=== PATIENT | male | born 1945 | race Caucasian/White ===

== ENCOUNTER 2017-01-22 18:05 | Inpatient (IN) ==
--- NOTE | 2017-01-22 18:23 | Emergency Department Note ---
Disposition Clinical Impression: Suicidal ideation, Syncope Disposition: Still a Patient Condition: Fair Referrals: NO,PCP [Primary Care Provider] - Forms: ED Satisfaction Letter Time of Disposition: 18:47 Psych HPI - General Chief Complaint: ED Psychiatric Symptoms Stated Complaint: unresponsive/suicidal Time Seen by Provider: 01/22/17 18:08 Source: patient, EMS Mode of arrival: EMS Limitations: altered mental status Nursing Notes Reviewed: Yes Vital Signs Reviewed: Yes - History of Present Illness HPI Narrative: Patient presents to the ED via EMS after being found unresponsive. EMS reports that they were called to the scene after a family member found the patient fully closed, laying face down in the bathtub with a bloody nose. EMS states that they rolled the patient over and he was very pale and dusky. States that he had a very weak thready pulse with a rate of 40 that was barely palpable. After rolling him over on his back. He did become more awake and alert. IV was established in route and fluids are started. Upon arrival to the emergency department, the patient is awake and states that he just wants to . He states that he cannot take it anymore. He admits to drinking a large amount of alcohol today, much more than usual. He denies any ingestions. He does not remember what happened. EMS reports that it looked like he would have walked into the bathroom and thrown himself over a cabinet into the bathtub. Patient denies suicide attempt but states that he just wants to go to sleep and . He complains of a headache. And neck pain. No changes in vision, chest pain, shortness of breath, abdominal pain, nausea or vomiting. He is unsure of the medical problems he has. - Related Data Home Medications Medication Instructions Recorded Confirmed Buspirone HCl [Buspar] 7.5 mg PO BID 04/23/15 04/23/15 Calcium Carbonate/Vitamin D3 2 cap PO QPM 04/23/15 04/23/15 [Calcium 600 + Vitamin D Sftgl] Cinnamon Bark [Cinnamon] 1,000 mg PO DAILY 04/23/15 04/23/15 Cyanocobalamin (Vitamin B-12) 1,000 mcg PO DAILY 04/23/15 04/23/15 [Vitamin B12] Docusate [Colace] 100 mg PO TID PRN 04/23/15 04/23/15 Fexofenadine HCl 180 mg PO HS 04/23/15 04/23/15 Finasteride 5 mg PO DAILY 04/23/15 04/23/15 Fluticasone Propionate 16 gm NS BID 04/23/15 04/23/15 Saw [place] Fruit [Saw [place]] 900 mg PO BID 04/23/15 04/23/15 TraZODone 50 mg PO HS PRN 04/23/15 04/23/15 Vitamin B Complex 1 each PO DAILY 04/23/15 04/23/15 Previous Rx's Medication Instructions Recorded Aspirin Enteric Coated [Aspirin EC] 81 mg PO DAILY tablet. 04/24/15 FLUoxetine HCl [PROzac] 20 mg PO DAILY #14 capsule 04/24/15 Lisinopril [Prinivil] 10 mg PO 14 #14 tablet 04/24/15 Metoprolol [Lopressor] 25 mg PO BID #28 tablet 04/24/15 Paroxetine [Paxil] 20 mg PO DAILY #14 tablet 04/24/15 Allergies Allergy/AdvReac Type Severity Reaction Status Date / Time No Known Allergies Allergy Verified 04/23/15 07:13 All systems ED: reviewed and negative except as stated. (Although I do question if the patient is reliable) ENT ED: Reports: epistaxis Musculoskeletal: Reports: neck pain Neurological: Reports: headache Psychiatric: Reports: depression, suicidal thoughts Past Medical History - Past Medical History Attestation: Yes The following information was validated with the patient. Source: old records reviewed Medical history: Reports: other Surgical history: Reports: cataract, other (sigmoid diverticulitis with pericolic abscess s/p exp lap, s/p sigmoid resection 01/2012) Psychiatric history: Reports: anxiety, depression - Social History Smoking Status: Never smoker Smokeless Tobacco Status: No Alcohol use: Reports: heavy, recent Drug use: Reports: none Physical Exam - General Limitations: other General appearance: appears intoxicated, lethargic - Head Head exam: other (Multiple abrasions and dried blood. Hematomas to the head.) - Eye Eye exam: Present: normal appearance, PERRL, EOMI, other (EMS reports that the patient's pupils were 2 mm and barely reactive upon arrival, they are 3 mm and briskly reactive currently) - ENT ENT exam: other (Tried blood in the left nose, extensive amount of dried blood in the face. No facial crepitus or obvious fractures) - Neck Neck exam: Present: tenderness (Midline) - Chest Chest inspection: Present: normal inspection, symmetric chest wall rise - Respiratory Respiratory exam: Present: normal lung sounds bilaterally - Cardiovascular Cardiovascular exam: Present: regular rate, normal rhythm, normal heart sounds - Abdominal Exam Abdominal exam: Present: soft, Non-Tender. Absent: tenderness, distention, guarding, rebound, rigidity - Extremities Exam Extremities exam: Present: normal inspection, full ROM. Absent: tenderness, pedal edema - Neurological Exam Neurological exam: Present: alert, oriented X3, CN II-XII intact - Psychiatric Psychiatric exam: Present: depressed - Skin Skin exam: Present: warm, dry, normal color Course - Reevaluation(s) Reevaluation #1: Patient with labs and CT imaging. Differential is very broad. Patient is suicidal currently. Full tox screen. Could be related to syncope or worse. He was admitted to him. He will be signed out to the incoming night time team. Vital Signs Temperature 97.6 F 01/22/17 18:08 Pulse Rate 67 01/22/17 18:08 Respiratory Rate 16 01/22/17 18:08 Blood Pressure 119/81 01/22/17 18:08 O2 Sat by Pulse Oximetry 91 01/22/17 18:08 Temperature 97.6 F 01/22/17 18:08 Pulse Rate 67 01/22/17 18:08 Respiratory Rate 16 01/22/17 18:08 Blood Pressure 119/81 01/22/17 18:08 O2 Sat by Pulse Oximetry 91 01/22/17 18:08 Oxygen Delivery Oxygen Delivery Room Air Psych - Lab Data Result diagrams: 01/22/17 18:22 Lab Results 01/22/17 Range/Units 18:22 WBC 6.5 (4.3-11.1) K/mcL RBC 4.83 (4.19-5.50) M/mcL Hgb 14.5 (12.9-16.9) g/dL Hct 44.8 (37.5-50.1) % MCV 92.8 (83.0-100.0) fL MCH 30.0 (28.0-33.3) pg MCHC 32.4 (31.6-35.5) g/dL RDW 13.6 (11.5-14.5) % Plt Count 174 (140-400) K/mcL MPV 9.3 L (9.4-12.4) fL Immature Gran % 0.6 (0-4) % Seg Neutrophils % 79.1 % Lymphocytes % 14.4 % Monocytes % 5.4 % Eosinophils % 0.2 % Basophils % 0.3 % Neutrophils # 5.1 (1.6-8.9) K/mcL Lymphocytes # 0.9 (0.6-4.6) K/mcL Monocytes # 0.4 (0.0-1.3) K/mcL Eosinophils # 0.0 (0.0-0.6) K/mcL Basophils # 0.0 (0.0-0.2) K/mcL - EKG Data EKG attestation: Yes I reviewed and interpreted this EKG. EKG results narrative: Sinus rhythm with sinus arrhythmia, rate 64, MI interval 162, QRS 94, QTC 421, left axis deviation, no acute ischemic changes Psychiatric Medical Clearance - Medical Clearance Checklist Medical History: No Social History Section defined Current Vitals: Last Vital Signs Temp 97.6 F 01/22/17 18:08 Pulse 67 01/22/17 18:08 Resp 16 01/22/17 18:08 BP 119/81 01/22/17 18:08 Pulse Ox 91 01/22/17 18:08 Abnormal Labs: Abnormal lab results MPV 9.3 fL (9.4-12.4) L 01/22/17 18:22 Statement of Medical Clearance: I have evaluated the patient, reviewed diagnostic information, and certify that the patient's medical condition is sufficiently stable that transfer to the psychiatric unit does not pose a significant risk of deterioration. S.B.A.R. - S.B.A.R. Situation: Demographics, MOA Background: Presenting Complaint, Relevant PMH, Meds, & Allergies Assessment: Vital Signs, Course and respsone to treatment, Exam Concerns, Patient/Family Expectation, Pertinant Lab Results, Outstanding Labs Recommendation: Barrier(s) to disposition, Recommendation based on pending studies, treatments, or consults S.B.A.R. Report Given to: Dr. Barahona Attestation Statement - Attestation Attestation: Patient was seen with resident physician. I reviewed the history, physical, assessment and plan, and agree with the findings. I also personally evaluated this patient and had [id number] time with this patient. 71-year-old male who presents to the emergency department after being found by family member aurora in the bathtub. EMS reports that he was found face down with a bloody nose that his only complaints were that he had intermittent bloody nose through the course of the day. They said he had a thready pulse initially but responded well to verbal stimulation. Upon arrival and in questioning patient states that he drank a lot today and he just wants to . It seems that he fell forward into the bathtub but it is unclear if this was a syncopal episode or if this is related to intoxication. Patient does not remember the event. His primary complaint is suicidal ideation. He says he has a headache and some neck tenderness as well. On examination ENT patient has blood around the nares especially in the left side. He also has abrasion to the forehead. His head is diffusely tender with no step-offs. His neck is also diffusely tender with no step-offs. Heart and lungs are both unremarkable with normal breath sounds and regular rhythm. Abdomen is soft and nontender extremities show no evidence of trauma is otherwise stable. Neurologically the patient answers all questions he has no focal neurologic deficits his pupils are equal and reactive. Skin patient has some blood on the skin of especially about the face with no significant traumatic injury indications noted. We will do workup to include a head CT scan troponin EKG and full toxicology screen. Depending on the findings will determine whether or not the patient needs to be admitted for detoxification or if one A can see him for his suicidal ideation. Hemodynamically the patient was stable from the time he arrived to the time patient was signed out to the night club manager doctor. Agree with the resident physician assessment and plan.
[2017-01-22 18:41] LABS: Basophils % 0.3 %; Eosinophils % 0.2 %; Hematocrit 44.8 % (37.5-50.1); Hemoglobin 14.5 g/dL (12.9-16.9); Immature Granulocytes % 0.6 % (0-4); Lymphocytes # 0.9 K/mcL (0.6-4.6); Lymphocytes % 14.4 %; Mean Corpuscular HGB Conc 32.4 g/dL (31.6-35.5); Mean Corpuscular Volume 92.8 fL (83.0-100.0); Mean Platelet Volume 9.3 fL (9.4-12.4); Monocytes # 0.4 K/mcL (0.0-1.3); Monocytes % 5.4 %; Neutrophils # 5.1 K/mcL (1.6-8.9); Platelet Count 174 K/mcL (140-400); Red Blood Count 4.83 M/mcL (4.19-5.50); Red Cell Distribution Width 13.6 % (11.5-14.5); Segmented Neutrophils % 79.1 %
[2017-01-22] MEDS: 0.9 % Sodium Chloride 1,000 ML IVC ONE ×2 (18:43→23:12)
[2017-01-22 18:50] LABS: Bilirubin,Urine Negative (Negative); Blood,Urine Moderate (Negative); Clarity,Urine Clear (Clear); Color,Urine Yellow (Yellow); Glucose,Urine (UA) Normal (Normal); Ketones,Urine Trace mg/dL (Negative); Leukocyte Esterase,Urine Negative (Negative); Nitrite,Urine Negative (Negative); Protein,Urine 30 mg/dL (Neg-Trace); Specific Gravity,Urine 1.024 (1.010-1.025); Urobilinogen,Urine Normal (Normal)
[2017-01-22 18:51] LABS: Bacteria,Urine None Seen per hpf (None-Few); Hyaline Casts,Urine None Seen per lpf (None-Few); RBC,Urine 30-50 per hpf (0-3); Squamous Epithelial Cell,Urine Many per lpf (None-Few); WBC,Urine 0-3 per hpf (0-3)
[2017-01-22 18:57] LABS: Amphetamine Screen,Urine Negative ng/mL (Cutoff=1000); Barbiturate Screen,Urine Negative ng/mL (Cutoff=200); Benzodiazepines Screen,Urine Negative ng/mL (Cutoff=200); Cannabinoid Screen,Urine Negative ng/mL (Cutoff = 50); Cocaine Screen,Urine Negative ng/mL (Cutoff= 300); Opiate Screen,Urine Negative ng/mL (Cutoff=300); Phencyclidine Screen,Urine Negative ng/mL (Cutoff=25)
[2017-01-22 18:57] LABS: Acetaminophen < 1.0 mcg/mL (10-30); Alanine Aminotransferase 54 Units/L (0-55); Albumin 3.4 g/dL (3.5-5.0); Albumin/Globulin Ratio 0.9 (1.1-2.2); Alkaline Phosphatase 38 Units/L (38-126); Aspartate Amino Transferase 87 Units/L (5-34); BUN/Creatinine Ratio 13 (6-26); Bilirubin,Direct 0.2 mg/dL (0.0-0.5); Bilirubin,Indirect 0.1 mg/dL (0.0-1.2); Bilirubin,Total 0.3 mg/dL (0.2-1.2); Blood Urea Nitrogen 13 mg/dL (8-26); Calcium 8.5 mg/dL (8.6-10.8); Carbon Dioxide 20 mEq/L (19-29); Chloride 106 mEq/L (98-109); Ethanol 297 mg/dL (0-10); Globulin 3.8 g/dL (2.4-3.5); Glucose 159 mg/dL (70-99); Osmolality,Calculated 295 (280-300); Potassium 4.2 mEq/L (3.5-4.5); Salicylate < 5.0 mg/dL (15-30); Sodium 141 mEq/L (136-145); Total Protein 7.2 g/dL (6.0-8.3); eGFR For African Americans > 60 (> 60); eGFR For Non-African Americans > 60 (> 60)
[2017-01-22 19:16] LABS: Thyroid Stimulating Hormone 1.157 mcIU/mL (0.350-4.840)
--- NOTE | 2017-01-22 20:44 | Emergency Department Note ---
Addendum entered and electronically signed by Ryan Reza DO 01/22/17 20 :44: EKG shows sinus rhythm at 64 with left axis deviation. No ST elevation or depression. No pathologic T-wave inversions. No Q waves. No EKG available for comparison. Original Note: Disposition Clinical Impression: Suicidal ideation, Syncope, Alcohol intoxication Disposition: Admitted As Inpatient Condition: Fair Referrals: NO,PCP [Primary Care Provider] - Forms: ED Satisfaction Letter Time of Disposition: 20:44 General Adult HPI - General Chief complaint: ED Psychiatric Symptoms Stated complaint: unresponsive/suicidal Time Seen by Provider: 01/22/17 18:08 Source: patient, EMS Mode of arrival: EMS Limitations: other - History of Present Illness Pain Scale: 5 - Related Data Home Medications Medication Instructions Recorded Confirmed Buspirone HCl [Buspar] 7.5 mg PO BID 04/23/15 04/23/15 Calcium Carbonate/Vitamin D3 2 cap PO QPM 04/23/15 04/23/15 [Calcium 600 + Vitamin D Sftgl] Cinnamon Bark [Cinnamon] 1,000 mg PO DAILY 04/23/15 04/23/15 Cyanocobalamin (Vitamin B-12) 1,000 mcg PO DAILY 04/23/15 04/23/15 [Vitamin B12] Docusate [Colace] 100 mg PO TID PRN 04/23/15 04/23/15 Fexofenadine HCl 180 mg PO HS 04/23/15 04/23/15 Finasteride 5 mg PO DAILY 04/23/15 04/23/15 Fluticasone Propionate 16 gm NS BID 04/23/15 04/23/15 Saw [place] Fruit [Saw [place]] 900 mg PO BID 04/23/15 04/23/15 TraZODone 50 mg PO HS PRN 04/23/15 04/23/15 Vitamin B Complex 1 each PO DAILY 04/23/15 04/23/15 Previous Rx's Medication Instructions Recorded Aspirin Enteric Coated [Aspirin EC] 81 mg PO DAILY tablet. 04/24/15 FLUoxetine HCl [PROzac] 20 mg PO DAILY #14 capsule 04/24/15 Lisinopril [Prinivil] 10 mg PO 14 #14 tablet 04/24/15 Metoprolol [Lopressor] 25 mg PO BID #28 tablet 04/24/15 Paroxetine [Paxil] 20 mg PO DAILY #14 tablet 04/24/15 Allergies Allergy/AdvReac Type Severity Reaction Status Date / Time No Known Allergies Allergy Verified 04/23/15 07:13 ENT ED: Reports: epistaxis Musculoskeletal: Reports: neck pain Neurological: Reports: headache Psychiatric: Reports: depression, suicidal thoughts Past Medical History - Past Medical History Medical history: Reports: other Surgical history: Reports: cataract, other (sigmoid diverticulitis with pericolic abscess s/p exp lap, s/p sigmoid resection 01/2012) Psychiatric history: Reports: anxiety, depression - Social History Smoking Status: Never smoker Smokeless Tobacco Status: No Alcohol use: Reports: heavy, recent Drug use: Reports: none Physical Exam - General Limitations: other General appearance: appears intoxicated, lethargic Course - Reevaluation(s) Reevaluation #1: Patient taken in signout from Dr. Pichardo. Blood alcohol is 300. CT of his head and cervical spine are negative. Chest x-rays negative. GCS is 15 at this time. Vitals are stable. Patient will need to be admitted for further evaluation of his alcohol intoxication, syncopal event, and suicidal ideations. Patient and family are agreeable this time. Accepted by Dr. Grimes Time: 20:43 Vital Signs Temperature 97.6 F 01/22/17 18:08 Pulse Rate 67 01/22/17 18:08 Respiratory Rate 16 01/22/17 18:08 Blood Pressure 119/81 01/22/17 18:08 O2 Sat by Pulse Oximetry 91 01/22/17 18:08 Temperature 97.6 F 01/22/17 18:08 Pulse Rate 87 01/22/17 20:40 Respiratory Rate 20 01/22/17 20:40 Blood Pressure 135/95 01/22/17 20:40 O2 Sat by Pulse Oximetry 97 01/22/17 20:40 Oxygen Delivery Oxygen Delivery Simple Mask Medical Decision Making - Lab Data Result diagrams: 01/22/17 18:22 01/22/17 18:22 Lab Results 01/22/17 01/22/17 01/22/17 Range/Units 18:22 18:22 18:22 WBC 6.5 (4.3-11.1) K/mcL RBC 4.83 (4.19-5.50) M/mcL Hgb 14.5 (12.9-16.9) g/dL Hct 44.8 (37.5-50.1) % MCV 92.8 (83.0-100.0) fL MCH 30.0 (28.0-33.3) pg MCHC 32.4 (31.6-35.5) g/dL RDW 13.6 (11.5-14.5) % Plt Count 174 (140-400) K/mcL MPV 9.3 L (9.4-12.4) fL Immature Gran % 0.6 (0-4) % Seg Neutrophils % 79.1 % Lymphocytes % 14.4 % Monocytes % 5.4 % Eosinophils % 0.2 % Basophils % 0.3 % Neutrophils # 5.1 (1.6-8.9) K/mcL Lymphocytes # 0.9 (0.6-4.6) K/mcL Monocytes # 0.4 (0.0-1.3) K/mcL Eosinophils # 0.0 (0.0-0.6) K/mcL Basophils # 0.0 (0.0-0.2) K/mcL Sodium 141 (136-145) mEq/L Potassium 4.2 (3.5-4.5) mEq/L Chloride 106 (98-109) mEq/L Carbon Dioxide 20 (19-29) mEq/L BUN 13 (8-26) mg/dL Creatinine 1.03 (0.72-1.25) mg/dL Est GFR ( Amer) > 60 (> 60) Est GFR (Non-Af Amer) > 60 (> 60) BUN/Creatinine Ratio 13 (6-26) Glucose 159 H (70-99) mg/dL Calculated Osmolality 295 (280-300) Calcium 8.5 L (8.6-10.8) mg/dL Total Bilirubin 0.3 (0.2-1.2) mg/dL Direct Bilirubin 0.2 (0.0-0.5) mg/dL Indirect Bilirubin 0.1 (0.0-1.2) mg/dL AST 87 H (5-34) Units/L ALT 54 (0-55) Units/L Alkaline Phosphatase 38 (38-126) Units/L Troponin I 0.00 (0-0.03) ng/mL Serum Total Protein 7.2 (6.0-8.3) g/dL Albumin 3.4 L (3.5-5.0) g/dL Globulin 3.8 H (2.4-3.5) g/dL Albumin/Globulin Ratio 0.9 L (1.1-2.2) TSH 1.157 (0.350-4.840) mcIU/mL Urine Color (Yellow) Urine Clarity (Clear) Urine pH (5.0-8.0) pH Units Ur Specific Almo (1.010-1.025) Urine Protein (Neg-Trace) mg/dL Urine Glucose (UA) (Normal) mg/dL Urine Ketones (Negative) mg/dL Urine Blood (Negative) Urine Nitrite (Negative) Urine Bilirubin (Negative) Urine Urobilinogen (Normal) mg/dL Ur Leukocyte Esterase (Negative) Urine Microscopic RBC (0-3) per hpf Urine Microscopic WBC (0-3) per hpf Ur Squamous Epith Cells (None-Few) per lpf Urine Bacteria (None-Few) per hpf Hyaline Casts (None-Few) per lpf Salicylates < 5.0 L (15-30) mg/dL Urine Opiates Screen (Mmfqvq=636) ng/mL Acetaminophen < 1.0 L (10-30) mcg/mL Ur Barbiturates Screen (Zvkcat=862) ng/mL Ur Phencyclidine Scrn (Cutoff=25) ng/mL Ur Amphetamines Screen (Wzxsha=5460) ng/mL U Benzodiazepines Scrn (Zszvnf=294) ng/mL Urine Cocaine Screen (Cutoff= 300) ng/mL U Marijuana (THC) Screen (Cutoff = 50) ng/mL Ethyl Alcohol 297 H (0-10) mg/dL 01/22/17 01/22/17 Range/Units 18:40 18:40 WBC (4.3-11.1) K/mcL RBC (4.19-5.50) M/mcL Hgb (12.9-16.9) g/dL Hct (37.5-50.1) % MCV (83.0-100.0) fL MCH (28.0-33.3) pg MCHC (31.6-35.5) g/dL RDW (11.5-14.5) % Plt Count (140-400) K/mcL MPV (9.4-12.4) fL Immature Gran % (0-4) % Seg Neutrophils % % Lymphocytes % % Monocytes % % Eosinophils % % Basophils % % Neutrophils # (1.6-8.9) K/mcL Lymphocytes # (0.6-4.6) K/mcL Monocytes # (0.0-1.3) K/mcL Eosinophils # (0.0-0.6) K/mcL Basophils # (0.0-0.2) K/mcL Sodium (136-145) mEq/L Potassium (3.5-4.5) mEq/L Chloride (98-109) mEq/L Carbon Dioxide (19-29) mEq/L BUN (8-26) mg/dL Creatinine (0.72-1.25) mg/dL Est GFR ( Amer) (> 60) Est GFR (Non-Af Amer) (> 60) BUN/Creatinine Ratio (6-26) Glucose (70-99) mg/dL Calculated Osmolality (280-300) Calcium (8.6-10.8) mg/dL Total Bilirubin (0.2-1.2) mg/dL Direct Bilirubin (0.0-0.5) mg/dL Indirect Bilirubin (0.0-1.2) mg/dL AST (5-34) Units/L ALT (0-55) Units/L Alkaline Phosphatase (38-126) Units/L Troponin I (0-0.03) ng/mL Serum Total Protein (6.0-8.3) g/dL Albumin (3.5-5.0) g/dL Globulin (2.4-3.5) g/dL Albumin/Globulin Ratio (1.1-2.2) TSH (0.350-4.840) mcIU/mL Urine Color Yellow (Yellow) Urine Clarity Clear (Clear) Urine pH 6.0 (5.0-8.0) pH Units Ur Specific [place]mo 1.024 (1.010-1.025) Urine Protein 30 H (Neg-Trace) mg/dL Urine Glucose (UA) Normal (Normal) mg/dL Urine Ketones Trace H (Negative) mg/dL Urine Blood Moderate H (Negative) Urine Nitrite Negative (Negative) Urine Bilirubin Negative (Negative) Urine Urobilinogen Normal (Normal) mg/dL Ur Leukocyte Esterase Negative (Negative) Urine Microscopic RBC 30-50 H (0-3) per hpf Urine Microscopic WBC 0-3 (0-3) per hpf Ur Squamous Epith Cells Many H (None-Few) per lpf Urine Bacteria None Seen (None-Few) per hpf Hyaline Casts None Seen (None-Few) per lpf Salicylates (15-30) mg/dL Urine Opiates Screen Negative (Wkbcpl=437) ng/mL Acetaminophen (10-30) mcg/mL Ur Barbiturates Screen Negative (Topfzh=868) ng/mL Ur Phencyclidine Scrn Negative (Cutoff=25) ng/mL Ur Amphetamines Screen Negative (Iguwts=1253) ng/mL U Benzodiazepines Scrn Negative (Higjjz=991) ng/mL Urine Cocaine Screen Negative (Cutoff= 300) ng/mL U Marijuana (THC) Screen Negative (Cutoff = 50) ng/mL Ethyl Alcohol (0-10) mg/dL Attestation Statement - Attestation Attestation: I examined this patient and my medical decision-making was reviewed with the CHAIN SALES REPRESENTATIVE/PA/Advanced Practice Nurse/Resident Physician. I agree with the documented findings, disposition and treatment plan as described except to the extent set forth below. Patient to the emergency department after a fall versus syncope. Patient consumed a large quantity of alcohol today. The patient insulin the bathroom where he struck his face in the bathtub. Family stated he was unresponsive when they got to him. He has been depressed undergoing some counseling. He was signed out as pending disposition. His labs show an alcohol just under 300. CT scan show no fractures or intracranial hemorrhage. Patient is admitted to medicine for medical clearance with a pink slip on the chart. Family concerned because he has been stating that he does not want to live anymore.
[2017-01-22] MEDS ORDERED: Ondansetron 4 MG/2 ML VIAL IVP ONE (22:09)
[2017-01-22] MEDS ORDERED: Ondansetron 4 MG/2 ML VIAL ONE (22:12)
--- NOTE | 2017-01-22 22:26 | Internal Med History&Physical ---
Date of Encounter: 01/22/17 Time of Encounter: 22:24 Assessment and Plan (1) Suicidal ideation Current visit: Yes Status: Acute Patient currently denies any suicidal ideation. However, he states that he has been having suicidal ideation recently. He also describes a plan to end his life in great detail. He consumed excessive amounts of alcohol to try to relax when his was not home. Patient is at high risk of committing suicide. He will be admitted to the hospital. Psychiatric consult will be requested. Patient may require inpatient psychiatric hospitalization once his acute all call intoxication resolves. We will defer to psychiatry and follow-up recommendations. 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 Patient is high risk due to risk of committing suicide and possible need for inpatient psychiatric hospitalization. Expected length of stay is at least 2 midnights. Expected discharge disposition is inpatient psychiatric facility. (2) Alcohol intoxication Current visit: Yes Status: Acute Patient consumed a large amount of all call when his family was not home. His blood alcohol level was extremely elevated. We will admit the patient and monitor in the hospital. We will place the patient on thiamine and folic acid and provide intravenous fluids. Patient will have a bedside dysphagia screening. If he passes, he will be given food to eat. Qualifiers: Complication of substance-induced condition: uncomplicated Qualified Code(s ): F10.120 - Alcohol abuse with intoxication, uncomplicated (3) Major depression, recurrent, chronic Current visit: Yes Status: Chronic Psychiatric consult. Continue home medications. (4) Bleeding from the nose Current visit: Yes Status: Acute Patient has acute epistaxis that happened this morning. He has a history of epistaxis in the past that required cauterization. Currently, the patient does not have any bleeding. We will monitor his epistaxis. If he has further episodes of epistaxis, will consult ENT in the morning. Internal Medicine - H&P: HPI Chief complaint: Alcohol intoxication; Suicidal ideation Admitted From: Emergency Dept Plans for Post Hospital Care: Transfer Psych Facility History of present illness: Mr. Pratt is a 71 year old male who presented to the hospital after he sustained a fall at home. Currently, in the emergency room, he is accompanied by his and his daughter. His states that she has been out of town over the past 3 days. She last saw him on when he was doing fine. According to her, he consumes about 1-2 beers daily. None of the family members have seen the patient in over 3 days. Today, when the called the patient on her way back, the patient did not sound well. The patient's daughter went to check on him. The daughter states that the patient had slurred speech and was not looking good and was weak when he was walking around. When she went to do some work, she heard the patient fall in the restroom. When she went to the restroom, the patient was laying on the floor. Hence, she called EMS. EMS arrived and the patient was placed on oxygen supplementation via nonrebreather with 15 L of flow as he was found to have hypoxia. Initially, he was drowsy. However, the patient eventually was able to respond to their commands and was oriented 4 according to EMS records. The daughter states that the patient had bleeding from his nose prior to the fall. The patient states that he has noticed bleeding from his nose this morning. He states that he has a history of nosebleeds in the past which required cauterization on both his nostrils. Currently, he denies having any bleeding in his nose. His states that the patient has had depression with which she has been struggling for his entire life. She states that he follows up with a psychiatrist and a psychologist. According to her, his anti-depressant medications were changed about 1 year ago and he has had good response to therapy. The patient states that he started consuming all call last night where he was consuming 3-4 rounds of hard liquor (bourbon). He started consuming alcohol as he took it as an opportunity when his was away from home. He states that he was not consuming all call to end his life. However, when asked if he has any suicidal thoughts, he states that he has been having thoughts of committing suicide recently. Currently, he denies having any thoughts to hurt himself. However, when questioned if he has a plan to end his life, he states that he does. On asking about the details of the plan, he states that his plan is to go to a motel, consume a lot of alcohol, filled it out with water, turn on the hairdryer, lie down in the tub and drop the hairdryer in the water. He currently denies any chest pain, difficulty breathing, cough or wheezing. He reports some pain in the back of his head from his fall. He denies any diarrhea. He denies any abdominal pain. He does report some nausea but denies any vomiting. Past Med Surg Social Fam HX - Past Medical History Attestation: Yes The following information was validated with the patient. Source: patient, obtained from family Medical history: other Psychiatric history: anxiety, depression - Past Surgical History Surgical History: cataract, other (sigmoid diverticulitis with pericolic abscess s/p exp lap, s/p sigmoid resection 01/2012) - Social History Smoking Status: Never smoker Smokeless Tobacco Status: No Alcohol use: heavy, recent Drug use: none Current living situation: Home, With Family Activity Level: Independent ambulation - Family History Mother Adopted: No Living Status: - Additional Family History Additional family history: reviewed; not pertinent Internal Medicine - H&P: Meds Buspirone HCl [Buspar] 7.5 mg PO BID 04/23/15 [History] Calcium Carbonate/Vitamin D3 [Calcium 600 + Vitamin D Sftgl] 2 cap PO QPM [History] Cinnamon Bark [Cinnamon] 1,000 mg PO DAILY 04/23/15 [History] Cyanocobalamin (Vitamin B-12) [Vitamin B12] 1,000 mcg PO DAILY 04/23/15 [History ] Docusate [Colace] 100 mg PO TID PRN 04/23/15 [History] Fexofenadine HCl 180 mg PO HS 04/23/15 [History] Finasteride 5 mg PO DAILY 04/23/15 [History] Fluticasone Propionate 16 gm NS BID 04/23/15 [History] Saw [place] Fruit [Saw [place]] 900 mg PO BID 04/23/15 [History] TraZODone 50 mg PO HS PRN 04/23/15 [History] Vitamin B Complex 1 each PO DAILY 04/23/15 [History] Aspirin Enteric Coated [Aspirin EC] 81 mg PO DAILY tablet. 04/24/15 [Rx] FLUoxetine HCl [PROzac] 20 mg PO DAILY #14 capsule 04/24/15 [Rx] Lisinopril [Prinivil] 10 mg PO 14 #14 tablet 04/24/15 [Rx] Metoprolol [Lopressor] 25 mg PO BID #28 tablet 04/24/15 [Rx] Paroxetine [Paxil] 20 mg PO DAILY #14 tablet 04/24/15 [Rx] Allergies No Known Allergies Allergy (Verified 04/23/15 07:13) All Systems PM: A 10-system review of systems was performed and is negative for pertinent findings except as documented above in the HPI. Review of systems: 10 systems have been reviewed and are negative except as mentioned in the history of present illness - Constitutional Vitals: Temp Pulse Resp BP Pulse Ox 97.6 F 87 16 132/87 97 01/22/17 18:08 01/22/17 20:40 01/22/17 22:07 01/22/17 22:07 01/22/17 20:40 Exam: Gen.: Lying in bed on a nonrebreather. Mild to moderate distress. Eyes: Pupils equal, round and reactive to light. Extraocular muscles intact. ENT: Moist mucous membranes. No oropharyngeal erythema or discharge. Dried blood noted at the nostrils. Chest: Clear to auscultation bilaterally. No adventitious sounds present. CVS: First and second heart sounds present. No murmurs, rubs or gallops. Abdomen: Soft, nontender, nondistended. Bowel sounds present. No hepatosplenomegaly. Skin: No decubitus ulcers appreciated. PERFORMANCE ARCHITECT: No focal neuro deficits present. Psychiatric: Drowsy but arousable, awake and oriented to time, place and person. Lymphatic system: No lymphadenopathy appreciated Internal Med - H&P Results - Labs CBC & Chem 7: 01/22/17 18:22 01/22/17 18:22 - EKG Data -: EKG Interpreted by Myself EKG shows normal: sinus rhythm Rate: normal
[2017-01-22] MEDS ORDERED: Ondansetron 4 MG/2 ML VIAL IVP PRN (22:43)
[2017-01-22] MEDS ORDERED: Naloxone 0.4 MG/ML INJ IVP PRN (22:43)
[2017-01-22] MEDS: 0.9 % Sodium Chloride 1,000 ML IVC SCH (23:12)
[2017-01-23] MEDS: Acetaminophen 325 MG TABLET PO PRN ×3 (01:58→20:43)
[2017-01-23 04:01] LABS: Basophils % 0.1 %; Eosinophils % 0.1 %; Hematocrit 40.4 % (37.5-50.1); Hemoglobin 13.4 g/dL (12.9-16.9); Immature Granulocytes % 0.3 % (0-4); Lymphocytes # 1.1 K/mcL (0.6-4.6); Lymphocytes % 10.9 %; Mean Corpuscular HGB Conc 33.2 g/dL (31.6-35.5); Mean Corpuscular Volume 93.5 fL (83.0-100.0); Monocytes # 0.6 K/mcL (0.0-1.3); Monocytes % 6.3 %; Platelet Count 181 K/mcL (140-400); Red Blood Count 4.32 M/mcL (4.19-5.50); Red Cell Distribution Width 13.5 % (11.5-14.5); Segmented Neutrophils % 82.3 %
[2017-01-23 04:18] LABS: Alanine Aminotransferase 49 Units/L (0-55); Albumin 3.2 g/dL (3.5-5.0); Albumin/Globulin Ratio 0.9 (1.1-2.2); Alkaline Phosphatase 29 Units/L (38-126); Aspartate Amino Transferase 72 Units/L (5-34); BUN/Creatinine Ratio 15 (6-26); Bilirubin,Total 0.5 mg/dL (0.2-1.2); Blood Urea Nitrogen 13 mg/dL (8-26); Calcium 8.1 mg/dL (8.6-10.8); Carbon Dioxide 22 mEq/L (19-29); Chloride 107 mEq/L (98-109); Globulin 3.6 g/dL (2.4-3.5); Glucose 136 mg/dL (70-99); Magnesium 1.8 mg/dL (1.6-2.6); Osmolality,Calculated 292 (280-300); Phosphorous 3.8 mg/dL (2.3-4.7); Potassium 4.3 mEq/L (3.5-4.5); Sodium 140 mEq/L (136-145); Total Protein 6.8 g/dL (6.0-8.3); eGFR For African Americans > 60 (> 60); eGFR For Non-African Americans > 60 (> 60)
[2017-01-23] MEDS: Folic Acid 1 MG TABLET PO SCH (08:04)
[2017-01-23] MEDS: Thiamine (B-1) 100 MG TABLET PO SCH (08:04)
[2017-01-23] MEDS ORDERED: *HR* LORazepam 2 MG/ML VIAL IVP PRN ×3 (10:10)
--- NOTE | 2017-01-23 10:12 | Internal Med Progress Note ---
Date of Encounter: 01/23/17 Time of Encounter: 08:45 - Assessment and plan (1) Epistaxis Current Visit: Yes Status: Acute Assessment and plan: No bleeding at time of review Hb stable Monitor closely (2) HTN (hypertension) Current Visit: Yes Status: Chronic Assessment and plan: Continue home meds Currently controlled Qualifiers: Hypertension type: essential hypertension Qualified Code(s): I10 - Essential (primary) hypertension (3) Hypothyroid Current Visit: Yes Status: Chronic Assessment and plan: Continue synthroid Qualifiers: Hypothyroidism type: unspecified Qualified Code(s): E03.9 - Hypothyroidism , unspecified (4) Major depression, recurrent, chronic Current Visit: Yes Status: Chronic Assessment and plan: Psych eval pending (5) Suicidal ideation Current Visit: Yes Status: Acute Assessment and plan: Patient currently denies any suicidal ideation. However, he states that he has been having suicidal ideation recently. Continue sitter. Psych eval (6) Alcohol intoxication Current Visit: Yes Status: Acute Assessment and plan: Awake and alert now Monitor for withdrawal Start librium CIWA protocol Qualifiers: Complication of substance-induced condition: uncomplicated Qualified Code(s ): F10.120 - Alcohol abuse with intoxication, uncomplicated - Subjective Interval history: 71 Y/O M with hx of alcohol abuse , HTN, DM, Gout, VId D deficincy, Hypothyroidism He is admitted and being managed for suicidal ideation and alcohol intoxication Seen at bedside Denies new complains Denies hx of DTs or seizure with alcohol withdrawal However, patient is tremulous and diaphoretic at time of review Start CIWA protocol Continue current management Follow [facility] eval - Constitutional Vitals: Temp Pulse Resp BP Pulse Ox 98.0 F 92 17 148/88 92 01/23/17 08:07 01/23/17 08:07 01/23/17 08:07 01/23/17 08:07 01/23/17 08:07 General appearance: Present: A&O X 3, pleasant, no acute distress Exam: Diaphoetic, tremulous speech - Head Head exam: Present: atraumatic, normocephalic - Eye Eye exam: Present: PERRL, conjuntiva pink, sclera anicteric Pupils: Present: PERRL - ENT ENT exam: Present: mucous membranes moist - Neck Neck exam general surgery: Present: supple, trachea midline. Absent: lymphadenopathy - Respiratory Respiratory exam: Present: CTAB. Absent: accessory muscle use, rales, rhonchi, wheezes - Cardiovascular Cardiovascular exam: Present: RRR, +S1, +S2. Absent: diastolic murmur, gallop, rubs, systolic murmur - GI/Abdominal GI/Abdominal exam: Present: normal bowel sounds, soft, no peritoneal signs. Absent: distended, tenderness - Extremities Exam Extremities exam: Present: warm, radial pulses palpable and symetrical. Absent : calf tenderness, cyanotic, pedal edema - Neurological Exam Neurological exam: Present: alert, CN II-XII intact, oriented X3, no focal deficits. Absent: pronater drift, facial droop, speech deficit - Skin Skin exam: Present: dry, intact Internal Medicine: Result - Labs CBC & Chem 7: 01/23/17 03:20 01/23/17 03:20 Labs: Short CBC 01/23/17 Range/Units 03:20 WBC 9.7 (4.3-11.1) K/mcL Hgb 13.4 (12.9-16.9) g/dL Hct 40.4 (37.5-50.1) % Plt Count 181 (140-400) K/mcL Neutrophils # 8.0 (1.6-8.9) K/mcL BMP 01/23/17 03:20 Sodium 140 Potassium 4.3 Chloride 107 Carbon Dioxide 22 BUN 13 Creatinine 0.88 Glucose 136 H Calcium 8.1 L Liver Function 01/23/17 Range/Units 03:20 Total Bilirubin 0.5 (0.2-1.2) mg/dL AST 72 H (5-34) Units/L ALT 49 (0-55) Units/L Alkaline Phosphatase 29 L (38-126) Units/L Albumin 3.2 L (3.5-5.0) g/dL Consult Discharge Plan - Plan Referrals: NO,PCP [Primary Care Provider] -
[2017-01-23] MEDS: 0.9 % Sodium Chloride 1,000 ML IVC SCH (12:32)
--- NOTE | 2017-01-23 15:14 | Consult Note ---
Date of Encounter: 01/23/17 Time of Encounter: 15:00 Assessment & Recommendation (1) Major depression, recurrent, chronic Current visit: Yes Status: Chronic Assessment & Recommendation: Recommend admission to psychiatric unit for further evaluation and treatment on involuntary basis, after medical stabilization. (2) Alcohol intoxication Current visit: Yes Status: Acute Qualifiers: Complication of substance-induced condition: uncomplicated Qualified Code(s ): F10.120 - Alcohol abuse with intoxication, uncomplicated History of Present Illness Patient: new to practice Requesting Physician: Obdulia Dominique Reason for consult: Suicidal ideation, intoxication History of present illness: Mr. Pratt is a 71 year old male admitted to the medical service for evaluation of unresponsiveness, "intoxication and reported suicidal ideation. Apparently the patient was intoxicated at home and had a full and family became concerned and he was brought into the hospital by EMS. On admission his alcohol level was 297. And he was placed on CIWA scale for withdrawal. Psychiatric consultation was requested regarding suicidal ideation. Patient reports that she has been treated for depression for many years since 2010, he had been hospitalized at [facility] in the past. He reports he is currently seeing a psychiatrist and therapist at that [facility] and has been taking Lexapro. Patient also has a long history of alcohol dependence and treatment and rehabilitation. Prior to admission patient admitted to consuming large amounts of alcohol and and this has been a pattern of alcohol dependence in his life for many years. Records showed that family was concerned about his depression and intoxication and suicidal ideation. 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 CC: Obdulia Dominique Past Med Surg Social Fam HX - Past Medical History Medical history: other - Past Psychiatric History Psychiatric history: Reports: depression, previous psychiatric hospitalization Past psychiatric history details: History of hospitalization at [facility] in [facility] past 2010 Family psychiatric history: Unknown Family History of Suicide: Unknown - Past Surgical History Surgical History: cataract, other (sigmoid diverticulitis with pericolic abscess s/p exp lap, s/p sigmoid resection 01/2012) - Social History Smoking Status: Never smoker Smokeless Tobacco Status: No Alcohol use: heavy, recent Drug use: none - Family History Mother Adopted: No Living Status: Hx Family Cardiac Disorders: Yes Hx Family Respiratory Disorders: No Hx Family Cancer: No Hx Family GI Disorders: No Hx Family Genitourinary Disorders: No Hx Family Endocrine Disorder: No Hx Family Musculoskeletal Disorders: No Hx Family Neuromuscular Disorders: No Hx Family Neurologic Disorders: No Hx Family HEENT Disorders: No Hx Family Autoimmune Disorders: No Hx Family Reproductive Disorders: No Hx Family Psychosocial Disorders: No Hx Family Medical Disorders: No Medications & Allergies Buspirone HCl [Buspar] 7.5 mg PO BID 04/23/15 [History] Calcium Carbonate/Vitamin D3 [Calcium 600 + Vitamin D Sftgl] 2 cap PO QPM [History] Cinnamon Bark [Cinnamon] 1,000 mg PO DAILY 04/23/15 [History] Cyanocobalamin (Vitamin B-12) [Vitamin B12] 1,000 mcg PO DAILY 04/23/15 [History ] Docusate [Colace] 100 mg PO TID PRN 04/23/15 [History] Fexofenadine HCl 180 mg PO HS 04/23/15 [History] Finasteride 5 mg PO DAILY 04/23/15 [History] Fluticasone Propionate 16 gm NS BID 04/23/15 [History] Saw [place] Fruit [Saw [place]] 900 mg PO BID 04/23/15 [History] TraZODone 50 mg PO HS PRN 04/23/15 [History] Vitamin B Complex 1 each PO DAILY 04/23/15 [History] Aspirin Enteric Coated [Aspirin EC] 81 mg PO DAILY tablet. 04/24/15 [Rx] FLUoxetine HCl [PROzac] 20 mg PO DAILY #14 capsule 04/24/15 [Rx] Lisinopril [Prinivil] 10 mg PO 14 #14 tablet 04/24/15 [Rx] Metoprolol [Lopressor] 25 mg PO BID #28 tablet 04/24/15 [Rx] Paroxetine [Paxil] 20 mg PO DAILY #14 tablet 04/24/15 [Rx] Allergies No Known Allergies Allergy (Verified 04/23/15 07:13) Review of Systems Psychiatric: Reports: depression, suicidal ideation Mental Status Exam Patient orientation: Yes Person, Yes Time, Yes Place Level of alertness: Alert, Sedated Patient appearance: Appropriate, Unkempt Behavior: calm, cooperative, anxious Psychomotor activity: Normal Eye contact: Maintains Eye Contact Mood description: Euthymic/stable Affect description: congruent with mood, constricted Speech pattern: Normal rate, Normal rhythm, Normal tone, Excessive Speech volume: Normal Thought process: Linear, Goal Oriented Thought content: Yes Suicidal ideation, No Homicidal ideation, No Overt delusions Perceptual disturbances: No Auditory hallucinations, No Visual hallucinations Attention span: Capable of Focused Attention Memory description: Grossly Intact Patient reliability: Reliable Historian Intelligence estimate: Average Judgment: Limited Insight: Partial Results - Vital Signs Vital signs: Temp Pulse Resp BP Pulse Ox 97.9 F 93 16 160/94 91 01/23/17 12:06 01/23/17 12:06 01/23/17 12:06 01/23/17 12:06 01/23/17 12:06 - Labs Labs: Laboratory Last Values WBC 9.7 K/mcL (4.3-11.1) 01/23/17 03:20 RBC 4.32 M/mcL (4.19-5.50) 01/23/17 03:20 Hgb 13.4 g/dL (12.9-16.9) 01/23/17 03:20 Hct 40.4 % (37.5-50.1) 01/23/17 03:20 MCV 93.5 fL (83.0-100.0) 01/23/17 03:20 MCH 31.0 pg (28.0-33.3) 01/23/17 03:20 MCHC 33.2 g/dL (31.6-35.5) 01/23/17 03:20 RDW 13.5 % (11.5-14.5) 01/23/17 03:20 Plt Count 181 K/mcL (140-400) 01/23/17 03:20 MPV 10.0 fL (9.4-12.4) 01/23/17 03:20 Immature Gran % 0.3 % (0-4) 01/23/17 03:20 Seg Neutrophils % 82.3 % 01/23/17 03:20 Lymphocytes % 10.9 % 01/23/17 03:20 Monocytes % 6.3 % 01/23/17 03:20 Eosinophils % 0.1 % 01/23/17 03:20 Basophils % 0.1 % 01/23/17 03:20 Neutrophils # 8.0 K/mcL (1.6-8.9) 01/23/17 03:20 Lymphocytes # 1.1 K/mcL (0.6-4.6) 01/23/17 03:20 Monocytes # 0.6 K/mcL (0.0-1.3) 01/23/17 03:20 Eosinophils # 0.0 K/mcL (0.0-0.6) 01/23/17 03:20 Basophils # 0.0 K/mcL (0.0-0.2) 01/23/17 03:20 Sodium 140 mEq/L (136-145) 01/23/17 03:20 Potassium 4.3 mEq/L (3.5-4.5) 01/23/17 03:20 Chloride 107 mEq/L (98-109) 01/23/17 03:20 Carbon Dioxide 22 mEq/L (19-29) 01/23/17 03:20 BUN 13 mg/dL (8-26) 01/23/17 03:20 Creatinine 0.88 mg/dL (0.72-1.25) 01/23/17 03:20 Est GFR ( Amer) > 60 (> 60) 01/23/17 03:20 Est GFR (Non-Af Amer) > 60 (> 60) 01/23/17 03:20 BUN/Creatinine Ratio 15 (6-26) 01/23/17 03:20 Glucose 136 mg/dL (70-99) H 01/23/17 03:20 Calculated Osmolality 292 (280-300) 01/23/17 03:20 Calcium 8.1 mg/dL (8.6-10.8) L 01/23/17 03:20 Phosphorus 3.8 mg/dL (2.3-4.7) 01/23/17 03:20 Magnesium 1.8 mg/dL (1.6-2.6) 01/23/17 03:20 Total Bilirubin 0.5 mg/dL (0.2-1.2) 01/23/17 03:20 Direct Bilirubin 0.2 mg/dL (0.0-0.5) 01/22/17 18:22 Indirect Bilirubin 0.1 mg/dL (0.0-1.2) 01/22/17 18:22 AST 72 Units/L (5-34) H 01/23/17 03:20 ALT 49 Units/L (0-55) 01/23/17 03:20 Alkaline Phosphatase 29 Units/L (38-126) L 01/23/17 03:20 Troponin I 0.00 ng/mL (0-0.03) 01/22/17 18:22 Serum Total Protein 6.8 g/dL (6.0-8.3) 01/23/17 03:20 Albumin 3.2 g/dL (3.5-5.0) L 01/23/17 03:20 Globulin 3.6 g/dL (2.4-3.5) H 01/23/17 03:20 Albumin/Globulin Ratio 0.9 (1.1-2.2) L 01/23/17 03:20 TSH 1.157 mcIU/mL (0.350-4.840) 01/22/17 18:22 Urine Color Yellow (Yellow) 01/22/17 18:40 Urine Clarity Clear (Clear) 01/22/17 18:40 Urine pH 6.0 pH Units (5.0-8.0) 01/22/17 18:40 Ur Specific [place] 1.024 (1.010-1.025) 01/22/17 18:40 Urine Protein 30 mg/dL (Neg-Trace) H 01/22/17 18:40 Urine Glucose (UA) Normal mg/dL (Normal) 01/22/17 18:40 Urine Ketones Trace mg/dL (Negative) H 01/22/17 18:40 Urine Blood Moderate (Negative) H 01/22/17 18:40 Urine Nitrite Negative (Negative) 01/22/17 18:40 Urine Bilirubin Negative (Negative) 01/22/17 18:40 Urine Urobilinogen Normal mg/dL (Normal) 01/22/17 18:40 Ur Leukocyte Esterase Negative (Negative) 01/22/17 18:40 Urine Microscopic RBC 30-50 per hpf (0-3) H 01/22/17 18:40 Urine Microscopic WBC 0-3 per hpf (0-3) 01/22/17 18:40 Ur Squamous Epith Cells Many per lpf (None-Few) H 01/22/17 18:40 Urine Bacteria None Seen per hpf (None-Few) 01/22/17 18:40 Hyaline Casts None Seen per lpf (None-Few) 01/22/17 18:40 Salicylates < 5.0 mg/dL (15-30) L 01/22/17 18:22 Urine Opiates Screen Negative ng/mL (Kjuqcp=741) 01/22/17 18:40 Acetaminophen < 1.0 mcg/mL (10-30) L 01/22/17 18:22 Ur Barbiturates Screen Negative ng/mL (Rucdky=629) 01/22/17 18:40 Ur Phencyclidine Scrn Negative ng/mL (Cutoff=25) 01/22/17 18:40 Ur Amphetamines Screen Negative ng/mL (Ktyxvk=6550) 01/22/17 18:40 U Benzodiazepines Scrn Negative ng/mL (Cqucjb=921) 01/22/17 18:40 Urine Cocaine Screen Negative ng/mL (Cutoff= 300) 01/22/17 18:40 U Marijuana (THC) Screen Negative ng/mL (Cutoff = 50) 01/22/17 18:40 Ethyl Alcohol 297 mg/dL (0-10) H 01/22/17 18:22 Consult Discharge Plan - Plan Referrals: NO,PCP [Primary Care Provider] -
[2017-01-24] MEDS: 0.9 % Sodium Chloride 1,000 ML IVC SCH (03:01)
[2017-01-24] MEDS: Thiamine (B-1) 100 MG TABLET PO SCH (07:31)
[2017-01-24] MEDS: Folic Acid 1 MG TABLET PO SCH (07:31)
[2017-01-24] MEDS: Acetaminophen 325 MG TABLET PO PRN (07:44)
--- NOTE | 2017-01-24 08:22 | Discharge Summary ---
Date of Encounter: 01/24/17 Time of Encounter: 08:20 - Discharge Diagnosis (1) Epistaxis Priority: Primary Status: Resolved (2) HTN (hypertension) Priority: Secondary Status: Chronic Qualifiers: Hypertension type: essential hypertension Qualified Code(s): I10 - Essential (primary) hypertension (3) Hypothyroid Priority: Secondary Status: Chronic Qualifiers: Hypothyroidism type: unspecified Qualified Code(s): E03.9 - Hypothyroidism , unspecified (4) Major depression, recurrent, chronic Priority: Secondary Status: Chronic (5) Suicidal ideation Priority: Primary Status: Acute (6) Alcohol intoxication Priority: Primary Status: Acute Qualifiers: Complication of substance-induced condition: uncomplicated Qualified Code(s ): F10.120 - Alcohol abuse with intoxication, uncomplicated - Discharge Medications Home Medications: Calcium Carbonate/Vitamin D3 [Calcium 600 + Vitamin D Sftgl] 2 cap PO QPM [History] Cinnamon Bark [Cinnamon] 1,000 mg PO DAILY 04/23/15 [History] Cyanocobalamin (Vitamin B-12) [Vitamin B12] 1,000 mcg PO DAILY 04/23/15 [History ] Docusate [Colace] 100 mg PO TID PRN 04/23/15 [History] Fexofenadine HCl 180 mg PO HS 04/23/15 [History] Fluticasone Propionate 1 spray NS BID 04/23/15 [History] Saw [place] Fruit [Saw [place]] 900 mg PO BID 04/23/15 [History] Vitamin B Complex 1 tab PO DAILY 04/23/15 [History] Aspirin Enteric Coated [Aspirin EC] 81 mg PO DAILY tablet. 04/24/15 [Rx] Lisinopril [Prinivil] 10 mg PO 14 #14 tablet 04/24/15 [Rx] Cholecalciferol (D-3) [Vitamin D] 1,000 unit PO DAILY 01/23/17 [History] Escitalopram [Lexapro] 10 mg PO DAILY 01/23/17 [History] Glucosamn/Condroitn/C/Mn/[place]astian [Cvs Glucosamine Chondroitin Tb] 1 tab PO DAILY 01/23/17 [History] Krill/Om-3/Dha/Epa/Phospho/Ast [Krill Oil 1,000 mg Softgel] 1,000 mg PO DAILY [History] Tamsulosin [Flomax] 0.4 mg PO DAILY 01/23/17 [History] Allergies/Adverse Reactions: Allergies No Known Allergies Allergy (Verified 04/23/15 07:13) Date of admission: 01/22/17 21:45 Primary care physician: PCP NO Consults: 01/22/17 22:49 Consult to Nutrition [CONS] Routine Comment: Consulting Provider: NUTRITION Reason for Dietary Consult: Diet Education 01/23/17 10:10 Consult to Tube Rebuilder [CONS] Routine Reason for SW Consult: Alcohol abuse Discharging clinician: Nehemias Kim Anticipated date of discharge: 01/24/17 - Patient Status Disposition: Transfer Psychiatric Hosp Condition: Fair Functional capacity at discharge: independent ambulation Overall status at discharge: patient is progressing back to baseline - Discharge Instructions Follow Up With: NO,PCP [Primary Care Provider] - - Diet and Activity Activity: resume usual activities as tolerated Diet: low salt diet Interval History: See below Hospital course: Mr. Pratt is a 71 Y/O M with hx of alcohol abuse , HTN, DM, Gout, Vit D deficincy, Hypothyroidism He was admitted and being managed for suicidal ideation and alcohol intoxication Seen at bedside, Denies new complains, he is medically stable He had minimal to no requirement for Ativan in the past 24 hrs He was started on librium 5/7, tolerated Patient' work up on admission including brain CT, CXR, CBC, LFT, Chem were unremarkable His vital signs have been stable , physical examination and labs are unremarkable and he is medically cleared to be transferred to in-patient psych for management of his psych issues Recommend they continue current medications in the psych unit - Time Spent with Patient Total time spent providing and/or coordinating discharge services: Less than 30 minutes - Constitutional Vitals: Temp Pulse Resp BP Pulse Ox 97.4 F L 72 14 141/72 94 01/24/17 00:00 01/24/17 00:00 01/24/17 00:00 01/24/17 00:00 01/24/17 03:49 General appearance: Present: A&O X 3, pleasant, no acute distress - Head Head exam: Present: atraumatic, normocephalic - Eye Eye exam: Present: PERRL, conjuntiva pink, sclera anicteric Pupils: Present: PERRL - Neck Neck exam general surgery: Present: supple, trachea midline. Absent: lymphadenopathy - Respiratory Respiratory exam: Present: CTAB. Absent: accessory muscle use, rales, rhonchi, wheezes - Cardiovascular Cardiovascular exam: Present: RRR, +S1, +S2. Absent: diastolic murmur, gallop, rubs, systolic murmur - GI/Abdominal GI/Abdominal exam: Present: normal bowel sounds, soft, no peritoneal signs. Absent: distended, tenderness - Extremities Exam Extremities exam: Present: warm, radial pulses palpable and symetrical. Absent : calf tenderness, cyanotic, pedal edema - Neurological Exam Neurological exam: Present: alert, CN II-XII intact, oriented X3, no focal deficits. Absent: pronater drift, facial droop, speech deficit - Skin Skin exam: Present: dry, intact
[2017-01-24] MEDS ORDERED: Aspirin Enteric Coated 81 MG Tablet PO SCH (09:00)
[2017-01-24] MEDS ORDERED: Cyanocobalamin (B-12) 1,000 MCG TABLET PO SCH (09:00)
[2017-01-24] MEDS ORDERED: Cholecalciferol (D-3) 1,000 UNIT TABLET PO SCH (09:00)
[2017-01-24 13:00] VITALS: BP 147/76
--- NOTE | 2017-01-24 17:05 | Electrocardiograph Report ---
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
== END 2017-01-24 13:40 | DRG 897 ==
LOC: 2ANU 18:05 → EMEROO 18:05 → 3BNU 21:35
PROVIDERS: ADMIT Internal Medicine; ATTEND Nurse Practitioner Family

== ENCOUNTER 2017-01-24 13:26 | Inpatient (IN) ==
--- NOTE | 2017-01-24 14:34 | Psychiatry History & Physical ---
Date of Encounter: 01/24/17 Time of Encounter: 14:27 History of Present Illness Patient Stated Chief Complaint: suicidal ideation Medicare Admission Attestation: For traditional Medicare patients the provided hospital inpatient services are reasonable and necessary and in the case of services not specified as inpatient -only under 42 CFR 419.22 (n), that they are appropriately provided as inpatient services in accordance 42 CFR 412.3. For Critical Access Hospital the patient may reasonably be expected to be discharged or transferred to a hospital within 96 hours after admission to the Critical Access Hospital. Admitted From: Home Plans for Post Hospital Care: Home History of Present Illness: Mr. Pratt is a 71 year old male who fell at his home Tuesday after drinking excessively. His was out of town so he had to call his daughter in [place] to take him to the emergency room. Blood alcohol level close to 0.3. Psychiatry was consulted as Guanako told his physician that he would use a biology department chair in a bath tub to end his life. Seen as a consult and inpatient care was recommended. Today Guanako is stating he meant to communicate that if he chose to end his life he would use a biology department chair but denied any intent. Currently denying SI but admitted to SI in past and has a history of inpatient psychiatric care. Currently under the care of a psychiatrist and prescribed Lexapro. [place] things were going well and that December was one of his best months. Does not understand what happened on Tuesday. Thinks he took advantage of being out of town and started drinking while watching a movie. Admits to excessive alcohol use but reports he was a much heavier drinker in his past. No history of alcohol withrawal symptoms. Currently prescribed Librium. Past Med Surg Social Fam HX - Past Medical History Medical history: other - Past Psychiatric History Psychiatric history: Reports: anxiety, depression, previous psychiatric hospitalization Past psychiatric history details: admisison in 2010 for SI - Past Surgical History Surgical History: cataract, other (sigmoid diverticulitis with pericolic abscess s/p exp lap, s/p sigmoid resection 01/2012) - Social History Smoking Status: Never smoker Smokeless Tobacco Status: No Alcohol use: heavy, recent Drug use: none - Family History Mother Adopted: No Living Status: Hx Family Cardiac Disorders: Yes Hx Family Respiratory Disorders: No Hx Family Cancer: No Hx Family GI Disorders: No Hx Family Endocrine Disorder: No Hx Family Neuromuscular Disorders: No Hx Family Neurologic Disorders: No Hx Family HEENT Disorders: No Hx Family Autoimmune Disorders: No Medications & Allergies Calcium Carbonate/Vitamin D3 [Calcium 600 + Vitamin D Sftgl] 2 cap PO QPM [History] Cinnamon Bark [Cinnamon] 1,000 mg PO DAILY 04/23/15 [History] Cyanocobalamin (Vitamin B-12) [Vitamin B12] 1,000 mcg PO DAILY 04/23/15 [History ] Docusate [Colace] 100 mg PO TID PRN 04/23/15 [History] Fexofenadine HCl 180 mg PO HS 04/23/15 [History] Fluticasone Propionate 1 spray NS BID 04/23/15 [History] Saw [place] Fruit [Saw [place]] 900 mg PO BID 04/23/15 [History] Vitamin B Complex 1 tab PO DAILY 04/23/15 [History] Aspirin Enteric Coated [Aspirin EC] 81 mg PO DAILY tablet. 04/24/15 [Rx] Lisinopril [Prinivil] 10 mg PO 14 #14 tablet 04/24/15 [Rx] Cholecalciferol (D-3) [Vitamin D] 1,000 unit PO DAILY 01/23/17 [History] Escitalopram [Lexapro] 10 mg PO DAILY 01/23/17 [History] Glucosamn/Condroitn/C/Mn/Kathleen [Cvs Glucosamine Chondroitin Tb] 1 tab PO DAILY 01/23/17 [History] Krill/Om-3/Dha/Epa/Phospho/Ast [Krill Oil 1,000 mg Softgel] 1,000 mg PO DAILY [History] Tamsulosin [Flomax] 0.4 mg PO DAILY 01/23/17 [History] Allergies No Known Allergies Allergy (Verified 04/23/15 07:13) Review of Systems Constitutional: Denies: fever, chills, weakness, weight change Eyes: Denies: eye pain, vision change Ears, Nose, Throat: Denies: ear pain, throat pain, dental pain, hearing loss, congestion Cardiovascular: Denies: chest pain, palpitations, dyspnea on exertion Respiratory: Denies: cough, dyspnea, wheezes Gastrointestinal: Denies: abdominal pain, nausea, vomiting, diarrhea, constipation Genitourinary male: Denies: urgency, dysuria, frequency, genital lesions Genitourinary female: Denies: urgency, dysuria, frequency, abnormal menses, dyspareunia Musculoskeletal: Denies: joint swelling, joint pain Integumentary: Denies: rash, lesions, pruritus Neurological: Denies: headache, weakness, numbness, memory loss Endocrine: Denies: fatigue, heat or cold intolerance Hematologic/Lymphatic: Denies: easy bruising, lymphadenopathy Allergic/Immunologic: Denies: urticaria, itchy eyes Mental Status Exam Patient orientation: Yes Person, Yes Time, Yes Place Level of alertness: Alert Patient appearance: Appropriate, Well Groomed Behavior: calm, cooperative Psychomotor activity: Normal Eye contact: Maintains Eye Contact Mood description: Depressed Affect description: congruent with mood, full range Speech pattern: Normal rate, Normal rhythm, Normal tone Speech volume: Normal Thought process: Linear, Goal Oriented Thought content: Yes Suicidal ideation, No Homicidal ideation, No Overt delusions Perceptual disturbances: No Auditory hallucinations, No Visual hallucinations Attention span: Capable of Focused Attention Memory description: Grossly Intact Patient reliability: Reliable Historian Intelligence estimate: Above [place] Judgment: Limited Insight: Partial Exam - HEENT Head exam IM: Present: normal inspection Eye exam IM: Present: periorbital swelling ENT exam IM: Present: mucous membranes moist - Neurological Neurological exam IM: Present: alert, normal gait, oriented X3 - Respiratory Respiratory exam IM: Present: CTAB - GI/Abdominal GI/Abdominal exam IM: Present: normal bowel sounds - Extremities Extremities exam IM: Present: full ROM - Skin Skin exam IM: Present: erythema Assessment and Plan (1) Major depression, recurrent, chronic Current visit: No Status: Chronic Plan: Admit inpatient for safety and stabilization, Close observation, Suicide Precautions per unit protocol, Encourage participation in unit milieu, Group Therapy, Monitor sleep, Monitor appetite, Secure weapons, Family/Supportive other meeting Risks, benefits, side effects, alternatives discussed w/pt: Yes Patient agreeable to treatment: Yes Plans for Post Hospital Care: Home Estimated Length of Stay (Days): 4
[2017-01-24] MEDS: Acetaminophen 325 MG TABLET PO PRN (21:34)
[2017-01-24] MEDS: MOM Conc 10 ML UD.LIQ PO PRN (21:35)
[2017-01-25] MEDS: Acetaminophen 325 MG TABLET PO PRN ×3 (06:35→20:54)
[2017-01-25] MEDS: Aspirin 81 MG TAB.CHEW PO SCH (08:47)
[2017-01-25] MEDS: Thiamine (B-1) 100 MG TABLET PO SCH (08:47)
[2017-01-25] MEDS: Folic Acid 1 MG TABLET PO SCH (08:47)
[2017-01-25] MEDS: MOM Conc 10 ML UD.LIQ PO PRN ×2 (11:26→20:54)
[2017-01-25] MEDS ORDERED: Methyl Salicylate/Menthol 28 GM TUBE TP PRN (15:12)
--- NOTE | 2017-01-25 18:59 | Psychiatry Progress Note ---
Date of Encounter: 01/25/17 Time of Encounter: 18:52 Subjective Interval history: Still depressed but denying SI. Believes his comments were misinterpreted. No intent to act on plan he shared with previous provider. Greatly minimizes alcohol consumption and role it plays in his depression. Social work spent a long time talking to his and she was not aware of the extent of his drinking. Wants him to stop but recognizes he has to come to the decision that he wants to stop. was provided with referrals for support services. She denied feeling like Guanako was an acute threat to himself or to her. Comfortable having him home. Guanako denies any withdrawal symptoms and reports the Librium is making him tired. Will cut dose in half today with plan to eliminate it tomorrow and discharge home. Experiencing some neck and back pain from fall. Not interested in anything but [place]. Review of Systems Constitutional: Denies: fever, chills, weakness, weight change Eyes: Denies: eye pain, vision change Ears, Nose, Throat: Denies: ear pain, throat pain, dental pain, hearing loss, congestion Cardiovascular: Denies: chest pain, palpitations, dyspnea on exertion Respiratory: Denies: cough, dyspnea, wheezes Gastrointestinal: Denies: abdominal pain, nausea, vomiting, diarrhea, constipation Musculoskeletal: Reports: back pain, myalgia. Denies: joint swelling, joint pain Neurological: Denies: headache, weakness, numbness, memory loss Objective: Exam Patient orientation: Yes Person, Yes Time, Yes Place Level of alertness: Alert Patient appearance: Appropriate, Well Groomed Behavior: calm, cooperative Psychomotor activity: Normal Eye contact: Maintains Eye Contact Mood description: Depressed Affect description: full range Speech pattern: Normal rate, Normal rhythm, Normal tone Speech volume: Normal Thought process: Linear, Goal Oriented Thought content: No Suicidal ideation, No Homicidal ideation, No Overt delusions Perceptual disturbances: No Auditory hallucinations, No Visual hallucinations Judgment: Limited Insight: Minimal Results - Vital Signs Vital Signs: Temp Pulse Resp BP 97.6 F 70 16 128/87 01/25/17 09:10 01/25/17 09:10 01/25/17 09:10 01/25/17 09:10 Assessment and Plan (1) Major depression, recurrent, chronic Current visit: No Status: Chronic Plan: Continue hospitalization, Close observation, Suicide Precautions per unit protocol, Encourage participation in unit milieu, Group Therapy, Monitor sleep, Monitor appetite, Secure weapons Risks, benefits, side effects, alternatives discussed w/pt: Yes Patient agreeable to treatment: Yes Consult Discharge Plan - Plan Referrals: [facility] [Outside] - 02/02/17 10:00 am (The above appointment is with Zita Oliveira, PhD.) [facility] [Outside] - 02/22/17 2:00 pm (The above appointment is with Dr. Guevara. This is Dr. Guevara's first available appointment. Office staff will call you if a cancellation in the schedule arises that would allow you to be seen sooner.)
[2017-01-26] MEDS: Acetaminophen 325 MG TABLET PO PRN (06:50)
[2017-01-26 09:22] VITALS: BP 140/92
[2017-01-26] MEDS: Thiamine (B-1) 100 MG TABLET PO SCH (09:40)
[2017-01-26] MEDS: Folic Acid 1 MG TABLET PO SCH (09:40)
[2017-01-26] MEDS: Aspirin 81 MG TAB.CHEW PO SCH (09:40)
--- NOTE | 2017-01-26 13:04 | Discharge Summary ---
Date of Encounter: 01/26/17 Time of Encounter: 12:59 Diagnosis - Discharge Diagnosis (1) Major depression, recurrent, chronic Status: Chronic Medications - Discharge Medications Prescriptions: Aspirin 81 mg PO DAILY #30 tab.chew Escitalopram [Lexapro] 10 mg PO DAILY #30 tablet Folic Acid 1 mg PO DAILY #30 tablet Lisinopril [Zestril] 10 mg PO DAILY #30 tablet Omeprazole [PriLOSEC] 20 mg PO BIDAC #60 capsule. Tamsulosin [Flomax] 0.4 mg PO DAILY #30 capsule Thiamine (B-1) [Vitamin B-1] 100 mg PO DAILY #30 tablet Calcium Carbonate/Vitamin D3 [Calcium 600 + Vitamin D Sftgl] 2 cap PO QPM [History] Cinnamon Bark [Cinnamon] 1,000 mg PO DAILY 04/23/15 [History] Cyanocobalamin (Vitamin B-12) [Vitamin B12] 1,000 mcg PO DAILY 04/23/15 [History ] Docusate [Colace] 100 mg PO TID PRN 04/23/15 [History] Fexofenadine HCl 180 mg PO HS 04/23/15 [History] Fluticasone Propionate 1 spray NS BID 04/23/15 [History] Saw [place] Fruit [Saw [place]] 900 mg PO BID 04/23/15 [History] Vitamin B Complex 1 tab PO DAILY 04/23/15 [History] Aspirin Enteric Coated [Aspirin EC] 81 mg PO DAILY tablet. 04/24/15 [Rx] Lisinopril [Prinivil] 10 mg PO 14 #14 tablet 04/24/15 [Rx] Cholecalciferol (D-3) [Vitamin D] 1,000 unit PO DAILY 01/23/17 [History] Escitalopram [Lexapro] 10 mg PO DAILY 01/23/17 [History] Glucosamn/Condroitn/C/Mn/[place] [Cvs Glucosamine Chondroitin Tb] 1 tab PO DAILY 01/23/17 [History] Krill/Om-3/Dha/Epa/Phospho/Ast [Krill Oil 1,000 mg Softgel] 1,000 mg PO DAILY [History] Tamsulosin [Flomax] 0.4 mg PO DAILY 01/23/17 [History] Aspirin 81 mg PO DAILY #30 tab.chew 01/26/17 [Rx] Escitalopram [Lexapro] 10 mg PO DAILY #30 tablet 01/26/17 [Rx] Folic Acid 1 mg PO DAILY #30 tablet 01/26/17 [Rx] Lisinopril [Zestril] 10 mg PO DAILY #30 tablet 01/26/17 [Rx] Omeprazole [PriLOSEC] 20 mg PO BIDAC #60 capsule. 01/26/17 [Rx] Tamsulosin [Flomax] 0.4 mg PO DAILY #30 capsule 01/26/17 [Rx] Thiamine (B-1) [Vitamin B-1] 100 mg PO DAILY #30 tablet 01/26/17 [Rx] Allergies No Known Allergies Allergy (Verified 04/23/15 07:13) Provider Date of admission: 01/24/17 13:26 Primary care physician: PCP NO Discharging clinician: Kelsey Welsh Assessment and Plan - Patient/Caregiver Discharge Instructions Activity: resume usual activities as tolerated Diet: low fat, low cholesterol - Follow up Plan Follow up with: [facility] [Outside] - 02/02/17 10:00 am (The above appointment is with Zita Oliveira, PhD.) [facility] [Outside] - 02/22/17 2:00 pm (The above appointment is with Dr. Guevara. This is Dr. Guevara's first available appointment. Office staff will call you if a cancellation in the schedule arises that would allow you to be seen sooner.) Functional capacity at discharge: independent ambulation Overall status at discharge: Stable Disposition: Home, Self-Care Hospital Course Hospital course: Mr. Pratt is a 71 year old male who was admitted from a medical floor after he fell at home. His blood alcohol level at the time of presentation was close to 0.3. His primary attending assessed his mood when Guanako was sober. Guanako endorsed a suicide plan of using a hairdryer in the bathtub. Upon admission to psychiatry Guanako reported his comments were misinterpreted. He indicated he has always had the plan of using a hairspring assembler but that he had no intent and has not had intent any time in the recent past. He was monitored for alcohol withdrawal while on the unit. He was prescribed Librium but this medication was weaned with no difficulties. Social work spoke with his who indicated she was fine with Guanako returning home. She wanted him to stop drinking but did not feel he was a threat to himself, her, or anyone else. She was given resources to help support him and to help her deal with his drinking. Guanako indicated he wanted to stop drinking but when it came to treatment he was ambivalent. He had an appointment coming up with both a counselor and a psychiatrist. He plans to address his drinking with them. Educated him on medications that might be useful for cravings and to help him stop should he make that decision. He was consistent in denying any suicidal or homicidal thoughts or intent throughout his stay and at the time of discharge. - Time Spent with Patient Total time spent providing and/or coordinating discharge services: Quality - Multiple Antipsychotics Patient discharged on 2 or more antipsychotic medications: No Procedures - Procedures Procedures: Medication Management, Crisis Stabilization, Supportive Therapy, Group Therapy Mental Status Exam - Mental Status Exam Patient orientation: Yes Person, Yes Time, Yes Place Level of alertness: Alert Patient appearance: Appropriate, Well Groomed Behavior: calm, cooperative Psychomotor activity: Normal Eye contact: Maintains Eye Contact Mood description: Depressed Affect description: full range Speech pattern: Normal rate, Normal rhythm, Normal tone Speech Volume: Normal Thought process: Linear, Goal Oriented Thought Content: No Suicidal ideation, No Homicidal ideation, No Overt delusions Perceptual Disturbances: No Auditory hallucinations, No Visual hallucinations Judgment: Limited Insight: Partial
== END 2017-01-26 14:10 | disposition home or self-care (01) | DRG 885 ==
LOC: 1ANU 13:26
PROVIDERS: ADMIT Psychiatry & Neurology Psychiatry; ATTEND Psychiatry & Neurology Psychiatry

== ENCOUNTER 2018-03-16 22:37 | Observation (INO) ==
--- NOTE | 2018-03-16 22:45 | Emergency Department Note ---
Disposition Clinical Impression: ACS (acute coronary syndrome), Suicidal ideation Alcohol intoxication Qualifiers: Complication of substance-induced condition: uncomplicated Qualified Code(s): F10.920 - Alcohol use, unspecified with intoxication, uncomplicated Disposition: Admitted As Inpatient Condition: Undetermined Referrals: NONE,PCP [Primary Care Provider] - Forms: ED Satisfaction Letter Time of Disposition: 00:23 Chest Pain HPI - General Chief Complaint: ED Chest Pain Stated Complaint: chest pain Time Seen by Provider: 03/16/18 22:38 Source: patient, EMS Mode of arrival: EMS Limitations: altered mental status (intoxicated) Vital Signs Reviewed: Yes Nursing Notes Reviewed: Yes - History of Present Illness HPI Narrative: 72-year-old intoxicated male with history of hypertension, hyperlipidemia, diabetes, arrives to the emergency department complaining of sided chest pain is nonradiating with associated dyspnea. The patient states he is never had any previous DC and is unsure about any cardiac testing. The patient states he drank roughly 1 pint of vodka today and states he drank too much. In addition the patient and notes that he is suicidal. The patient denies any plan at this time but is very intoxicated on examination. He is resting comfortably in the room. - Related Data Home Medications Medication Instructions Recorded Confirmed Calcium Carbonate/Vitamin D3 2 cap PO QPM 04/23/15 01/23/17 [Calcium 600 + Vitamin D Sftgl] Cinnamon Bark [Cinnamon] 1,000 mg PO DAILY 04/23/15 01/23/17 Cyanocobalamin (Vitamin B-12) 1,000 mcg PO DAILY 04/23/15 01/23/17 [Vitamin B12] Docusate [Colace] 100 mg PO TID PRN 04/23/15 01/23/17 Fexofenadine HCl 180 mg PO HS 04/23/15 01/23/17 Fluticasone Propionate 1 spray NS BID 04/23/15 01/23/17 Saw [place] Fruit [Saw [place]] 900 mg PO BID 04/23/15 01/23/17 Vitamin B Complex 1 tab PO DAILY 04/23/15 01/23/17 Cholecalciferol (D-3) [Vitamin D] 1,000 unit PO DAILY 01/23/17 01/23/17 Escitalopram [Lexapro] 10 mg PO DAILY 01/23/17 01/23/17 Glucosamn/Condroitn/C/Mn/[place] 1 tab PO DAILY 01/23/17 01/23/17 [[facility]vs Glucosamine Chondroitin Tb] Krill/Om-3/Dha/Epa/Phospho/Ast 1,000 mg PO DAILY 01/23/17 01/23/17 [Krill Oil 1,000 mg Softgel] Tamsulosin [Flomax] 0.4 mg PO DAILY 01/23/17 01/23/17 Previous Rx's Medication Instructions Recorded Aspirin Enteric Coated [Aspirin EC] 81 mg PO DAILY tablet. 04/24/15 Lisinopril [Prinivil] 10 mg PO 14 #14 tablet 04/24/15 Aspirin 81 mg PO DAILY #30 tab.chew 01/26/17 Escitalopram [Lexapro] 10 mg PO DAILY #30 tablet 01/26/17 Folic Acid 1 mg PO DAILY #30 tablet 01/26/17 Lisinopril [Zestril] 10 mg PO DAILY #30 tablet 01/26/17 Omeprazole [PriLOSEC] 20 mg PO BIDAC #60 capsule. 01/26/17 Tamsulosin [Flomax] 0.4 mg PO DAILY #30 capsule 01/26/17 Thiamine (B-1) [Vitamin B-1] 100 mg PO DAILY #30 tablet 01/26/17 Allergies Allergy/AdvReac Type Severity Reaction Status Date / Time No Known Allergies Allergy Verified 04/23/15 07:13 All systems ED: reviewed and negative except as stated. Constitutional: Denies: fever, chills, weakness ENT ED: Denies: congestion Cardiovascular: Reports: chest pain. Denies: palpitations, dyspnea on exertion , edema, syncope Respiratory: Reports: dyspnea. Denies: cough, sputum production Gastrointestinal: Denies: abdominal pain, nausea, vomiting, diarrhea Genitourinary: Denies: urgency, dysuria Musculoskeletal: Denies: back pain Neurological: Denies: headache, weakness, numbness Psychiatric: Reports: depression, suicidal thoughts. Denies: homicidal thoughts , auditory hallucinations, visual hallucinations Chest Pain PMH - Past Medical History Medical history: Reports: diabetes, hyperlipidemia, hypertension, other Surgical history: Reports: cataract, other Psychiatric history: Reports: anxiety, depression, previous psychiatric hospitalization Prior Cardiac Testing/Procedures: Stress Test - Social History Smoking Status: Never smoker Alcohol use: Reports: heavy, recent Drug use: Reports: none Physical Exam - General Limitations: altered mental status (Intoxicated) General appearance: alert, in no apparent distress, appears intoxicated - Head Head exam: atraumatic, normocephalic, normal inspection - Eye Eye exam: Present: normal appearance, PERRL, EOMI - ENT ENT exam: normal exam, normal oropharynx, mucous membranes moist - Neck Neck exam: Present: normal inspection, full ROM, trachea midline - Chest Chest inspection: Present: normal inspection, symmetric chest wall rise - Respiratory Respiratory exam: Present: normal lung sounds bilaterally - Cardiovascular Cardiovascular exam: Present: regular rate, normal rhythm, normal heart sounds - Abdominal Exam Abdominal exam: Present: Non-Tender - Extremities Exam Extremities exam: Present: full ROM, other (Abrasions to left knee). Absent: tenderness, pedal edema - Neurological Exam Neurological exam: Present: alert, oriented X3 - Skin Skin exam: Present: warm, dry, intact, normal color Course Vital Signs Temperature 97.4 F L 03/16/18 22:42 Pulse Rate 67 03/16/18 22:42 Respiratory Rate 18 03/16/18 22:42 Blood Pressure 133/82 03/16/18 22:42 O2 Sat by Pulse Oximetry 96 03/16/18 22:42 Temperature 97.4 F L 03/16/18 22:42 Pulse Rate 67 03/16/18 22:42 Respiratory Rate 18 03/16/18 22:42 Blood Pressure 133/82 03/16/18 22:42 O2 Sat by Pulse Oximetry 96 03/16/18 22:42 Oxygen Delivery Oxygen Delivery Room Air Chest Pain - MDM Narrative Medical decision making narrative: Patient's workup in the emergency department demonstrates no acute process with the exception of his alcohol intoxication. The patient remains suicidal at this time. The patient's alcohol level was elevated at 324. The patient currently is pink slipped and has a sitter. We will admit the patient to the hospital for ACS rule out in addition the patient will need to see psychiatry once admitted. Patient's family made aware and agrees to plan. Accepted by Dr. Elmore. - Lab Data Lab results reviewed: Yes I reviewed the patient's lab results. Result diagrams: 03/16/18 22:41 03/16/18 22:41 Lab Results 03/16/18 03/16/18 03/16/18 Range/Units 22:41 22:41 23:00 WBC 6.4 (4.3-11.1) K/mcL RBC 4.66 (4.19-5.50) M/mcL Hgb 15.8 (12.9-16.9) g/dL Hct 44.8 (37.5-50.1) % MCV 96.1 (83.0-100.0) fL MCH 33.9 H (28.0-33.3) pg MCHC 35.3 (31.6-35.5) g/dL RDW 13.2 (11.5-14.5) % Plt Count 198 (140-400) K/mcL MPV 8.9 L (9.4-12.4) fL Immature Gran % 0.5 (0-4) % Seg Neutrophils % 56.6 % Lymphocytes % 30.9 % Monocytes % 8.6 % Eosinophils % 2.8 % Basophils % 0.6 % Neutrophils # 3.6 (1.6-8.9) K/mcL Lymphocytes # 2.0 (0.6-4.6) K/mcL Monocytes # 0.6 (0.0-1.3) K/mcL Eosinophils # 0.2 (0.0-0.6) K/mcL Basophils # 0.0 (0.0-0.2) K/mcL Sodium 131 L (136-145) mEq/L Potassium 3.8 (3.5-5.1) mEq/L Chloride 96 L (98-107) mEq/L Carbon Dioxide 23 (23-29) mEq/L BUN 6 L (8-23) mg/dL Creatinine 0.91 (0.70-1.30) mg/dL Est GFR ( Amer) > 60 (> 60) Est GFR (Non-Af Amer) > 60 (> 60) BUN/Creatinine Ratio 7 (6-26) Glucose 133 H (70-105) mg/dL Calculated Osmolality 272 L (280-300) Calcium 9.0 (8.6-10.3) mg/dL Total Bilirubin 0.4 (0.3-1.0) mg/dL AST 57 H (13-39) Units/L ALT 58 H (7-52) Units/L Alkaline Phosphatase 31 L (34-104) Units/L Troponin I < 0.03 (< 0.04) ng/mL Serum Total Protein 7.5 (6.4-8.9) g/dL Albumin 4.4 (3.5-5.7) g/dL Globulin 3.1 (2.4-3.5) g/dL Albumin/Globulin Ratio 1.4 (1.1-2.2) Urine Color Yellow (Yellow) Urine Clarity Clear (Clear) Urine pH 7.0 (5.0-8.0) pH Units Ur Specific [place] 1.011 (1.010-1.025) Urine Protein Negative (Neg-Trace) mg/dL Urine Glucose (UA) Normal (Normal) mg/dL Urine Ketones Negative (Negative) mg/dL Urine Blood Negative (Negative) Urine Nitrite Negative (Negative) Urine Bilirubin Negative (Negative) Urine Urobilinogen Normal (Normal) mg/dL Ur Leukocyte Esterase Negative (Negative) Ur Culture Indicated? NO (NO) Salicylates < 2.5 L (15.0-30.0) mg/dL Urine Opiates Screen (Cafpij=903) ng/mL Acetaminophen < 10 L (10-20) mcg/mL Ur Barbiturates Screen (Awqiol=595) ng/mL Ur Phencyclidine Scrn (Cutoff=25) ng/mL Ur Amphetamines Screen (Qybnpo=1182) ng/mL U Benzodiazepines Scrn (Xjywuc=301) ng/mL Urine Cocaine Screen (Cutoff= 300) ng/mL U Marijuana (THC) Screen (Cutoff = 50) ng/mL Ur Drug Screen Interp Ethyl Alcohol 324 H (Less than 10) mg/dL 03/16/18 Range/Units 23:00 WBC (4.3-11.1) K/mcL RBC (4.19-5.50) M/mcL Hgb (12.9-16.9) g/dL Hct (37.5-50.1) % MCV (83.0-100.0) fL MCH (28.0-33.3) pg MCHC (31.6-35.5) g/dL RDW (11.5-14.5) % Plt Count (140-400) K/mcL MPV (9.4-12.4) fL Immature Gran % (0-4) % Seg Neutrophils % % Lymphocytes % % Monocytes % % Eosinophils % % Basophils % % Neutrophils # (1.6-8.9) K/mcL Lymphocytes # (0.6-4.6) K/mcL Monocytes # (0.0-1.3) K/mcL Eosinophils # (0.0-0.6) K/mcL Basophils # (0.0-0.2) K/mcL Sodium (136-145) mEq/L Potassium (3.5-5.1) mEq/L Chloride (98-107) mEq/L Carbon Dioxide (23-29) mEq/L BUN (8-23) mg/dL Creatinine (0.70-1.30) mg/dL Est GFR ( Amer) (> 60) Est GFR (Non-Af Amer) (> 60) BUN/Creatinine Ratio (6-26) Glucose (70-105) mg/dL Calculated Osmolality (280-300) Calcium (8.6-10.3) mg/dL Total Bilirubin (0.3-1.0) mg/dL AST (13-39) Units/L ALT (7-52) Units/L Alkaline Phosphatase (34-104) Units/L Troponin I (< 0.04) ng/mL Serum Total Protein (6.4-8.9) g/dL Albumin (3.5-5.7) g/dL Globulin (2.4-3.5) g/dL Albumin/Globulin Ratio (1.1-2.2) Urine Color (Yellow) Urine Clarity (Clear) Urine pH (5.0-8.0) pH Units Ur Specific [place] (1.010-1.025) Urine Protein (Neg-Trace) mg/dL Urine Glucose (UA) (Normal) mg/dL Urine Ketones (Negative) mg/dL Urine Blood (Negative) Urine Nitrite (Negative) Urine Bilirubin (Negative) Urine Urobilinogen (Normal) mg/dL Ur Leukocyte Esterase (Negative) Ur Culture Indicated? (NO) Salicylates (15.0-30.0) mg/dL Urine Opiates Screen Negative (Spoqty=558) ng/mL Acetaminophen (10-20) mcg/mL Ur Barbiturates Screen Negative (Nhjvax=503) ng/mL Ur Phencyclidine Scrn Negative (Cutoff=25) ng/mL Ur Amphetamines Screen Negative (Ynafij=7143) ng/mL U Benzodiazepines Scrn Negative (Fmebgp=846) ng/mL Urine Cocaine Screen Negative (Cutoff= 300) ng/mL U Marijuana (THC) Screen Negative (Cutoff = 50) ng/mL Ur Drug Screen Interp See Below Ethyl Alcohol (Less than 10) mg/dL - Radiology Data Radiology results reviewed: Yes I reviewed the patient's radiology results. Chest X-Ray 03/16/18 22:41 IMPRESSION: Low lung volume examination with vascular crowding and streaky opacities at the bases that probably represent atelectasis. Otherwise no definite acute process. D/ / 03/16/2018 23:32:17 Feilciano Llanos MD / [facility] Interpreting Provider: Feliciano Llanos MD - EKG Data EKG attestation: Yes I reviewed and interpreted this EKG. EKG results narrative: Heart rate 61 beats for minute. Normal sinus rhythm. No ST elevation or ST depression noted. No acute changes noted.
--- NOTE | 2018-03-16 22:48 | Emergency Department Note ---
Disposition Clinical Impression: ACS (acute coronary syndrome) Disposition: Admitted As Inpatient Forms: ED Satisfaction Letter General Adult HPI - General Chief complaint: ED Chest Pain Stated complaint: chest pain Time Seen by Provider: 03/16/18 22:38 Source: patient, EMS Mode of arrival: EMS Limitations: altered mental status (Intoxicated) - Related Data Home Medications Medication Instructions Recorded Confirmed Calcium Carbonate/Vitamin D3 2 cap PO QPM 04/23/15 01/23/17 [Calcium 600 + Vitamin D Sftgl] Cinnamon Bark [Cinnamon] 1,000 mg PO DAILY 04/23/15 01/23/17 Cyanocobalamin (Vitamin B-12) 1,000 mcg PO DAILY 04/23/15 01/23/17 [Vitamin B12] Docusate [Colace] 100 mg PO TID PRN 04/23/15 01/23/17 Fexofenadine HCl 180 mg PO HS 04/23/15 01/23/17 Fluticasone Propionate 1 spray NS BID 04/23/15 01/23/17 Saw [place] Fruit [Saw [place]] 900 mg PO BID 04/23/15 01/23/17 Vitamin B Complex 1 tab PO DAILY 04/23/15 01/23/17 Cholecalciferol (D-3) [Vitamin D] 1,000 unit PO DAILY 01/23/17 01/23/17 Escitalopram [Lexapro] 10 mg PO DAILY 01/23/17 01/23/17 Glucosamn/Condroitn/C/Mn/[place] 1 tab PO DAILY 01/23/17 01/23/17 [[facility]vs Glucosamine Chondroitin Tb] Krill/Om-3/Dha/Epa/Phospho/Ast 1,000 mg PO DAILY 01/23/17 01/23/17 [Krill Oil 1,000 mg Softgel] Tamsulosin [Flomax] 0.4 mg PO DAILY 01/23/17 01/23/17 Previous Rx's Medication Instructions Recorded Aspirin Enteric Coated [Aspirin EC] 81 mg PO DAILY tablet. 04/24/15 Lisinopril [Prinivil] 10 mg PO 14 #14 tablet 04/24/15 Aspirin 81 mg PO DAILY #30 tab.chew 01/26/17 Escitalopram [Lexapro] 10 mg PO DAILY #30 tablet 01/26/17 Folic Acid 1 mg PO DAILY #30 tablet 01/26/17 Lisinopril [Zestril] 10 mg PO DAILY #30 tablet 01/26/17 Omeprazole [PriLOSEC] 20 mg PO BIDAC #60 capsule. 01/26/17 Tamsulosin [Flomax] 0.4 mg PO DAILY #30 capsule 01/26/17 Thiamine (B-1) [Vitamin B-1] 100 mg PO DAILY #30 tablet 01/26/17 Allergies Allergy/AdvReac Type Severity Reaction Status Date / Time No Known Allergies Allergy Verified 04/23/15 07:13 Constitutional: Denies: fever, chills, weakness ENT ED: Denies: congestion Cardiovascular: Reports: chest pain. Denies: palpitations, dyspnea on exertion , edema, syncope Respiratory: Reports: dyspnea. Denies: cough, sputum production Gastrointestinal: Denies: abdominal pain, nausea, vomiting, diarrhea Genitourinary: Denies: urgency, dysuria Musculoskeletal: Denies: back pain Neurological: Denies: headache, weakness, numbness Psychiatric: Reports: depression, suicidal thoughts. Denies: homicidal thoughts , auditory hallucinations, visual hallucinations Past Medical History - Past Medical History Medical history: Reports: diabetes, hyperlipidemia, hypertension, other Surgical history: Reports: cataract, other Psychiatric history: Reports: anxiety, depression, previous psychiatric hospitalization - Social History Smoking Status: Never smoker Smokeless Tobacco Status: No Alcohol use: Reports: heavy, recent Drug use: Reports: none Physical Exam - General Limitations: altered mental status (Intoxicated) General appearance: alert, in no apparent distress, appears intoxicated Course - Reevaluation(s) Reevaluation #1: Attestation note I examined this patient and my medical decision-making was reviewed with the emergency medicine resident. I agree with the documented findings, disposition and treatment plan as described except to the extent set forth below. Patient seen with emergency medicine resident Dr. Slade Siddiqui, Please see a copy of his note for details of the H&P, ED evaluation, management and disposition. I have independently evaluated the patient and confirmed appropriate portions of the history and physical exam. Briefly: 72-year-old male multiple risk factors no known pre-existing coronary artery disease by EMS from: Intoxication and suicidal ideations. His heart scores for moderate risk EKG shows sinus rhythm no acute ischemic changes patient will undergo medical screening chest x-ray and admission to the medicine service for medical clearance. Patient has been pink slipped for suicidality. Admission disposition pending. Time: 22:47
[2018-03-16 23:11] LABS: Bilirubin,Urine Negative (Negative); Blood,Urine Negative (Negative); Clarity,Urine Clear (Clear); Color,Urine Yellow (Yellow); Glucose,Urine (UA) Normal (Normal); Ketones,Urine Negative (Negative); Leukocyte Esterase,Urine Negative (Negative); Nitrite,Urine Negative (Negative); Protein,Urine Negative (Neg-Trace); Specific Gravity,Urine 1.011 (1.010-1.025); Urobilinogen,Urine Normal (Normal)
[2018-03-16 23:16] LABS: Basophils % 0.6 %; Eosinophils # 0.2 K/mcL (0.0-0.6); Eosinophils % 2.8 %; Hematocrit 44.8 % (37.5-50.1); Hemoglobin 15.8 g/dL (12.9-16.9); Immature Granulocytes % 0.5 % (0-4); Lymphocytes % 30.9 %; Mean Corpuscular HGB Conc 35.3 g/dL (31.6-35.5); Mean Corpuscular Hemoglobin 33.9 pg (28.0-33.3); Mean Corpuscular Volume 96.1 fL (83.0-100.0); Mean Platelet Volume 8.9 fL (9.4-12.4); Monocytes # 0.6 K/mcL (0.0-1.3); Monocytes % 8.6 %; Neutrophils # 3.6 K/mcL (1.6-8.9); Platelet Count 198 K/mcL (140-400); Red Blood Count 4.66 M/mcL (4.19-5.50); Red Cell Distribution Width 13.2 % (11.5-14.5); Segmented Neutrophils % 56.6 %
[2018-03-16 23:18] LABS: Amphetamine Screen,Urine Negative ng/mL (Cutoff=1000); Barbiturate Screen,Urine Negative ng/mL (Cutoff=200); Benzodiazepines Screen,Urine Negative ng/mL (Cutoff=200); Cannabinoid Screen,Urine Negative ng/mL (Cutoff = 50); Cocaine Screen,Urine Negative ng/mL (Cutoff= 300); Opiate Screen,Urine Negative ng/mL (Cutoff=300); Phencyclidine Screen,Urine Negative ng/mL (Cutoff=25)
[2018-03-16 23:39] LABS: Troponin I < 0.03 ng/mL (< 0.04)
[2018-03-16 23:40] LABS: Acetaminophen < 10 mcg/mL (10-20); Alanine Aminotransferase 58 Units/L (7-52); Albumin 4.4 g/dL (3.5-5.7); Albumin/Globulin Ratio 1.4 (1.1-2.2); Alkaline Phosphatase 31 Units/L (34-104); Aspartate Amino Transferase 57 Units/L (13-39); BUN/Creatinine Ratio 7 (6-26); Bilirubin,Total 0.4 mg/dL (0.3-1.0); Blood Urea Nitrogen 6 mg/dL (8-23); Carbon Dioxide 23 mEq/L (23-29); Chloride 96 mEq/L (98-107); Ethanol 324 mg/dL (Less than 10); Globulin 3.1 g/dL (2.4-3.5); Glucose 133 mg/dL (70-105); Osmolality,Calculated 272 (280-300); Potassium 3.8 mEq/L (3.5-5.1); Salicylate < 2.5 mg/dL (15.0-30.0); Sodium 131 mEq/L (136-145); Total Protein 7.5 g/dL (6.4-8.9); eGFR For African Americans > 60 (> 60); eGFR For Non-African Americans > 60 (> 60)
[2018-03-17] MEDS ORDERED: Aspirin 325 MG TABLET PO ONE (00:22)
[2018-03-17] MEDS ORDERED: Naloxone 0.4 MG/ML INJ IVP PRN (02:33)
[2018-03-17] MEDS ORDERED: 0.9 % Sodium Chloride 1,000 ML IVC ONE (02:40)
[2018-03-17] MEDS ORDERED: *HR* Promethazine 25 MG/ML VIAL IVP PRN (02:41)
[2018-03-17] MEDS ORDERED: *HR* LORazepam 2 MG/ML VIAL IVP PRN ×2 (02:41)
--- NOTE | 2018-03-17 03:28 | Internal Med History&Physical ---
Date of Encounter: 03/17/18 Time of Encounter: 02:30 Internal Medicine - H&P: HPI Admitted From: Home Plans for Post Hospital Care: Home History of present illness: Mr. Pratt is a 72 year old male Patient stated that e drank too much last night. Gets depressed sometimes and then he drinks alcohol. Prior to this, he had been off alcohol for 5 weeks. His alcohol level in the ER was 324. While he was drinking, he fell and hit his head. Denies losing consciousness however. His family was concerned about him and he was brought to the ER. Initially he also reported some chest pain, but denies it at this time. Typically he drinks a beer or wine at night, but this past evening he drank quite a bit of vodka, stating he thinks he drank 6-8 drinks. He denies fever, nausea, vomiting, abdominal pain, head ache and chest pain. Imaging performed from the ER shows no acute processes of the spine, head or chest. EKG was sinus rhythm, with no acute changes. He expressed some suicidal ideation, and thus was pink slipped, and admitted for observation of his chest pain, alcohol intoxication and suicidal ideation. Past Med Surg Social Fam HX - Past Medical History Medical history: diabetes, hyperlipidemia, hypertension, other Additional medical history: Anxiety, Depression, seasonal allergies Psychiatric history: anxiety, depression, previous psychiatric hospitalization - Past Surgical History Surgical History: cataract, other Additional surgical history: colon resection for diverticulitis - Social History Smoking Status: Never smoker Smokeless Tobacco Status: No Alcohol use: heavy, recent Drug use: none - Family History Mother Adopted: No Living Status: Hx Family Cardiac Disorders: Yes Hx Family Respiratory Disorders: No Hx Family Cancer: No Hx Family GI Disorders: No Hx Family Endocrine Disorder: No Hx Family Neuromuscular Disorders: No Hx Family Neurologic Disorders: No Hx Family HEENT Disorders: No Hx Family Autoimmune Disorders: No Internal Medicine - H&P: Meds Calcium Carbonate/Vitamin D3 [Calcium 600 + Vitamin D Sftgl] 2 cap PO QPM [History] Cinnamon Bark [Cinnamon] 1,000 mg PO DAILY 04/23/15 [History] Cyanocobalamin (Vitamin B-12) [Vitamin B12] 1,000 mcg PO DAILY 04/23/15 [History ] Docusate [Colace] 100 mg PO TID PRN 04/23/15 [History] Fexofenadine HCl 180 mg PO HS 04/23/15 [History] Fluticasone Propionate 1 spray NS BID 04/23/15 [History] Saw [place] Fruit [Saw [place]] 900 mg PO DAILY 04/23/15 [History] Vitamin B Complex 1 tab PO DAILY 04/23/15 [History] Aspirin Enteric Coated [Aspirin EC] 81 mg PO DAILY tablet. 04/24/15 [Rx] Lisinopril [Prinivil] 10 mg PO 14 #14 tablet 04/24/15 [Rx] Cholecalciferol (D-3) [Vitamin D] 1,000 unit PO DAILY 01/23/17 [History] Escitalopram [Lexapro] 10 mg PO DAILY 01/23/17 [History] Glucosamn/Cond[place]n/C/Mn/[place] [[facility]vs Glucosamine Chondroitin Tb] 1 tab PO DAILY 01/23/17 [History] Krill/Om-3/Dha/Epa/Phospho/Ast [Krill Oil 1,000 mg Softgel] 1,000 mg PO DAILY [History] Tamsulosin [Flomax] 0.4 mg PO DAILY 01/23/17 [History] Aspirin 81 mg PO DAILY #30 tab.chew 01/26/17 [Rx] Lisinopril [Zestril] 10 mg PO DAILY #30 tablet 01/26/17 [Rx] Tamsulosin [Flomax] 0.4 mg PO DAILY #30 capsule 01/26/17 [Rx] Thiamine (B-1) [Vitamin B-1] 100 mg PO DAILY #30 tablet 01/26/17 [Rx] Escitalopram [Lexapro] 5 mg PO DAILY 03/17/18 [History] 3 Allergy/AdvReac Type Severity Reaction Status Date / Time No Known Allergies Allergy Verified 04/23/15 07:13 All Systems PM: A 10-system review of systems was performed and is negative for pertinent findings except as documented above in the HPI. - Constitutional Vitals: Temp Pulse Resp BP Pulse Ox 97.4 F L 67 18 131/76 96 03/16/18 22:42 03/16/18 22:42 03/17/18 01:06 03/17/18 01:06 03/16/18 22:42 General appearance: Present: mild distress, A&O X 3, pleasant - Head Head exam: Present: normal inspection - Eye Eye exam: Present: EOMI, normal appearance - Respiratory Respiratory exam: Present: CTAB. Absent: respiratory distress, wheezes - Cardiovascular Cardiovascular exam: Present: RRR. Absent: diastolic murmur, systolic murmur - GI/Abdominal GI/Abdominal exam: Absent: guarding, mass, tenderness - Extremities Exam Extremities exam: Present: full ROM, warm, radial pulses palpable and symmetrical. Absent: calf tenderness, tenderness - Neurological Exam Neurological exam: Present: strengths equal and symetr throughout. Absent: motor sensory deficit, no focal deficits, facial droop, speech deficit - Psychiatric Psychiatric exam: Present: depressed, flat affect - Skin Skin exam: Present: dry, normal color, warm Internal Med - H&P Results - Labs CBC & Chem 7: 03/17/18 04:47 03/17/18 04:47 - Assessment and plan (1) Alcohol intoxication Current Visit: Yes Status: Acute Assessment and plan: Patient drank several drinks this evening, blood alcohol level is 324. Has a history of alcohol withdrawals several years ago. Had not been drinking the past 5 weeks. [facility] protocol Qualifiers: Complication of substance-induced condition: uncomplicated Qualified Code(s ): F10.920 - Alcohol use, unspecified with intoxication, uncomplicated (2) Chest pain Current Visit: No Status: Resolved Assessment and plan: Patient denies currently, EKG did not show ST changes, and troponins negative thus far. Unclear if patient had true chest pain, or if it was related to his intoxicated state. Continue to monitor. Qualifiers: Qualified Code(s): R07.9 - Chest pain, unspecified (3) Suicidal ideation Current Visit: Yes Status: Acute Assessment and plan: Patient pink-slipped, psych consult pending. Has a history of depression. (4) Major depression, recurrent, chronic Current Visit: No Status: Chronic Assessment and plan: History of depression, patient takes lexapro at home. Follow up psych recommendations. (5) Hypertension Current Visit: Yes Status: Acute Assessment and plan: Patient takes lisinopril at home. Monitor blood pressures. Qualifiers: Hypertension type: essential hypertension Qualified Code(s): I10 - Essential (primary) hypertension - Time Spent With Patient Total time spent is greater than 50% in coordination of care (as documented) at patient's floor/unit and/or counseling patient: Greater than 35 minutes
[2018-03-17 05:07] LABS: Hematocrit 45.3 % (37.5-50.1); Hemoglobin 15.9 g/dL (12.9-16.9); Mean Corpuscular HGB Conc 35.1 g/dL (31.6-35.5); Mean Corpuscular Hemoglobin 33.1 pg (28.0-33.3); Mean Corpuscular Volume 94.4 fL (83.0-100.0); Platelet Count 184 K/mcL (140-400); Red Cell Distribution Width 13.3 % (11.5-14.5)
[2018-03-17 05:24] LABS: BUN/Creatinine Ratio 8 (6-26); Blood Urea Nitrogen 6 mg/dL (8-23); Calcium 8.8 mg/dL (8.6-10.3); Carbon Dioxide 24 mEq/L (23-29); Chloride 98 mEq/L (98-107); Glucose 119 mg/dL (70-105); Osmolality,Calculated 275 (280-300); Potassium 4.1 mEq/L (3.5-5.1); Sodium 133 mEq/L (136-145); eGFR For African Americans > 60 (> 60); eGFR For Non-African Americans > 60 (> 60)
--- NOTE | 2018-03-17 08:56 | Consult Note ---
Date of Encounter: 03/17/18 Time of Encounter: 08:51 Assessment & Recommendation (1) Major depression, recurrent, chronic Current visit: No Status: Chronic Assessment & Recommendation: SI with plan but no intent. Recent heavy drinking. Sees a psychiatrist but depression not currently controlled. Recommend inpatient psych admission once medically cleared. History of Present Illness Requesting Physician: Gwyn Elmore MD Reason for consult: SI History of present illness: Mr. Pratt is a 72 year old male who presented to [facility] with chest pain, acute intoxication, and SI. Cardiac work-up has been negative thus far. Client reports he still has SI with plan but no intent. Has been depressed since 2000 when his mother had a stroke. Three inpatient admissions to . Currently sees a psychiatrist on an outpatient basis and takes Lexapro and a newer antidepressant. Has been drinking alcohol since high school. Periods of sobriety but recently "fell off the wagon." States depression fuels his drinking. Has some physical health problems including hemochromatosis and hyponatremia that limit his ability to exercise. Retired sooner than he wanted. Depression not currently under control. Not actively suicidal but drinking certainly puts him at risk. States he wants a couple of days in the hospital to feel better. CC: Gwyn Elmore MD Past Med Surg Social Fam HX - Past Medical History Medical history: diabetes, hyperlipidemia, hypertension, other - Past Psychiatric History Psychiatric history: Reports: depression, previous psychiatric hospitalization Family psychiatric history: Unknown Family History of Suicide: Unknown - Past Surgical History Surgical History: cataract, other - Social History Smoking Status: Never smoker Smokeless Tobacco Status: No Alcohol use: heavy, recent Drug use: none - Family History Mother Adopted: No Living Status: Hx Family Cardiac Disorders: Yes Hx Family Respiratory Disorders: No Hx Family Cancer: No Hx Family GI Disorders: No Hx Family Endocrine Disorder: No Hx Family Neuromuscular Disorders: No Hx Family Neurologic Disorders: No Hx Family HEENT Disorders: No Hx Family Autoimmune Disorders: No Medications & Allergies Calcium Carbonate/Vitamin D3 [Calcium 600 + Vitamin D Sftgl] 2 cap PO QPM [History] Cinnamon Bark [Cinnamon] 1,000 mg PO DAILY 04/23/15 [History] Cyanocobalamin (Vitamin B-12) [Vitamin B12] 1,000 mcg PO DAILY 04/23/15 [History ] Docusate [Colace] 100 mg PO TID PRN 04/23/15 [History] Fexofenadine HCl 180 mg PO HS 04/23/15 [History] Fluticasone Propionate 1 spray NS BID 04/23/15 [History] [place] Fruit [[place]] 900 mg PO DAILY 04/23/15 [History] Vitamin B Complex 1 tab PO DAILY 04/23/15 [History] Aspirin Enteric Coated [Aspirin EC] 81 mg PO DAILY tablet. 04/24/15 [Rx] Lisinopril [Prinivil] 10 mg PO 14 #14 tablet 04/24/15 [Rx] Cholecalciferol (D-3) [Vitamin D] 1,000 unit PO DAILY 01/23/17 [History] Escitalopram [Lexapro] 10 mg PO DAILY 01/23/17 [History] Glucosamn/Condroitn/C/Mn/Coward [Cvs Glucosamine Chondroitin Tb] 1 tab PO DAILY 01/23/17 [History] Krill/Om-3/Dha/Epa/Phospho/Ast [Krill Oil 1,000 mg Softgel] 1,000 mg PO DAILY [History] Tamsulosin [Flomax] 0.4 mg PO DAILY 01/23/17 [History] Aspirin 81 mg PO DAILY #30 tab.chew 01/26/17 [Rx] Lisinopril [Zestril] 10 mg PO DAILY #30 tablet 01/26/17 [Rx] Tamsulosin [Flomax] 0.4 mg PO DAILY #30 capsule 01/26/17 [Rx] Thiamine (B-1) [Vitamin B-1] 100 mg PO DAILY #30 tablet 01/26/17 [Rx] Escitalopram [Lexapro] 5 mg PO DAILY 03/17/18 [History] 3 Allergy/AdvReac Type Severity Reaction Status Date / Time No Known Allergies Allergy Verified 04/23/15 07:13 Review of Systems Constitutional: Reports: weakness Eyes: Denies: eye pain, vision change Ears, Nose, Throat: Denies: ear pain, throat pain, dental pain, hearing loss, congestion Cardiovascular: Denies: chest pain, palpitations, dyspnea on exertion Respiratory: Denies: cough, dyspnea, wheezes Gastrointestinal: Denies: abdominal pain, nausea, vomiting, diarrhea, constipation Genitourinary male: Denies: urgency, dysuria, frequency, genital lesions Musculoskeletal: Reports: back pain Integumentary: Denies: rash, lesions, pruritus Neurological: Denies: headache, weakness, numbness, memory loss Psychiatric: Reports: depression, suicidal ideation Endocrine: Denies: fatigue, heat or cold intolerance Hematologic/Lymphatic: Reports: other Allergic/Immunologic: Denies: urticaria, itchy eyes Psychiatry Exam - Constitutional Vitals: Temp Pulse Resp BP Pulse Ox 97.4 F L 67 18 131/76 96 03/16/18 22:42 03/16/18 22:42 03/17/18 01:06 03/17/18 01:06 03/16/18 22:42 General appearance: age & developmentally appropriate - Musculoskeletal Gait: normal Station: relaxed Strength & Tone: normal for patient - Psychiatric Patient Orientation: Yes Person, Yes Time, Yes Place Level of alertness: Alert Behavior: calm, cooperative Psychomotor activity: Normal Eye Contact: Maintains Eye Contact Mood Description: Depressed Affect description: congruent with mood Speech Volume: Normal Speech pattern: normal rate, normal rhythm, normal tone, fluent, spontaneous Language & Vocabulary: consistent with education Thought Process: Linear, Goal Oriented Thought Content: Yes Suicidal ideation, No Homicidal ideation, No Overt delusions Perceptual Disturbances: No Auditory hallucinations, No Visual hallucinations Attention Span Ability: Capable of Focused Attention Memory Description: Grossly Intact Patient Reliability: Reliable Historian Fund of knowledge: Yes abstraction ability, Yes aware of current events Intelligence Estimate: Average Judgment: Limited Insight: Partial Results - Labs Labs: Laboratory Last Values WBC 6.1 K/mcL (4.3-11.1) 03/17/18 04:47 RBC 4.80 M/mcL (4.19-5.50) 03/17/18 04:47 Hgb 15.9 g/dL (12.9-16.9) 03/17/18 04:47 Hct 45.3 % (37.5-50.1) 03/17/18 04:47 MCV 94.4 fL (83.0-100.0) 03/17/18 04:47 MCH 33.1 pg (28.0-33.3) 03/17/18 04:47 MCHC 35.1 g/dL (31.6-35.5) 03/17/18 04:47 RDW 13.3 % (11.5-14.5) 03/17/18 04:47 Plt Count 184 K/mcL (140-400) 03/17/18 04:47 MPV 9.0 fL (9.4-12.4) L 03/17/18 04:47 Immature Gran % 0.5 % (0-4) 03/16/18 22:41 Seg Neutrophils % 56.6 % 03/16/18 22:41 Lymphocytes % 30.9 % 03/16/18 22:41 Monocytes % 8.6 % 03/16/18 22:41 Eosinophils % 2.8 % 03/16/18 22:41 Basophils % 0.6 % 03/16/18 22:41 Neutrophils # 3.6 K/mcL (1.6-8.9) 03/16/18 22:41 Lymphocytes # 2.0 K/mcL (0.6-4.6) 03/16/18 22:41 Monocytes # 0.6 K/mcL (0.0-1.3) 03/16/18 22:41 Eosinophils # 0.2 K/mcL (0.0-0.6) 03/16/18 22:41 Basophils # 0.0 K/mcL (0.0-0.2) 03/16/18 22:41 Sodium 133 mEq/L (136-145) L 03/17/18 04:47 Potassium 4.1 mEq/L (3.5-5.1) 03/17/18 04:47 Chloride 98 mEq/L (98-107) 03/17/18 04:47 Carbon Dioxide 24 mEq/L (23-29) 03/17/18 04:47 BUN 6 mg/dL (8-23) L 03/17/18 04:47 Creatinine 0.79 mg/dL (0.70-1.30) 03/17/18 04:47 Est GFR ( Amer) > 60 (> 60) 03/17/18 04:47 Est GFR (Non-Af Amer) > 60 (> 60) 03/17/18 04:47 BUN/Creatinine Ratio 8 (6-26) 03/17/18 04:47 Glucose 119 mg/dL (70-105) H 03/17/18 04:47 Calculated Osmolality 275 (280-300) L 03/17/18 04:47 Calcium 8.8 mg/dL (8.6-10.3) 03/17/18 04:47 Total Bilirubin 0.4 mg/dL (0.3-1.0) 03/16/18 22:41 AST 57 Units/L (13-39) H 03/16/18 22:41 ALT 58 Units/L (7-52) H 03/16/18 22:41 Alkaline Phosphatase 31 Units/L (34-104) L 03/16/18 22:41 Troponin I < 0.03 ng/mL (< 0.04) 03/17/18 04:47 Serum Total Protein 7.5 g/dL (6.4-8.9) 03/16/18 22:41 Albumin 4.4 g/dL (3.5-5.7) 03/16/18 22:41 Globulin 3.1 g/dL (2.4-3.5) 03/16/18 22:41 Albumin/Globulin Ratio 1.4 (1.1-2.2) 03/16/18 22:41 Urine Color Yellow (Yellow) 03/16/18 23:00 Urine Clarity Clear (Clear) 03/16/18 23:00 Urine pH 7.0 pH Units (5.0-8.0) 03/16/18 23:00 Ur Specific [place] 1.011 (1.010-1.025) 03/16/18 23:00 Urine Protein Negative mg/dL (Neg-Trace) 03/16/18 23:00 Urine Glucose (UA) Normal mg/dL (Normal) 03/16/18 23:00 Urine Ketones Negative mg/dL (Negative) 03/16/18 23:00 Urine Blood Negative (Negative) 03/16/18 23:00 Urine Nitrite Negative (Negative) 03/16/18 23:00 Urine Bilirubin Negative (Negative) 03/16/18 23:00 Urine Urobilinogen Normal mg/dL (Normal) 03/16/18 23:00 Ur Leukocyte Esterase Negative (Negative) 03/16/18 23:00 Ur Culture Indicated? NO (NO) 03/16/18 23:00 Salicylates < 2.5 mg/dL (15.0-30.0) L 03/16/18 22:41 Urine Opiates Screen Negative ng/mL (Qdagzs=787) 06/28/18 23:00 Acetaminophen < 10 mcg/mL (10-20) L 03/16/18 22:41 Ur Barbiturates Screen Negative ng/mL (Lrudeb=842) 03/16/18 23:00 Ur Phencyclidine Scrn Negative ng/mL (Cutoff=25) 03/16/18 23:00 Ur Amphetamines Screen Negative ng/mL (Hbbuxy=9979) 03/16/18 23:00 U Benzodiazepines Scrn Negative ng/mL (Agfujz=234) 03/16/18 23:00 Urine Cocaine Screen Negative ng/mL (Cutoff= 300) 03/16/18 23:00 U Marijuana (THC) Screen Negative ng/mL (Cutoff = 50) 03/16/18 23:00 Ur Drug Screen Interp See Below 03/16/18 23:00 Ethyl Alcohol 324 mg/dL (Less than 10) H 03/16/18 22:41 Consult Discharge Plan - Plan Referrals: Yung Peoples [Partnered Physician] -
[2018-03-17] MEDS: Aspirin Enteric Coated 81 MG Tablet PO SCH (09:33)
[2018-03-17] MEDS: *HR* LORazepam 2 MG/ML VIAL IVP PRN ×2 (09:47→14:05)
--- NOTE | 2018-03-17 10:29 | Internal Med Progress Note ---
Date of Encounter: 03/17/18 Time of Encounter: 10:27 - Assessment and plan (1) Chest pain Current Visit: Yes Status: Acute Assessment and plan: [id number] male with past medical history of alcohol abuse, depression/ anxiety, suicidal ideation, hypertension, and hypothyroidism presents with acute onset of chest pain and dyspnea. Patient was intoxicated upon arrival, his symptoms were considered alcohol intoxication related. Psychiatry consulted and patient actively suicidal at this time. - EKG no acute changes, troponin negative 3. Chest pain is most likely alcohol intoxication related. Patient medically stable for transfer to inpsych floor. - Psych following, appreciate input. Qualifiers: Qualified Code(s): R07.9 - Chest pain, unspecified (2) Suicidal ideation Current Visit: Yes Status: Acute Assessment and plan: Patient currently suicidal, but he denies suicidal plan. Psych consulted and recommended inpatient psych floor. We will continue sitter until patient was transferred. (3) Alcohol intoxication Current Visit: Yes Status: Acute Assessment and plan: Continue CIWA. Qualifiers: Complication of substance-induced condition: uncomplicated Qualified Code(s ): F10.920 - Alcohol use, unspecified with intoxication, uncomplicated (4) Hypertension Current Visit: No Status: Chronic Assessment and plan: Continue monitoring BP, continue home medications. Qualifiers: Hypertension type: essential hypertension Qualified Code(s): I10 - Essential (primary) hypertension (5) Anxiety Current Visit: No Status: Acute Assessment and plan: Continue home medications, psych following. (6) Depression Current Visit: Yes Status: Acute Assessment and plan: Psych following. Qualifiers: Depression Type: major depressive disorder Major depression recurrence: recurrent Active/Remission status: currently active Psychotic features: with psychotic features Qualified Code(s): F33.3 - Major depressive disorder, recurrent, severe with psychotic symptoms - Time Spent With Patient Total time spent is greater than 50% in coordination of care (as documented) at patient's floor/unit and/or counseling patient: Greater than 35 minutes - Subjective Interval history: Patient seen and examined in the room, he has no chest pain currently, but he seems very depressed and expressed suicidal ideation. - Constitutional Vitals: Temp Pulse Resp BP Pulse Ox 97.4 F L 67 18 131/76 96 03/16/18 22:42 03/16/18 22:42 03/17/18 01:06 03/17/18 01:06 03/16/18 22:42 General appearance: Present: mild distress, A&O X 3, pleasant Exam: PHYSICAL EXAMINATION: GENERAL APPEARANCE: The patient is alert, oriented and in no acute distress. HEENT: Head is normocephalic. The sinuses are nontender. Pupils are equal and reactive. The nares are patent. Oropharynx clear without lesions. NECK: Supple without lymphadenopathy. HEART: Regular rate and rhythm. LUNGS: No crackles or wheezes are heard. ABDOMEN: Soft, nontender, nondistended with good bowel sounds heard. Inguinal area is normal. EXTREMITIES: Without cyanosis, clubbing or edema. NEUROLOGICAL: Gross nonfocal. SKIN: Warm and dry without any rash. Internal Medicine: Result - Labs CBC & Chem 7: 03/17/18 04:47 03/17/18 04:47 Labs: Short CBC 03/17/18 Range/Units 04:47 WBC 6.1 (4.3-11.1) K/mcL Hgb 15.9 (12.9-16.9) g/dL Hct 45.3 (37.5-50.1) % Plt Count 184 (140-400) K/mcL [facility] 03/17/18 04:47 Sodium 133 L Potassium 4.1 Chloride 98 Carbon Dioxide 24 BUN 6 L Creatinine 0.79 Glucose 119 H Calcium 8.8 Cardiac Enzymes 03/17/18 Range/Units 04:47 Troponin I < 0.03 (< 0.04) ng/mL Consult Discharge Plan - Plan Referrals: Yung Peoples [Partnered Physician] -
[2018-03-17] MEDS: 0.9 % Sodium Chloride 1,000 ML IVC SCH (16:32)
[2018-03-17] MEDS: *HR* Heparin 5,000 UNIT/ML VIAL SQ SCH (16:32)
[2018-03-17] MEDS ORDERED: Thiamine (B-1) 100 MG, Folic Acid 1 MG, MVI, adult with vitamin K 10 ML in 0.9 % Sodi... IVPB SCH (18:00)
[2018-03-17] MEDS: Fluticasone Propionate Nasal 50 MCG/SPRAY BOTTLE NS SCH (22:39)
[2018-03-18 04:00] LABS: Basophils % 0.5 %; Eosinophils # 0.2 K/mcL (0.0-0.6); Eosinophils % 2.6 %; Hematocrit 40.7 % (37.5-50.1); Hemoglobin 14.5 g/dL (12.9-16.9); Immature Granulocytes % 0.5 % (0-4); Lymphocytes # 1.3 K/mcL (0.6-4.6); Lymphocytes % 21.6 %; Mean Corpuscular HGB Conc 35.6 g/dL (31.6-35.5); Mean Corpuscular Hemoglobin 33.2 pg (28.0-33.3); Mean Corpuscular Volume 93.1 fL (83.0-100.0); Mean Platelet Volume 9.2 fL (9.4-12.4); Monocytes # 0.6 K/mcL (0.0-1.3); Monocytes % 10.2 %; Platelet Count 175 K/mcL (140-400); Red Blood Count 4.37 M/mcL (4.19-5.50); Red Cell Distribution Width 13.2 % (11.5-14.5); Segmented Neutrophils % 64.6 %
[2018-03-18 04:15] LABS: Alanine Aminotransferase 48 Units/L (7-52); Albumin 3.7 g/dL (3.5-5.7); Albumin/Globulin Ratio 1.4 (1.1-2.2); Alkaline Phosphatase 28 Units/L (34-104); Aspartate Amino Transferase 45 Units/L (13-39); BUN/Creatinine Ratio 12 (6-26); Bilirubin,Total 0.6 mg/dL (0.3-1.0); Blood Urea Nitrogen 9 mg/dL (8-23); Calcium 9.1 mg/dL (8.6-10.3); Carbon Dioxide 22 mEq/L (23-29); Chloride 100 mEq/L (98-107); Globulin 2.6 g/dL (2.4-3.5); Glucose 141 mg/dL (70-105); Osmolality,Calculated 275 (280-300); Potassium 3.7 mEq/L (3.5-5.1); Sodium 132 mEq/L (136-145); Total Protein 6.3 g/dL (6.4-8.9); eGFR For African Americans > 60 (> 60); eGFR For Non-African Americans > 60 (> 60)
[2018-03-18] MEDS: *HR* Heparin 5,000 UNIT/ML VIAL SQ SCH (06:24)
[2018-03-18] MEDS ORDERED: Vitamin B Complex/Vit C/Vit E 1 EACH TABLET PO SCH (09:00)
[2018-03-18] MEDS ORDERED: Thiamine (B-1) 100 MG TABLET PO SCH (09:00)
[2018-03-18] MEDS ORDERED: Cholecalciferol (D-3) 1,000 UNIT TABLET PO SCH (09:00)
[2018-03-18] MEDS ORDERED: Cyanocobalamin (B-12) 1,000 MCG TABLET PO SCH (09:00)
[2018-03-18] MEDS: Aspirin Enteric Coated 81 MG Tablet PO SCH (09:46)
[2018-03-18] MEDS: 0.9 % Sodium Chloride 1,000 ML IVC SCH (09:47)
[2018-03-18] MEDS: Fluticasone Propionate Nasal 50 MCG/SPRAY BOTTLE NS SCH (09:55)
--- NOTE | 2018-03-18 10:02 | Internal Med Progress Note ---
Date of Encounter: 03/18/18 Time of Encounter: 10:00 - Assessment and plan (1) Major depression, recurrent, chronic Current Visit: No Status: Chronic Assessment and plan: Currently patient is denying any suicidal ideation, does not have a plan is comfortable with being transferred when medically stable to unit 1. Continues to state that he has chronic depression. He denies any hallucination, at this time. Continues with sitter at bedside. (2) Chest pain Current Visit: Yes Status: Acute Assessment and plan: Resolved Probable d/t excessive Alcohol use, b/p elevated this AM. sitter reported that it was after he had been up to bathroom, and had BM. Recheck of b /p down to 148/89. Review of history shows that the patient does have chronic hypertension. Currently takes Flomax and will continue to monitor vital signs. Qualifiers: Chest pain type: other chest pain Qualified Code(s): R07.89 - Other chest pain; R07.8 - Other chest pain (3) Suicidal ideation Current Visit: Yes Status: Acute Assessment and plan: Currently denies SI or plan. Wants to be moved to A1 as soon as possible d/t "feeling more comfortable over there" Kalia transfer to unit 1 A. risk for DT's are resolved, and medically stable. (4) Alcohol intoxication Current Visit: Yes Status: Acute Qualifiers: Complication of substance-induced condition: uncomplicated Qualified Code(s ): F10.920 - Alcohol use, unspecified with intoxication, uncomplicated (5) ACS (acute coronary syndrome) Current Visit: Yes Status: Acute (6) Hypertension Current Visit: No Status: Chronic Assessment and plan: per hx. continues to run elevated blood pressures currently taking Flomax 0.4 mg and lisinopril 10 mg on a daily basis. We will increase lisinopril to 20 mg daily and continue to monitor blood pressures Qualifiers: Hypertension type: essential hypertension Qualified Code(s): I10 - Essential (primary) hypertension - Time Spent With Patient Total time spent is greater than 50% in coordination of care (as documented) at patient's floor/unit and/or counseling patient: - Subjective Interval history: Patient was admitted on 03/16/18 with acute intoxication, chest pain, and suicidal ideation with a plan, without intent. Today he denies suicidal ideation he does verbalize that he is willing to go to 1 A, feels more comfortable in that environment as he has been there before. He denies chest pain at this time. - Constitutional Vitals: Temp Pulse Resp BP Pulse Ox 97.6 F 86 18 174/103 96 03/18/18 06:38 03/18/18 06:38 03/18/18 06:38 03/18/18 06:38 03/18/18 06:38 General appearance: Present: A&O X 3, pleasant, answers questions appropriately - Respiratory Respiratory exam: Present: CTAB - Cardiovascular Cardiovascular exam: Present: RRR - Neurological Exam Neurological exam: Present: CN II-XII intact, oriented X3 Additional comments: Noted patient has fine hand tremors at this time probably due to detoxification from excessive alcohol use. - Psychiatric Psychiatric exam: Present: anxious, depressed - Expanded Psychiatric Exam Focused psych exam: Present: psychomotor agitation, restlessness Internal Medicine: Result - Labs CBC & Chem 7: 03/18/18 03:36 03/18/18 03:36 Labs: Short CBC 03/18/18 Range/Units 03:36 WBC 6.2 (4.3-11.1) K/mcL Hgb 14.5 (12.9-16.9) g/dL Hct 40.7 (37.5-50.1) % Plt Count 175 (140-400) K/mcL Neutrophils # 4.0 (1.6-8.9) K/mcL BMP 03/18/18 03:36 Sodium 132 L Potassium 3.7 Chloride 100 Carbon Dioxide 22 L BUN 9 Creatinine 0.77 Glucose 141 H Calcium 9.1 Cardiac Enzymes 03/17/18 Range/Units 10:17 Troponin I < 0.03 (< 0.04) ng/mL Liver Function 03/18/18 Range/Units 03:36 Total Bilirubin 0.6 (0.3-1.0) mg/dL AST 45 H (13-39) Units/L ALT 48 (7-52) Units/L Alkaline Phosphatase 28 L (34-104) Units/L Albumin 3.7 (3.5-5.7) g/dL Consult Discharge Plan - Plan Referrals: Yung Peoples [Partnered Physician] -
--- NOTE | 2018-03-18 11:18 | Electrocardiograph Report ---
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
[2018-03-18 15:48] VITALS: BP 131/84
--- NOTE | 2018-03-18 16:53 | Discharge Summary ---
Date of Encounter: 03/18/18 Time of Encounter: 16:51 - Discharge Diagnosis (1) Suicidal ideation Priority: Primary Status: Acute Assessment and Plan: Currently denies SI or plan. Wants to be moved to A1 as soon as possible d/t "feeling more comfortable over there" Kalia transfer to unit 1 A. risk for DT's are resolved, and medically stable. (2) Major depression, recurrent, chronic Priority: Secondary Status: Chronic Assessment and Plan: Currently patient is denying any suicidal ideation, does not have a plan is comfortable with being transferred when medically stable to unit 1. Continues to state that he has chronic depression. He denies any hallucination, at this time. Continues with sitter at bedside. (3) Alcohol intoxication Priority: Secondary Status: Acute Assessment and Plan: Acute , chronic per hx Qualifiers: Complication of substance-induced condition: uncomplicated Qualified Code(s ): F10.920 - Alcohol use, unspecified with intoxication, uncomplicated (4) Chest pain Priority: Secondary Status: Acute Assessment and Plan: Resolved Probable d/t excessive Alcohol use, b/p elevated this AM. sitter reported that it was after he had been up to bathroom, and had BM. Recheck of b /p down to 148/89. Review of history shows that the patient does have chronic hypertension. Currently takes Flomax and will continue to monitor vital signs. Qualifiers: Chest pain type: other chest pain Qualified Code(s): R07.89 - Other chest pain; R07.8 - Other chest pain (5) ACS (acute coronary syndrome) Priority: Secondary Status: Acute Assessment and Plan: ruled out with normal serial Troponin <0.03 Hospital course: Mr. Pratt is a 72 year old male was admitted from Emergency department on 03/16, for suicidal ideation with a plan but no intent, was admitted for concurrent alcohol intoxication, with long hx of alcoholism, associated cc of chest pain . Past hx positive for recurrent chronic depression chronic alcohol intoxication. hypertension, hypothyroidism and anxiety. Hospital course patient requesting to be moved to 1A, as this is "where I am most comfortable". During hospitalization, Anti-depressants, anti-anxiety medications, along with home medications for hypertension were started. Serial troponin, and Ecg were completed and negative for ACS. He remained mildly hypertensive, and Lisinopril was increased during his stay to 20 mg daily. He had a positive response to antihypertensive medications and was deemed medically stable from this provider's viewpoint. He continues with verbalizations of depression and wishes discharge to unit 1A. Discharge discussed with: patient (discharge to 1 A) - Time Spent with Patient Total time spent providing and/or coordinating discharge services: Greater than 30 minutes - Discharge Medications Home Medications: Cinnamon Bark [Cinnamon] 1,000 mg PO DAILY 04/23/15 [History] Cyanocobalamin (Vitamin B-12) [Vitamin B12] 1,000 mcg PO DAILY 04/23/15 [History ] Fexofenadine HCl 180 mg PO HS 04/23/15 [History] [place] Fruit [[place]] 900 mg PO DAILY 04/23/15 [History] Vitamin B Complex 1 tab PO DAILY 04/23/15 [History] Aspirin Enteric Coated [Aspirin EC] 81 mg PO DAILY tablet. 04/24/15 [Rx] Cholecalciferol (D-3) [Vitamin D] 1,000 unit PO DAILY 01/23/17 [History] Krill/Om-3/Dha/Epa/Phospho/Ast [Krill Oil 1,000 mg Softgel] 1,000 mg PO DAILY [History] Thiamine (B-1) [Vitamin B-1] 100 mg PO DAILY #30 tablet 01/26/17 [Rx] Atorvastatin [Lipitor] 10 mg PO HS 03/17/18 [History] Buspirone HCl [Buspar] 10 mg PO TID PRN 03/17/18 [History] Calcium Carb/Vit D3/Minerals [Ra Calcium 600-Minerals Tab] 2 tab PO HS 03/17/18 [History] Escitalopram [Lexapro] 5 mg PO DAILY 03/17/18 [History] Fluticasone Propionate Nasal [Flonase] 1 spr NS BID 03/17/18 [History] Losartan [Cozaar] 25 mg PO DAILY 03/17/18 [History] Metformin HCl [Glucophage] 1,000 mg PO HS 03/17/18 [History] Turmeric Root Extract [Turmeric] 1,053 mg PO DAILY 03/17/18 [History] metFORMIN [Glucophage] 500 mg PO QAM 03/17/18 [History] traZODone [TraZODone] 50 mg PO HS 03/17/18 [History] Calcium Carbonate [Tums] 1,000 mg PO QPM tab.chew 03/18/18 [Rx] Naloxone [Narcan] 0.4 mg IVP Q2MIN PRN inj 03/18/18 [Rx] Promethazine [Phenergan] 12.5 mg IVP Q4HR PRN vial 03/18/18 [Rx] Tamsulosin [Flomax] 0.4 mg PO DAILY capsule 03/18/18 [Rx] hydrALAZINE [HydrALAZINE] 10 mg IVP Q6HR PRN vial 03/18/18 [Rx] Allergies/Adverse Reactions: 3 Allergy/AdvReac Type Severity Reaction Status Date / Time No Known Allergies Allergy Verified 03/17/18 12:57 Date of admission: 02/18/18 00:49 Primary care physician: Krissy Hines Consults: 03/17/18 02:41 Consult to [employer]er [CONS] Routine Reason for SW Consult: Drank heavily, struggles with depression. Psych to see in the morning for Suicidal ideation. 03/17/18 02:43 Consult to Psychiatry [CONS] Routine Consulting Provider: Psychiatry Heydi Reason consult: Sitter/1:1 [place] slip on chart Other reason and/or additional details: Patient expresses suicidal ideation, history of depression. [place] Slip initiated date and time: From ER Discharging clinician: Ambika Cassidy Anticipated date of discharge: 03/18/18 - Constitutional Vitals: Temp Pulse Resp BP Pulse Ox 97.9 F 86 16 131/84 93 03/18/18 15:46 03/18/18 15:46 03/18/18 15:46 03/18/18 15:46 03/18/18 15:46 General appearance: Present: A&O X 3, pleasant, answers questions appropriately - Respiratory Respiratory exam: Present: CTAB - Cardiovascular Cardiovascular exam: Present: RRR - Neurological Exam Neurological exam: Present: CN II-XII intact, oriented X3 - Psychiatric Psychiatric exam: Present: anxious, depressed (denies sucidal ideation at this time w/o a plan) - Patient Status Disposition: Transfer Psychiatric Hosp Condition: Fair Functional capacity at discharge: independent ambulation Overall status at discharge: patient is progressing back to baseline - Discharge Instructions Instructions: Anxiety (DC) Follow Up With: Yung Peoples [Partnered Physician] -
== END 2018-03-18 17:54 | disposition other institution (70) ==
LOC: EMEROO 22:37 → 3BNU 22:37
PROVIDERS: ADMIT Family Medicine; ATTEND Family Medicine

== ENCOUNTER 2018-03-18 17:55 | Inpatient (IN) ==
[2018-03-18] MEDS ORDERED: *HR* LORazepam 2 MG/ML VIAL IM PRN (18:10)
[2018-03-18] MEDS ORDERED: Haloperidol Lactate 5 MG/ML VIAL IM PRN (18:10)
[2018-03-18] MEDS ORDERED: hydrOXYzine pamoate 25 MG CAPSULE PO PRN (18:10)
[2018-03-18] MEDS ORDERED: *HR* LORazepam 1 MG TABLET PO PRN (18:10)
[2018-03-18] MEDS ORDERED: MOM Conc 10 ML UD.LIQ PO PRN (18:10)
[2018-03-18] MEDS ORDERED: Mag Hydrox/Al Hydrox/Simeth 30 ML UDC PO PRN (18:10)
[2018-03-18] MEDS: traZODone 50 MG TABLET PO PRN (21:03)
[2018-03-19] MEDS: Fluticasone Propionate Nasal 50 MCG/SPRAY BOTTLE NS SCH ×3 (02:36→21:43)
[2018-03-19] MEDS: Cyanocobalamin (B-12) 1,000 MCG TABLET PO SCH (09:07)
[2018-03-19] MEDS: Cholecalciferol (D-3) 1,000 UNIT TABLET PO SCH (09:07)
[2018-03-19] MEDS: Aspirin Enteric Coated 81 MG Tablet PO SCH (09:07)
[2018-03-19] MEDS: Thiamine (B-1) 100 MG TABLET PO SCH (09:07)
--- NOTE | 2018-03-19 11:20 | Psychiatry History & Physical ---
Date of Encounter: 03/19/18 Time of Encounter: 11:14 History of Present Illness Patient Stated Chief Complaint: SI Medicare Admission Attestation: For traditional Medicare patients the provided hospital inpatient services are reasonable and necessary and in the case of services not specified as inpatient -only under 42 CFR 419.22 (n), that they are appropriately provided as inpatient services in accordance 42 CFR 412.3. For Critical Access Hospital the patient may reasonably be expected to be discharged or transferred to a hospital within 96 hours after admission to the Critical Access Hospital. Admitted From: Home Plans for Post Hospital Care: Home History of Present Illness: Mr. Pratt is a 72 year old male who was admitted medically secondary to chest pain and possible alcohol withdrawal. Endorsed SI and transferred to psych once medically clear. Today client reports he is not doing well as is taking their cat to the vet to be put to sleep and he is worried about her and upset that he is in the hospital. Aware that he needs help but minimizes his problems. Denies intent or plan but states he has a passive wish. "I don 't mind dying because I'm not happy with the life I'm living. I am less interested in taking things into my own hands." Long history of alcoholism. Had reduced drinking significantly but last week he picked back up again. Self medicates with alcohol. Willing to try a rehab but selective about where he wants to go. Mentioned [facility] and [facility]. Has a couple of medical problems and has not adjusted well to senior living. Also feels bored. Interested in moving to [place] where he has things that can keep him more active. is supportive but he hides his drinking and depression from her. Currently takes a new antidepressant that is not available on the hospital formulary. Rather than use his home supply client is requesting to go back to Paxil. Took this medication for many years with positive results. Unsure why it was switched (possibly tachyphylaxis) but thinks he would like to go back to it again. No current symptoms of alcohol withdrawal. See psychiatry consult note for more details. Past Med Surg Social Fam HX - Past Medical History Medical history: diabetes, hyperlipidemia, hypertension, other - Past Psychiatric History Psychiatric history: Reports: depression, previous psychiatric hospitalization Family psychiatric history: Unknown Family History of Suicide: Unknown - Past Surgical History Surgical History: cataract, other - Social History Smoking Status: Former smoker Smokeless Tobacco Status: No Alcohol use: heavy, recent Drug use: none - Family History Mother Adopted: No Living Status: Hx Family Cardiac Disorders: Yes Hx Family Respiratory Disorders: No Hx Family Cancer: No Hx Family GI Disorders: No Hx Family Endocrine Disorder: No Hx Family Neuromuscular Disorders: Yes (Stroke) Hx Family Neurologic Disorders: No Hx Family HEENT Disorders: No Hx Family Autoimmune Disorders: No Medications & Allergies Cinnamon Bark [Cinnamon] 1,000 mg PO DAILY 04/23/15 [History] Cyanocobalamin (Vitamin B-12) [Vitamin B12] 1,000 mcg PO DAILY 04/23/15 [History ] Fexofenadine HCl 180 mg PO HS 04/23/15 [History] Saw [place] Fruit [Saw [place]] 900 mg PO DAILY 04/23/15 [History] Vitamin B Complex 1 tab PO DAILY 04/23/15 [History] Aspirin Enteric Coated [Aspirin EC] 81 mg PO DAILY tablet. 04/24/15 [Rx] Cholecalciferol (D-3) [Vitamin D] 1,000 unit PO DAILY 01/23/17 [History] Krill/Om-3/Dha/Epa/Phospho/Ast [Krill Oil 1,000 mg Softgel] 1,000 mg PO DAILY [History] Thiamine (B-1) [Vitamin B-1] 100 mg PO DAILY #30 tablet 01/26/17 [Rx] Atorvastatin [Lipitor] 10 mg PO HS 03/17/18 [History] Buspirone HCl [Buspar] 10 mg PO TID PRN 03/17/18 [History] Calcium Carb/Vit D3/Minerals [Ra Calcium 600-Minerals Tab] 2 tab PO HS 03/17/18 [History] Escitalopram [Lexapro] 5 mg PO DAILY 03/17/18 [History] Fluticasone Propionate Nasal [Flonase] 1 spr NS BID 03/17/18 [History] Losartan [Cozaar] 25 mg PO DAILY 03/17/18 [History] Metformin HCl [Glucophage] 1,000 mg PO HS 03/17/18 [History] Turmeric Root Extract [Turmeric] 1,053 mg PO DAILY 03/17/18 [History] metFORMIN [Glucophage] 500 mg PO QAM 03/17/18 [History] traZODone [TraZODone] 50 mg PO HS 03/17/18 [History] Calcium Carbonate [Tums] 1,000 mg PO QPM tab.chew 03/18/18 [Rx] Naloxone [Narcan] 0.4 mg IVP Q2MIN PRN inj 03/18/18 [Rx] Promethazine [Phenergan] 12.5 mg IVP Q4HR PRN vial 03/18/18 [Rx] Tamsulosin [Flomax] 0.4 mg PO DAILY capsule 03/18/18 [Rx] hydrALAZINE [HydrALAZINE] 10 mg IVP Q6HR PRN vial 03/18/18 [Rx] 3 Allergy/AdvReac Type Severity Reaction Status Date / Time No Known Allergies Allergy Verified 03/17/18 12:57 Review of Systems Constitutional: Denies: fever, chills, weakness, weight change Eyes: Denies: eye pain, vision change Ears, Nose, Throat: Denies: ear pain, throat pain, dental pain, hearing loss, congestion Cardiovascular: Denies: chest pain, palpitations, dyspnea on exertion Respiratory: Denies: cough, dyspnea, wheezes Gastrointestinal: Denies: abdominal pain, nausea, vomiting, diarrhea, constipation Genitourinary male: Denies: urgency, dysuria, frequency, genital lesions Musculoskeletal: Denies: joint swelling, joint pain Integumentary: Denies: rash, lesions, pruritus Neurological: Denies: headache, weakness, numbness, memory loss Endocrine: Denies: fatigue, heat or cold intolerance Hematologic/Lymphatic: Denies: easy bruising, lymphadenopathy Allergic/Immunologic: Denies: urticaria, itchy eyes Exam - HEENT Head exam IM: Present: atraumatic Eye exam IM: Present: EOMI, normal appearance, PERRL ENT exam IM: Present: normal exam - Neurological Neurological exam: Present: CN II-XII intact - Respiratory Respiratory exam IM: Present: CTAB - GI/Abdominal GI/Abdominal exam IM: Present: normal bowel sounds, soft. Absent: tenderness - Extremities Extremities exam IM: Present: full ROM - Skin Skin exam IM: Present: dry, warm - Constitutional Vitals: Temp Pulse Resp BP 97.5 F L 80 18 130/93 03/18/18 19:55 03/18/18 19:55 03/18/18 19:55 03/18/18 19:55 General appearance: age & developmentally appropriate, well-groomed, well- nourished - Musculoskeletal Gait: normal Station: relaxed Strength & Tone: normal for patient - Psychiatric Patient Orientation: Yes Person, Yes Time, Yes Place Level of alertness: Alert Behavior: calm, cooperative Psychomotor activity: Normal Eye Contact: Maintains Eye Contact Mood Description: Depressed Affect description: congruent with mood Speech Volume: Normal Speech pattern: normal rate, normal rhythm, normal tone, fluent, spontaneous Language & Vocabulary: consistent with education Thought Process: Linear Thought Content: Yes Suicidal ideation, No Homicidal ideation, No Overt delusions Perceptual Disturbances: No Auditory hallucinations, No Visual hallucinations Attention Span Ability: Capable of Focused Attention Memory Description: Grossly Intact Patient Reliability: Reliable Historian Fund of knowledge: Yes abstraction ability, Yes average, Yes aware of current events Intelligence Estimate: Above [place] Judgment: Limited Insight: Partial Assessment and Plan (1) Major depression, recurrent, chronic Current visit: No Status: Chronic Plan: Admit inpatient for safety and stabilization, Close observation, Suicide Precautions per unit protocol, Encourage participation in unit milieu, Group Therapy, Monitor sleep, Monitor appetite Plans for Post Hospital Care: Home Estimated Length of Stay (Days): 4 (2) Alcohol dependence Current visit: Yes Status: Acute Plan: Admit inpatient for safety and stabilization, Close observation, Suicide Precautions per unit protocol, Encourage participation in unit milieu, Group Therapy, Monitor sleep, Monitor appetite Risks, benefits, side effects, alternatives discussed w/pt: Yes Patient agreeable to treatment: Yes Plans for Post Hospital Care: Home Estimated Length of Stay (Days): 4 Qualifiers: Substance use status: uncomplicated Qualified Code(s): F10.20 - Alcohol dependence, uncomplicated
[2018-03-19] MEDS: Acetaminophen 325 MG TABLET PO PRN (20:34)
[2018-03-19] MEDS: traZODone 50 MG TABLET PO PRN (20:34)
[2018-03-19] MEDS: *HR* Metformin 500 MG TABLET PO SCH (20:35)
[2018-03-20] MEDS: Fluticasone Propionate Nasal 50 MCG/SPRAY BOTTLE NS SCH ×2 (08:52→20:07)
[2018-03-20] MEDS: Cyanocobalamin (B-12) 1,000 MCG TABLET PO SCH (08:52)
[2018-03-20] MEDS: Thiamine (B-1) 100 MG TABLET PO SCH (08:52)
[2018-03-20] MEDS: Cholecalciferol (D-3) 1,000 UNIT TABLET PO SCH (08:52)
[2018-03-20] MEDS: Aspirin Enteric Coated 81 MG Tablet PO SCH (08:52)
[2018-03-20] MEDS: *HR* Metformin 500 MG TABLET PO SCH ×2 (09:55→20:06)
[2018-03-20] MEDS: Acetaminophen 325 MG TABLET PO PRN (13:31)
--- NOTE | 2018-03-20 15:15 | Psychiatry Progress Note ---
Date of Encounter: 03/20/18 Time of Encounter: 15:00 Subjective Interval history: patient is a 72 year old man CC: I will stop the drinking HPI; he has been seeing Dr. Tavera. The patient plans to stop drinking. he has a goal of sobreity. he has requested to go home. he would like to do some more things. he now feels that he can do this. he feels case the can move ahead. he notes that this will help him with his depression. patient now reports no sucidal ideation. He has no plan to kill himself. There is no alcohol in the house. There is a gun but no ammunition. He reports no methold to kill himself and denies this. Review of Systems Psychiatric: Reports: depression Results - Vital Signs Vital Signs: Temp Pulse Resp BP 97.7 F 90 18 136/91 03/20/18 09:00 03/20/18 09:00 03/20/18 09:00 03/20/18 09:00 - Labs Labs: Laboratory Results - last 24 hr 03/20/18 08:23 POC Glucose 126 H Assessment and Plan (1) Other recurrent depressive disorders Current visit: Yes Status: Acute Plan: Continue hospitalization, Close observation, Suicide Precautions per unit protocol Risks, benefits, side effects, alternatives discussed w/pt: Yes Patient agreeable to treatment: Yes (2) Alcohol dependence Current visit: Yes Status: Chronic Plan: Continue hospitalization, Close observation Risks, benefits, side effects, alternatives discussed w/pt: Yes Patient agreeable to treatment: Yes Qualifiers: Substance use status: alcohol-induced mood disorder Qualified Code(s): F10.24 - Alcohol dependence with alcohol-induced mood disorder Consult Discharge Plan - Plan Referrals: NONE,PCP [Primary Care Provider] - Psychiatry Exam - Constitutional Vitals: Temp Pulse Resp BP 97.7 F 90 18 136/91 03/20/18 09:00 03/20/18 09:00 03/20/18 09:00 03/20/18 09:00 General appearance: age & developmentally appropriate, well-groomed, well- nourished - Musculoskeletal Gait: normal Station: relaxed Strength & Tone: normal for patient - Psychiatric Patient Orientation: Yes Person, Yes Time, Yes Place Level of alertness: Alert Behavior: calm, cooperative Psychomotor activity: Normal Eye Contact: Maintains Eye Contact Mood Description: Euthymic/stable Affect description: congruent with mood, full range Speech Volume: Normal Speech pattern: normal rate, normal rhythm, normal tone, fluent, spontaneous Language & Vocabulary: consistent with education Thought Process: Linear, Goal Oriented Thought Content: No Suicidal ideation, No Homicidal ideation, No Overt delusions Perceptual Disturbances: No Auditory hallucinations, No Visual hallucinations Attention Span Ability: Capable of Focused Attention Memory Description: Grossly Intact Patient Reliability: Reliable Historian Fund of knowledge: Yes abstraction ability, Yes aware of current events Intelligence Estimate: Average Judgment: Limited Insight: Minimal (he has philosphy of assisted suicide)
[2018-03-20] MEDS: traZODone 50 MG TABLET PO PRN (20:08)
[2018-03-21] MEDS: Thiamine (B-1) 100 MG TABLET PO SCH (08:37)
[2018-03-21] MEDS: Aspirin Enteric Coated 81 MG Tablet PO SCH (08:37)
[2018-03-21] MEDS: Cholecalciferol (D-3) 1,000 UNIT TABLET PO SCH (08:37)
[2018-03-21] MEDS: Cyanocobalamin (B-12) 1,000 MCG TABLET PO SCH (08:37)
[2018-03-21] MEDS: *HR* Metformin 500 MG TABLET PO SCH (08:56)
[2018-03-21] MEDS: Acetaminophen 325 MG TABLET PO PRN (08:57)
[2018-03-21] MEDS: Fluticasone Propionate Nasal 50 MCG/SPRAY BOTTLE NS SCH (08:58)
[2018-03-21 09:17] VITALS: BP 126/96
--- NOTE | 2018-03-21 09:52 | Discharge Summary ---
Date of Encounter: 03/21/18 Time of Encounter: 09:45 Diagnosis - Discharge Diagnosis (1) Other recurrent depressive disorders Status: Acute (2) Alcohol dependence Status: Chronic Qualifiers: Substance use status: alcohol-induced mood disorder Qualified Code(s): F10.24 - Alcohol dependence with alcohol-induced mood disorder Medications - Discharge Medications Prescriptions: Escitalopram [Lexapro] 5 mg PO DAILY 14 Days #14 tablet traZODone [TraZODone] 50 mg PO HS 14 Days #14 tablet Cinnamon Bark [Cinnamon] 1,000 mg PO DAILY 04/23/15 [History] Cyanocobalamin (Vitamin B-12) [Vitamin B12] 1,000 mcg PO DAILY 04/23/15 [History ] Fexofenadine HCl 180 mg PO HS 04/23/15 [History] Saw [place] Fruit [Saw [place]] 900 mg PO DAILY 04/23/15 [History] Vitamin B Complex 1 tab PO DAILY 04/23/15 [History] Aspirin Enteric Coated [Aspirin EC] 81 mg PO DAILY tablet. 04/24/15 [Rx] Cholecalciferol (D-3) [Vitamin D] 1,000 unit PO DAILY 01/23/17 [History] Krill/Om-3/Dha/Epa/Phospho/Ast [Krill Oil 1,000 mg Softgel] 1,000 mg PO DAILY [History] Thiamine (B-1) [Vitamin B-1] 100 mg PO DAILY #30 tablet 01/26/17 [Rx] Atorvastatin [Lipitor] 10 mg PO HS 03/17/18 [History] Buspirone HCl [Buspar] 10 mg PO TID PRN 03/17/18 [History] Calcium Carb/Vit D3/Minerals [Ra Calcium 600-Minerals Tab] 2 tab PO HS 03/17/18 [History] Fluticasone Propionate Nasal [Flonase] 1 spr NS BID 03/17/18 [History] Losartan [Cozaar] 25 mg PO DAILY 03/17/18 [History] Metformin HCl [Glucophage] 1,000 mg PO HS 03/17/18 [History] Turmeric Root Extract [Turmeric] 1,053 mg PO DAILY 03/17/18 [History] metFORMIN [Glucophage] 500 mg PO QAM 03/17/18 [History] Calcium Carbonate [Tums] 1,000 mg PO QPM tab.chew 03/18/18 [Rx] Naloxone [Narcan] 0.4 mg IVP Q2MIN PRN inj 03/18/18 [Rx] Promethazine [Phenergan] 12.5 mg IVP Q4HR PRN vial 03/18/18 [Rx] Tamsulosin [Flomax] 0.4 mg PO DAILY capsule 03/18/18 [Rx] hydrALAZINE [HydrALAZINE] 10 mg IVP Q6HR PRN vial 03/18/18 [Rx] Cyanocobalamin (B-12) [Vitamin B12] 1,000 mcg PO DAILY tablet 03/21/18 [Rx] Escitalopram [Lexapro] 5 mg PO DAILY 14 Days #14 tablet 03/21/18 [Rx] traZODone [TraZODone] 50 mg PO HS 14 Days #14 tablet 03/21/18 [Rx] 3 Allergy/AdvReac Type Severity Reaction Status Date / Time No Known Allergies Allergy Verified 03/17/18 12:57 Provider Date of admission: 03/18/18 17:55 Primary care physician: PCP NONE Discharging clinician: Aman Velazquez Psychiatry Exam - Constitutional Vitals: Temp Pulse Resp BP 98 F 79 20 126/96 03/21/18 09:00 03/21/18 09:00 03/21/18 09:00 03/21/18 09:00 General appearance: age & developmentally appropriate, well-groomed, well- nourished - Musculoskeletal Gait: normal Station: relaxed Strength & Tone: normal for patient - Psychiatric Patient Orientation: Yes Person, Yes Time, Yes Place Level of alertness: Alert Behavior: calm, cooperative Psychomotor activity: Normal Eye Contact: Maintains Eye Contact Mood Description: Euthymic/stable Affect description: congruent with mood, full range Speech Volume: Normal Speech pattern: normal rate, normal rhythm, normal tone, fluent, spontaneous Language & Vocabulary: consistent with education Thought Process: Linear, Goal Oriented Thought Content: No Suicidal ideation, No Homicidal ideation, No Overt delusions Perceptual Disturbances: No Auditory hallucinations, No Visual hallucinations Attention Span Ability: Capable of Focused Attention Memory Description: Grossly Intact Patient Reliability: Reliable Historian Fund of knowledge: Yes abstraction ability, Yes aware of current events Intelligence Estimate: Average Judgment: Limited Insight: Minimal Hospital Course Hospital course: Mr. Pratt is a 72 year old male The patient presented to the ER. Chief complaint I stated that I wanted to . But I did not want to kill myself. History of present illness:. The patient has been previously treated for major depression and has a history of alcohol dependence. He presented with intoxication and suicidal ideation. The patient was placed on a 72 hour hold for safety. The patient improved with a period of time and has denied a suicidal ideation with plan. However, the patient's alcohol consumption has increased while he has had periods of sobriety he thought that he could go back to control drinking. The patient was seen and evaluated he was continued on antidepressant medicines but the medicine used for augmentation was not available on the [facility] formulary. The patient noted improvement in mood and there is no return of suicidal ideation. After further discussion he agreed to abstinence from alcohol as a goal of therapy. Some of the ongoing stresses with his relationship with his were discussed. The patient participated in group and individual and psychoeducation. The patient reported a history of hyponatremia sodium was 132 on admission. The patient had blood sugars checked and had satisfactory control of blood sugar all with metformin. His hemoglobin A1c was 6.4. The patient agreed to follow-up with Dr. Terry Guevara. He also agreed to counseling at site of [facility]. A letter was prepared to send Dr. Ismael drivering the follow-up plan. - Time Spent with Patient Total time spent providing and/or coordinating discharge services: Less than 30 minutes Assessment and Plan - Patient/Caregiver Discharge Instructions Activity: resume usual activities as tolerated Diet: diabetic diet, advance to your usual diet - Follow up Plan Follow up with: [facility] [Outside] - 04/11/18 11:00 am (The above appointment is with Dr Guevara a psychiatric provider. Please bring insurance card and photo ID. ) [facility] - 03/28/18 9:30 am (The above appointment is with [facility] for mental health/[facility] counseling. Please bring proof of income, proof of residence, photo ID and insurance card. Please bring completed [facility] intake packet that you were provided with at the hospital to your appointment. You will receive a reminder phone call 2 days prior to your appointment.) Overall status at discharge: Stable Disposition: Home, Self-Care Quality - Multiple Antipsychotics Patient discharged on 2 or more antipsychotic medications: No Procedures - Procedures Procedures: Medication Management, Crisis Stabilization, Supportive Therapy, Group Therapy, Psychoeducational Therapy
== END 2018-03-21 14:50 | disposition home or self-care (01) | DRG 885 ==
LOC: SUATTDRO 17:55 → 1ANU 17:55
PROVIDERS: ADMIT Psychiatry & Neurology Psychiatry; ATTEND Psychiatry & Neurology Forensic Psychiatry

== ENCOUNTER 2018-05-22 18:50 | Inpatient (IN) ==
[2018-05-22 19:24] LABS: Basophils % 0.5 %; Eosinophils # 0.1 K/mcL (0.0-0.6); Eosinophils % 1.4 %; Hematocrit 42.9 % (37.5-50.1); Hemoglobin 15.6 g/dL (12.9-16.9); Immature Granulocytes % 0.3 % (0-4); Lymphocytes # 1.5 K/mcL (0.6-4.6); Lymphocytes % 20.4 %; Mean Corpuscular HGB Conc 36.4 g/dL (31.6-35.5); Mean Corpuscular Hemoglobin 34.1 pg (28.0-33.3); Mean Corpuscular Volume 93.7 fL (83.0-100.0); Mean Platelet Volume 9.5 fL (9.4-12.4); Monocytes # 0.7 K/mcL (0.0-1.3); Platelet Count 211 K/mcL (140-400); Red Blood Count 4.58 M/mcL (4.19-5.50); Red Cell Distribution Width 11.7 % (11.5-14.5); Segmented Neutrophils % 68.4 %
[2018-05-22 19:31] LABS: INR 1.2; Prothrombin Time 13.1 Seconds (9.4-12.1)
[2018-05-22 19:33] LABS: Activated Partial Thrombo Time 29.3 Seconds (26.0-36.0)
[2018-05-22 19:45] LABS: BUN/Creatinine Ratio 13 (6-26); Blood Urea Nitrogen 10 mg/dL (8-23); Calcium 9.4 mg/dL (8.6-10.3); Carbon Dioxide 20 mEq/L (23-29); Chloride 93 mEq/L (98-107); Glucose 107 mg/dL (70-105); Osmolality,Calculated 260 (280-300); Potassium 4.1 mEq/L (3.5-5.1); Sodium 125 mEq/L (136-145); eGFR For Non-African Americans > 60 (> 60)
[2018-05-22 19:46] LABS: Troponin I < 0.03 ng/mL (< 0.04)
[2018-05-22 20:23] LABS: Bilirubin,Urine Negative (Negative); Blood,Urine Negative (Negative); Clarity,Urine Clear (Clear); Color,Urine Yellow (Yellow); Glucose,Urine (UA) Normal (Normal); Ketones,Urine 15 mg/dL (Negative); Leukocyte Esterase,Urine Small (Negative); Nitrite,Urine Negative (Negative); Protein,Urine Negative (Neg-Trace); Urobilinogen,Urine Normal (Normal)
[2018-05-22] MEDS ORDERED: 0.9 % Sodium Chloride 1,000 ML IVC SCH (20:30)
[2018-05-22 20:32] LABS: Mucus,Urine Few (Few); WBC,Urine 0-3 per hpf (0-3)
--- NOTE | 2018-05-22 20:46 | Emergency Department Note ---
Disposition Clinical Impression: Hyponatremia, Generalized weakness, PAC (premature atrial contraction) Disposition: Admitted As Inpatient General Adult HPI - General Chief complaint: ED Weakness Stated complaint: Weakness Time Seen by Provider: 05/22/18 18:55 Source: patient, EMS Mode of arrival: EMS Limitations: no limitations Nursing Notes Reviewed: Yes Vital Signs Reviewed: Yes - History of Present Illness HPI Narrative: Patient is a 72-year-old male with past medical history significant for hypertension, diabetes and hyponatremia. He is presenting with a chief complaint of weakness. The patient states he has been on sodium supplements for the past month and his last sodium was checked 2 weeks ago which was 129. He has been complaining of increasing tiredness for the past week. This is progressing to wear the past couple of days every time he stands up, he feels a heaviness. He states he was a loss of energy. Yesterday when he started standing up he developed a dull frontal throbbing headache. This resolved every time he sat back down. He denies any numbness, tingling, vision changes, confusion, change in strength in his arms or legs. He states he is still able to walk without difficulty. He has had no falls. Today he was feeling generally weak and tired. He developed a couple of episodes of dull left-sided chest pain that lasted for a few seconds and he felt anxious. He has no history of coronary artery disease or history of strokes. He called EMS to bring him to the emergency department for further evaluation. He denies any fevers, chills, nausea, dysuria, change in bowel. He denies lightheadedness or dizziness. Pain Scale: 0 - Related Data Home Medications Medication Instructions Recorded Confirmed Cinnamon Bark [Cinnamon] 1,000 mg PO DAILY 04/23/15 04/12/18 Cyanocobalamin (Vitamin B-12) 1,000 mcg PO DAILY 04/23/15 04/12/18 [Vitamin B12] Fexofenadine HCl 180 mg PO HS 04/23/15 04/12/18 Saw Deering Fruit [Saw Deering] 900 mg PO DAILY 04/23/15 04/12/18 Vitamin B Complex 1 tab PO DAILY 04/23/15 04/12/18 Cholecalciferol (D-3) [Vitamin D] 1,000 unit PO DAILY 01/23/17 04/12/18 Krill/Om-3/Dha/Epa/Phospho/Ast 1,000 mg PO DAILY 01/23/17 04/12/18 [Krill Oil 1,000 mg Softgel] Atorvastatin [Lipitor] 10 mg PO HS 03/17/18 04/12/18 Buspirone HCl [Buspar] 10 mg PO TID PRN 03/17/18 04/12/18 Calcium Carb/Vit D3/Minerals [Ra 2 tab PO HS 03/17/18 04/12/18 Calcium 600-Minerals Tab] Fluticasone Propionate Nasal 1 spr NS BID 03/17/18 04/12/18 [Flonase] Losartan [Cozaar] 25 mg PO DAILY 03/17/18 04/12/18 Metformin HCl [Glucophage] 1,000 mg PO HS 03/17/18 04/12/18 Turmeric Root Extract [Turmeric] 1,053 mg PO DAILY 03/17/18 04/12/18 metFORMIN [Glucophage] 500 mg PO QAM 03/17/18 04/12/18 Previous Rx's Medication Instructions Recorded Aspirin Enteric Coated [Aspirin EC] 81 mg PO DAILY tablet. 04/24/15 Thiamine (B-1) [Vitamin B-1] 100 mg PO DAILY #30 tablet 01/26/17 Calcium Carbonate [Tums] 1,000 mg PO QPM tab.chew 03/18/18 Naloxone [Narcan] 0.4 mg IVP Q2MIN PRN inj 03/18/18 Promethazine [Phenergan] 12.5 mg IVP Q4HR PRN vial 03/18/18 Tamsulosin [Flomax] 0.4 mg PO DAILY capsule 03/18/18 hydrALAZINE [HydrALAZINE] 10 mg IVP Q6HR PRN vial 03/18/18 Cyanocobalamin (B-12) [Vitamin B12] 1,000 mcg PO DAILY tablet 03/21/18 Escitalopram [Lexapro] 5 mg PO DAILY 14 Days #14 tablet 03/21/18 traZODone [TraZODone] 50 mg PO HS 14 Days #14 tablet 03/21/18 Phenylephrine Nasal 0.25% Spra 2 spray NS BID PRN #1 bottle 04/12/18 [Emanuel-Synephrine] Allergies Allergy/AdvReac Type Severity Reaction Status Date / Time No Known Allergies Allergy Verified 04/12/18 18:28 All systems ED: reviewed and negative except as stated. Review of Systems: As Per HPI Constitutional: Denies: fever, chills Eyes: Denies: vision change ENT ED: Denies: throat pain, dysphagia Cardiovascular: Reports: chest pain. Denies: palpitations Respiratory: Denies: cough, dyspnea, wheezes Gastrointestinal: Denies: abdominal pain, nausea Genitourinary: Denies: dysuria Musculoskeletal: Denies: back pain Neurological: Reports: headache, weakness. Denies: numbness, confusion, abnormal gait Psychiatric: Reports: anxiety Hematological/Lymphatic: Denies: easy bleeding Past Medical History - Past Medical History Attestation: Yes The following information was validated with the patient. Source: patient Medical history: Reports: diabetes, hypertension, other Surgical history: Reports: cataract, other Psychiatric history: Reports: depression, previous psychiatric hospitalization - Social History Smoking Status: Former smoker Smokeless Tobacco Status: No Alcohol use: Reports: none Drug use: Reports: none Physical Exam - General Limitations: no limitations General appearance: alert, lethargic - Head Head exam: atraumatic, normocephalic - Eye Eye exam: Present: normal appearance, PERRL, EOMI, other (No nystagmus) - Respiratory Respiratory exam: Present: normal lung sounds bilaterally. Absent: respiratory distress, wheezes - Cardiovascular Cardiovascular exam: Present: regular rate, normal rhythm - Abdominal Exam Abdominal exam: Present: soft, Non-Tender. Absent: distention, guarding Course Vital Signs Temperature 98.0 F 05/22/18 18:55 Pulse Rate 68 05/22/18 18:55 Respiratory Rate 18 05/22/18 18:55 Blood Pressure 160/108 05/22/18 18:55 O2 Sat by Pulse Oximetry 97 05/22/18 18:55 Temperature 98.0 F 05/22/18 18:55 Pulse Rate 73 05/22/18 21:05 Respiratory Rate 18 05/22/18 21:05 Blood Pressure 174/118 05/22/18 21:05 O2 Sat by Pulse Oximetry 95 05/22/18 21:05 Oxygen Delivery Oxygen Delivery Room Air Medical Decision Making - MDM Narrative Medical decision making narrative: Patient's NIH score is 0. No neurologic deficits on exam. We have the patient has generalized weakness. The patient has hyponatremia as on sodium pills, will check BMP. Patient was also complaining of some mild left-sided chest pain. He has never had a heart attack in the past and has history of hypertension and diabetes. He believes it is related to anxiety as he has a history of anxiety. He is chest pain free here. We will check EKG and troponin. We will obtain chest x-ray, CBC, TSH, and urinalysis. 20:00 EKG with sinus rhythm occasional PACs. No evidence of acute ischemia. Troponin is negative. Sodium is 125 which is decreased from prior (128 on 05/17) . We will start IV fluids. 20:40 Consult hospitalist for admission for hyponatremia and generalized weakness. 21:00 Discussed with hospitalist. He accepts admission. Urine sodium, urine osmolality were ordered at this time. Repeat serum sodium. No further recommendations at this time. - Medical Records Medical records reviewed: Yes I reviewed the patient's medical records. - Lab Data Lab results reviewed: Yes I reviewed the patient's lab results. Result diagrams: 05/22/18 19:12 05/22/18 19:12 Lab Results 05/22/18 05/22/18 05/22/18 Range/Units 19:12 19:12 19:12 WBC 7.4 (4.3-11.1) K/mcL RBC 4.58 (4.19-5.50) M/mcL Hgb 15.6 (12.9-16.9) g/dL Hct 42.9 (37.5-50.1) % MCV 93.7 (83.0-100.0) fL MCH 34.1 H (28.0-33.3) pg MCHC 36.4 H (31.6-35.5) g/dL RDW 11.7 (11.5-14.5) % Plt Count 211 (140-400) K/mcL MPV 9.5 (9.4-12.4) fL Immature Gran % 0.3 (0-4) % Seg Neutrophils % 68.4 % Lymphocytes % 20.4 % Monocytes % 9.0 % Eosinophils % 1.4 % Basophils % 0.5 % Neutrophils # 5.0 (1.6-8.9) K/mcL Lymphocytes # 1.5 (0.6-4.6) K/mcL Monocytes # 0.7 (0.0-1.3) K/mcL Eosinophils # 0.1 (0.0-0.6) K/mcL Basophils # 0.0 (0.0-0.2) K/mcL PT 13.1 H (9.4-12.1) Seconds INR 1.2 APTT 29.3 (26.0-36.0) Seconds Sodium 125 L (136-145) mEq/L Potassium 4.1 (3.5-5.1) mEq/L Chloride 93 L (98-107) mEq/L Carbon Dioxide 20 L (23-29) mEq/L BUN 10 (8-23) mg/dL Creatinine 0.75 (0.70-1.30) mg/dL Est GFR ( Amer) > 60 (> 60) Est GFR (Non-Af Amer) > 60 (> 60) BUN/Creatinine Ratio 13 (6-26) Glucose 107 H (70-105) mg/dL Calculated Osmolality 260 L (280-300) Calcium 9.4 (8.6-10.3) mg/dL Troponin I < 0.03 (< 0.04) ng/mL TSH 2.093 (0.340-5.600) mcIU/mL Urine Color (Yellow) Urine Clarity (Clear) Urine pH (5.0-8.0) pH Units Ur Specific Galva (1.010-1.025) Urine Protein (Neg-Trace) mg/dL Urine Glucose (UA) (Normal) mg/dL Urine Ketones (Negative) mg/dL Urine Blood (Negative) Urine Nitrite (Negative) Urine Bilirubin (Negative) Urine Urobilinogen (Normal) mg/dL Ur Leukocyte Esterase (Negative) Urine Microscopic WBC (0-3) per hpf Urine Mucus (Few) 05/22/18 Range/Units 20:05 WBC (4.3-11.1) K/mcL RBC (4.19-5.50) M/mcL Hgb (12.9-16.9) g/dL Hct (37.5-50.1) % MCV (83.0-100.0) fL MCH (28.0-33.3) pg MCHC (31.6-35.5) g/dL RDW (11.5-14.5) % Plt Count (140-400) K/mcL MPV (9.4-12.4) fL Immature Gran % (0-4) % Seg Neutrophils % % Lymphocytes % % Monocytes % % Eosinophils % % Basophils % % Neutrophils # (1.6-8.9) K/mcL Lymphocytes # (0.6-4.6) K/mcL Monocytes # (0.0-1.3) K/mcL Eosinophils # (0.0-0.6) K/mcL Basophils # (0.0-0.2) K/mcL PT (9.4-12.1) Seconds INR APTT (26.0-36.0) Seconds Sodium (136-145) mEq/L Potassium (3.5-5.1) mEq/L Chloride (98-107) mEq/L Carbon Dioxide (23-29) mEq/L BUN (8-23) mg/dL Creatinine (0.70-1.30) mg/dL Est GFR ( Amer) (> 60) Est GFR (Non-Af Amer) (> 60) BUN/Creatinine Ratio (6-26) Glucose (70-105) mg/dL Calculated Osmolality (280-300) Calcium (8.6-10.3) mg/dL Troponin I (< 0.04) ng/mL TSH (0.340-5.600) mcIU/mL Urine Color Yellow (Yellow) Urine Clarity Clear (Clear) Urine pH 8.0 (5.0-8.0) pH Units Ur Specific Galva 1.010 (1.010-1.025) Urine Protein Negative (Neg-Trace) mg/dL Urine Glucose (UA) Normal (Normal) mg/dL Urine Ketones 15 H (Negative) mg/dL Urine Blood Negative (Negative) Urine Nitrite Negative (Negative) Urine Bilirubin Negative (Negative) Urine Urobilinogen Normal (Normal) mg/dL Ur Leukocyte Esterase Small H (Negative) Urine Microscopic WBC 0-3 (0-3) per hpf Urine Mucus Few (Few) - Radiology Data Radiology results reviewed: Yes I reviewed the patient's radiology results. - EKG Data EKG #1 EKG attestation: Yes I reviewed and interpreted this EKG. EKG results narrative: EKG on 05/22/2018 at 1900 shows sinus rhythm with heart rate 74 with occasional PACs. DC interval 174. QT 429. QTC is 476. No ST elevation or depression or evidence of acute ischemia. No WPW or brugada. Compared to EKG on 03/16/2018 which showed sinus rhythm with rate 61. There were no PACs on this EKG. Attestation Statement - Attestation Attestation: I examined this patient and my medical decision-making was reviewed with the Resident Physician, Dr. Casillas. I agree with the documented findings, disposition and treatment plan as described except to the extent set forth below. Patient is 72-year-old white male with a history of hypertension who presents to the permit today with complaints of generalized weakness that is slowly worsening over the past few days. Patient denies any focal neurologic deficits no slurred speech no headaches or vertigo. Patient states he has had a history of hyponatremia and is felt this way in the past for his sodium gets very low and so came in for evaluation. Patient also complained of some intermittent chest discomfort that is felt has not been exertional related he is pain-free now but states his been having intermittent fleeting episodes of left-sided discomfort. Patient's physical exam findings as documented. Vital signs are stable patient' s resting E no acute distress and is chest pain-free at this time. Patient's EKG shows a normal sinus rhythm with occasional PACs. No ischemia is appreciated. Lab evaluation does show a hyponatremia at 125, this is despite him taking one gram sodium supplementation at home daily. Patient's troponin is negative and remainder of workup is unremarkable. Patient will be started on IV fluids for slow sodium replacement and admitted to the hospitalist service for further evaluation and management.
[2018-05-22 21:13] LABS: Thyroid Stimulating Hormone 2.093 mcIU/mL (0.340-5.600)
[2018-05-23] MEDS ORDERED: Naloxone 0.4 MG/ML INJ IVP PRN (00:39)
[2018-05-23] MEDS ORDERED: D5% in Water 1,000 ML IVC PRN (00:39)
[2018-05-23] MEDS ORDERED: Dextrose Gel 15 GM/37.5 ML TUBE PO PRN ×2 (00:39)
[2018-05-23] MEDS ORDERED: *HR* Dextrose 50 % in Water (Syg) 50 ML SYRINGE IVP PRN (00:39)
[2018-05-23] MEDS ORDERED: 0.9 % Sodium Chloride 1,000 ML IVC SCH (00:45)
[2018-05-23 02:12] LABS: Basophils % 0.6 %; Eosinophils # 0.1 K/mcL (0.0-0.6); Eosinophils % 1.8 %; Hematocrit 43.4 % (37.5-50.1); Hemoglobin 15.3 g/dL (12.9-16.9); Immature Granulocytes % 0.3 % (0-4); Lymphocytes # 1.4 K/mcL (0.6-4.6); Lymphocytes % 21.8 %; Mean Corpuscular HGB Conc 35.3 g/dL (31.6-35.5); Mean Corpuscular Hemoglobin 33.1 pg (28.0-33.3); Mean Corpuscular Volume 93.9 fL (83.0-100.0); Mean Platelet Volume 9.6 fL (9.4-12.4); Monocytes # 0.7 K/mcL (0.0-1.3); Monocytes % 10.1 %; Neutrophils # 4.3 K/mcL (1.6-8.9); Platelet Count 212 K/mcL (140-400); Red Blood Count 4.62 M/mcL (4.19-5.50); Red Cell Distribution Width 11.9 % (11.5-14.5); Segmented Neutrophils % 65.4 %
[2018-05-23 02:33] LABS: Alanine Aminotransferase 25 Units/L (7-52); Albumin 4.3 g/dL (3.5-5.7); Albumin/Globulin Ratio 1.5 (1.1-2.2); Alkaline Phosphatase 34 Units/L (34-104); Aspartate Amino Transferase 25 Units/L (13-39); BUN/Creatinine Ratio 11 (6-26); Bilirubin,Total 0.5 mg/dL (0.3-1.0); Blood Urea Nitrogen 8 mg/dL (8-23); Calcium 9.2 mg/dL (8.6-10.3); Carbon Dioxide 20 mEq/L (23-29); Chloride 98 mEq/L (98-107); Globulin 2.8 g/dL (2.4-3.5); Glucose 119 mg/dL (70-105); Osmolality,Calculated 265 (280-300); Sodium 128 mEq/L (136-145); Total Protein 7.1 g/dL (6.4-8.9); eGFR For Non-African Americans > 60 (> 60)
[2018-05-23] MEDS ORDERED: Insulin LISPRO 300 UNITS/3 ML VIAL SQ SCH ×2 (06:00→21:00)
--- NOTE | 2018-05-23 06:02 | Internal Med History&Physical ---
Date of Encounter: 05/24/18 Time of Encounter: 00:39 Internal Medicine - H&P: HPI Chief complaint: Generalized Fatigue History of present illness: Mr. Pratt is a 72 year old male with a past medical history of hypertension, diabetes and chronic hyponatremia who presented to the ED today due to a chief complaint of generalized weakness and fatigue. Patient states that for the last couple of days he has been feeling weak and shaky and a little off balance. When asked if his weakness is due to muscle weakness versus lack of energy, he endorses that he feels like he does not have any energy. Patient was diagnosed with low a low sodium level this last spring and was subsequently put on sodium tablets of 1 g per day by his primary care physician. Patient was seen by Dr. Pritchard with nephrology who has worked him up further for the cause of his hyponatremia. He has yet to follow-up with him for the results of these tests but has appointment a week from now. He reports decreased PO intake ever since he stopped drinking in March. He states that his appetite has been poor since then and has lost about 10 pounds of weight over 2 months unintentionally. Patient used to drink 10-12 ounces of hard liquor a day for many years. Patient has otherwise been compliant with his medications. He reports no fever, chills, nausea, vomiting, abdominal pain or diarrhea. Further denies any numbness or tingling in his extremities. Past Med Surg Social Fam HX - Past Medical History Medical history: diabetes, hypertension Additional medical history: ENLARGED PROSTATE Psychiatric history: anxiety, depression, previous psychiatric hospitalization - Past Surgical History Surgical History: cataract, other Additional surgical history: colon resection for diverticulitis - Social History Smoking Status: Former smoker Smokeless Tobacco Status: No Alcohol use: none Drug use: none - Family History Mother Adopted: No Living Status: Age at : 85 Cause of : CARDIAC ISSUES. Hx Family Cardiac Disorders: Yes Hx Family Respiratory Disorders: No Hx Family Cancer: No Hx Family GI Disorders: No Hx Family Endocrine Disorder: No Hx Family Neuromuscular Disorders: Yes (Stroke) Hx Family Neurologic Disorders: No Hx Family HEENT Disorders: No Hx Family Autoimmune Disorders: No Internal Medicine - H&P: Meds Cinnamon Bark [Cinnamon] 1,000 mg PO DAILY 04/23/15 [History] Vitamin B Complex 1 tab PO DAILY 04/23/15 [History] Aspirin Enteric Coated [Aspirin EC] 81 mg PO DAILY tablet. 04/24/15 [Rx] Krill/Om-3/Dha/Epa/Phospho/Ast [Krill Oil 1,000 mg Softgel] 1,000 mg PO DAILY [History] Atorvastatin [Lipitor] 10 mg PO HS 03/17/18 [History] Buspirone HCl [Buspar] 10 mg PO TID PRN 03/17/18 [History] Calcium Carb/Vit D3/Minerals [Ra Calcium 600-Minerals Tab] 1 tab PO BIDWM [History] Fluticasone Propionate Nasal [Flonase] 1 spr NS BID 03/17/18 [History] Losartan [Cozaar] 25 mg PO DAILY 03/17/18 [History] Metformin HCl [Glucophage] 1,000 mg PO BID 03/17/18 [History] Turmeric Root Extract [Turmeric] 1,053 mg PO DAILY 03/17/18 [History] traZODone [TraZODone] 50 mg PO HS 14 Days #14 tablet 03/21/18 [Rx] Escitalopram [Lexapro] 10 mg PO DAILY 05/22/18 [History] Tamsulosin [Flomax] 0.4 mg PO BID 05/22/18 [History] Brexpiprazole [Rexulti] 1.5 mg PO DAILY 05/23/18 [History] Sodium Chloride [Sodium Chloride Tab] 1 gm PO DAILY 05/23/18 [History] 3 Allergy/AdvReac Type Severity Reaction Status Date / Time No Known Allergies Allergy Verified 04/12/18 18:28 All Systems PM: A 10-system review of systems was performed and is negative for pertinent findings except as documented above in the HPI. - Constitutional Constitutional: no chills, no fever(s), no night sweats - EENT Eyes: no change in vision, no discharge, no pain, no photophobia Ears: no ear discharge, no ear pain, no tinnitus Nose, mouth and throat: no dysphagia, no nasal discharge, no neck pain, no sore throat - Cardiovascular Cardiovascular ROS IM: no chest pain, no diaphoresis, no dyspnea, no lightheadedness, no palpitations, no syncope - Respiratory Respiratory: no cough, no dyspnea, no wheezing, no excessive phlegm production - Gastrointestinal Gastrointestinal: no abdominal pain, no diarrhea, no hematemesis, no hematochezia, no melena, no nausea, no vomiting - Musculoskeletal Musculoskeletal ROS IM: no numbness, no tingling - Integumentary Integumentary IM: no rash, no unusual bruising - Neurological Neurological ROS: no confusion, no convulsions, no focal weakness, no numbness, no tingling, no tremor(s) - Hematologic/Lymphatic Hematologic/Lymphatic: no easy bruising - Constitutional Vitals: Temp Pulse Resp BP Pulse Ox 98.1 F 80 16 146/89 95 05/23/18 03:52 05/23/18 03:52 05/23/18 03:52 05/23/18 03:52 05/23/18 03:52 Exam: General: Alert and oriented 3; lying in bed in no acute distress Skin:Normal color, no rash, no lesions. HEENT:EOM, pupils equal, round and reactive. Cardiovascular:Normal S1 & S2, no rubs, murmurs or gallops. No JVD. Pulse regular. Lungs:Normal breath sounds, no wheezes or crackles. Abdomen:Soft, mildly distended, non-tender, no rigidity. Extremities:No deformity, no edema or tenderness, no joint swelling or clubbing. Neurological:Normal cognition; cranial nerves II through XII intact; muscle strength 4 out of 5 bilaterally in the lower extremities; 5 out of 5 in the upper extremities. Sensation intact. . Pulses:Carotid and radial pulses normal +2. Rest of the physical exam is non contributory Internal Med - H&P Results - Labs CBC & Chem 7: 05/23/18 01:30 05/24/18 00:54 Labs: Short CBC 05/23/18 Range/Units 01:30 WBC 6.6 (4.3-11.1) K/mcL Hgb 15.3 (12.9-16.9) g/dL Hct 43.4 (37.5-50.1) % Plt Count 212 (140-400) K/mcL Neutrophils # 4.3 (1.6-8.9) K/mcL BMP 05/22/18 05/23/18 21:41 01:30 Sodium 126 L 128 L Potassium 4.0 Chloride 98 Carbon Dioxide 20 L BUN 8 Creatinine 0.75 Glucose 119 H Calcium 9.2 Liver Function 05/23/18 Range/Units 01:30 Total Bilirubin 0.5 (0.3-1.0) mg/dL AST 25 (13-39) Units/L ALT 25 (7-52) Units/L Alkaline Phosphatase 34 (34-104) Units/L Albumin 4.3 (3.5-5.7) g/dL - Assessment and plan (1) Generalized weakness Current Visit: Yes Status: Acute Assessment and plan: Generalized fatigue and lack of energy likely secondary to poor by mouth intake. Unclear whether his chronic hyponatremia is a contributing component. His neurologic exam was relatively benign. Patient has no evidence of an infection. Chest x-ray unremarkable. He reports that he is feeling better. We will continue gentle hydration. (2) Hyponatremia Current Visit: Yes Status: Acute Assessment and plan: Chronic hyponatremia with sodium running in the mid 120s. Patient has been compliant with his sodium tablets. Furthermore, he has had outpatient workup for his hyponatremia with nephrology with follow-up appointment in 1 week. Urine osmolality order was attempted however was told that it would be a send out. Urine sodium was also ordered which was greater than 40. Given that the patient looks euvolemic and has a normal TSH, patient may have SIADH; less likely glucocorticoid deficiency given the patient's blood pressure and normal potassium. At this time his hyponatremia is chronic and patient has had workup done with nephrology as an outpatient. Would recommend follow-up with his appointment in one week with nephrology. (3) Anxiety Current Visit: No Status: Acute Assessment and plan: Patient has a history of anxiety. We will resume home medications. (4) HTN (hypertension) Current Visit: No Status: Chronic Assessment and plan: Blood pressure elevated initially elevated however patient reports anxiety especially after spending several hours Elster's in the ED. Patient has taken all his home medications today. We will give PRN hydralazine. Qualifiers: Hypertension type: unspecified Qualified Code(s): I10 - Essential (primary ) hypertension - Time Spent With Patient Total time spent is greater than 50% in coordination of care (as documented) at patient's floor/unit and/or counseling patient:
[2018-05-23] MEDS: Vitamin B Complex/Vit C/Vit E 1 EACH TABLET PO SCH (07:47)
[2018-05-23] MEDS: Aspirin Enteric Coated 81 MG Tablet PO SCH (07:47)
[2018-05-23] MEDS: Acetaminophen 325 MG TABLET PO PRN ×2 (07:47→14:34)
[2018-05-23] MEDS: KRILL OIL 1000 MG PO SCH (07:48)
[2018-05-23] MEDS: (Cinnamon Bark [Cinnamon] 1,000 MG) PO SCH (07:48)
[2018-05-23] MEDS: CALCIUM CARB PO SCH ×2 (07:49→17:33)
[2018-05-23] MEDS: MINERALS PO SCH ×2 (07:49→17:33)
[2018-05-23] MEDS: VIT D3 PO SCH ×2 (07:49→17:33)
[2018-05-23] MEDS ORDERED: *HR* LORazepam 0.5 MG TABLET PO ONE (08:15)
[2018-05-23] MEDS: hydrALAZINE 10 MG TABLET PO SCH (08:32)
[2018-05-23] MEDS: Fluticasone Propionate Nasal 50 MCG/SPRAY BOTTLE NS SCH ×2 (08:32→19:52)
[2018-05-23] MEDS ORDERED: Mag Hydrox/Al Hydrox/Simeth 30 ML UDC PO ONE ×2 (11:57→14:36)
[2018-05-23] MEDS: Insulin LISPRO 300 UNITS/3 ML VIAL SQ SCH ×2 (12:34→17:38)
[2018-05-23] MEDS ORDERED: BREXPIPRAZOLE 1.5 MG PO SCH (14:30)
[2018-05-23] MEDS: BREXPIPRAZOLE 1.5 MG PO SCH (15:09)
--- NOTE | 2018-05-23 15:50 | Event Note ---
Date of Encounter: 05/23/18 Time of Encounter: 10:20 Mr Pratt presented to ED with chronic fatigue (since diagnosis of chronic hyponatremia) and new generalized weakness. He reports low energy and denies focal muscle weakness. 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 He feels weakness is somewhat improved today. He has a history of anxiety and is feeling generally anxious today Denies fevers, chills, nausea, emesis, lehtargy or confusion. No muscle jerks or cramping. gen- awake, alert, nad cv- regular rate and rhythm, normal S1S2, no murmurs, rubs or gallops appreciated lungs- ctabl, no wheezing, rales or rhonchi, normal resp effort on room air neuro - aaox3, CN grossly intact, no focal deficits, motor strength 5/5 in all extremities skin- warm, dry, normal color Regrding hyponatremia, Na is up to 128, baseline, was 126 on admit -hold further ivfs and recheck bmp this afternoon -if he does not maintain baseline this admission will consult his nephro team Fatigue/Generalized weakness Possibly related to chronic hyponatremia, na on admit 126 which should not cause his profound low energy No suspected infectious process at this time tsh wnl, trop wnl, no other metabolic disturbance to acount non focal neuro exam will get pt eval Anxiety Hx -cont home buspar, rexalti, lexapro HTN -monitor off ivf -cont po hydralazine, losartan -prn IV hydralazine DM -SSI and accu checks vte ppx heparin sc
[2018-05-23 17:54] LABS: BUN/Creatinine Ratio 11 (6-26); Blood Urea Nitrogen 9 mg/dL (8-23); Calcium 9.6 mg/dL (8.6-10.3); Carbon Dioxide 20 mEq/L (23-29); Chloride 96 mEq/L (98-107); Glucose 165 mg/dL (70-105); Osmolality,Calculated 266 (280-300); Potassium 4.5 mEq/L (3.5-5.1); Sodium 127 mEq/L (136-145); eGFR For Non-African Americans > 60 (> 60)
[2018-05-23] MEDS ORDERED: Ibuprofen 400 MG TABLET PO ONE (18:48)
[2018-05-23] MEDS ORDERED: traZODone 50 MG TABLET PO SCH (21:00)
[2018-05-23] MEDS: *HR* Heparin 5,000 UNIT/ML VIAL SQ SCH (22:09)
[2018-05-24 01:49] LABS: BUN/Creatinine Ratio 11 (6-26); Blood Urea Nitrogen 9 mg/dL (8-23); Calcium 9.4 mg/dL (8.6-10.3); Carbon Dioxide 24 mEq/L (23-29); Chloride 97 mEq/L (98-107); Glucose 112 mg/dL (70-105); Osmolality,Calculated 267 (280-300); Potassium 4.6 mEq/L (3.5-5.1); Sodium 129 mEq/L (136-145); eGFR For Non-African Americans > 60 (> 60)
[2018-05-24] MEDS: *HR* Heparin 5,000 UNIT/ML VIAL SQ SCH (04:25)
[2018-05-24] MEDS: Insulin LISPRO 300 UNITS/3 ML VIAL SQ SCH ×2 (07:49→12:57)
[2018-05-24] MEDS: BREXPIPRAZOLE 1.5 MG PO SCH (07:52)
[2018-05-24] MEDS: Aspirin Enteric Coated 81 MG Tablet PO SCH (07:52)
[2018-05-24] MEDS: Fluticasone Propionate Nasal 50 MCG/SPRAY BOTTLE NS SCH (07:53)
[2018-05-24] MEDS: VIT D3 PO SCH (07:54)
[2018-05-24] MEDS: KRILL OIL 1000 MG PO SCH (07:54)
[2018-05-24] MEDS: CALCIUM CARB PO SCH (07:54)
[2018-05-24] MEDS: Vitamin B Complex/Vit C/Vit E 1 EACH TABLET PO SCH (07:54)
[2018-05-24] MEDS: MINERALS PO SCH (07:54)
[2018-05-24] MEDS: (Cinnamon Bark [Cinnamon] 1,000 MG) PO SCH (07:54)
--- NOTE | 2018-05-24 08:37 | Internal Med Progress Note ---
Hospitalist Progress Note - Encounter Date of Encounter: 05/25/18 Time of Encounter: 09:00 (see dc summary, prog note entered in error) - Subjective Interval History: Please disregard this progress note and see discharge summary 05/24 - Exam Vitals: Temp Pulse Resp BP Pulse Ox 97.5 F L 65 18 128/77 95 05/24/18 06:34 05/24/18 06:34 05/24/18 06:34 05/24/18 06:34 05/24/18 06:34 Exam: please disregard this progress note and see dc summary for 05/24 - Assessment and Plan (1) Anxiety Status: Acute Assessment and Plan: Patient has a history of anxiety. continued home medications. (2) HTN (hypertension) Status: Chronic Assessment and Plan: Blood pressure elevated initially however patient reports anxiety especially after spending several hours in the ED. Improved off IVFs and improved anxiety. Cont home meds at [facility] (3) Hyponatremia Status: Chronic Assessment and Plan: progress note entered in error, see 05/24 dc summary - Time Spent with Patient Total time spent is greater than 50% in coordination of care (as documented) at patient's floor/unit and/or counseling patient: 25 - 35 minutes Plan of Care Discussed with: patient Internal Medicine: Result - Labs CBC & Chem 7: 05/23/18 01:30 05/24/18 00:54 Labs: BMP 05/23/18 05/24/18 12:50 00:54 Sodium 127 L 129 L Potassium 4.5 4.6 Chloride 96 L 97 L Carbon Dioxide 20 L 24 BUN 9 9 Creatinine 0.83 0.80 Glucose 165 H 112 H Calcium 9.6 9.4 - ABG Interpretation ABG results: PT/INR, D-dimer PT 13.1 Seconds (9.4-12.1) H 05/22/18 19:12 Consult Discharge Plan - Plan Additional Instructions: PLEASE ATTEND ALL FOLLOW UP APPOINTMENTS SCHEDULED. PLEASE CALL YOU PCP, CALL OR GO TO THE NEAREST EMERGENCY ROOM IF SYMPTOMS RETURN OR WORSEN, OR WITH ANY CONCERNS. Referrals: Enmanuel York MD [Partnered Physician] - 06/06/18 1:00 pm Linden Pritchard MD [Partnered Physician] - 05/30/18 3:10 pm Brandon Case DO [Partnered Physician] - 06/06/18 2:00 pm Krissy Rai DO [Primary Care Provider] - 08/29/18 10:15 am Jina Brennan MD [Partnered Physician] - 07/17/18 10:40 am Bruno Carpenter DO [Partnered Physician] - 06/03/18 11:15 am (2) HTN (hypertension) Qualifiers: Hypertension type: unspecified Qualified Code(s): I10 - Essential (primary) hypertension
[2018-05-24] MEDS: hydrALAZINE 10 MG TABLET PO SCH (09:13)
[2018-05-24 10:49] VITALS: BP 146/85
--- NOTE | 2018-05-24 12:50 | Discharge Summary ---
- NOTES TO OUTPATIENT PROVIDER Notes to Outpatient Provider: Presented with worsened generalized fatigue. No changes to his home sodium were made. Na at ma was 129. Admitting Na 126. No other metabolic disturbances, no anemia, tsh wnl, troponin negative. Generalized fatigue improved with IVFs only. Rec to follow up with Dr Pritchard for additional work up and treatment of hyponatremia. No changes were made to any home meds. Intermittent elevated BPs and will require outpt follow up for HTN Date of Encounter: 05/24/18 Time of Encounter: 10:30 - Discharge Diagnosis (1) Anxiety Priority: Secondary Status: Acute Assessment and Plan: Patient has a history of anxiety. continued home medications. (2) HTN (hypertension) Priority: Secondary Status: Chronic Assessment and Plan: Blood pressure elevated initially however patient reports anxiety especially after spending several hours in the ED. Improved off IVFs and improved anxiety. Cont home meds at ma Qualifiers: Hypertension type: unspecified Qualified Code(s): I10 - Essential (primary ) hypertension (3) Hyponatremia Priority: Secondary Status: Chronic Assessment and Plan: Chronic hyponatremia with sodium running in the mid 120s. Patient has been compliant with his sodium tablets. Furthermore, he has had outpatient workup for his hyponatremia with nephrology. Urine osmolality order was attempted however was told that it would be a send out. Urine sodium was also ordered which was greater than 40. Given that the patient looked euvolemic and has a normal TSH, patient may have SIADH; less likely glucocorticoid deficiency given the patient's blood pressure and normal potassium. At this time his hyponatremia is chronic and patient has had workup done with nephrology as an outpatient. -admitting Na 126, dc Na 129. Pt notes this is what his most recent check was as an outpt -no changes to home sodium tabs made -fu with Dr Pritchard as soon as possible as an outpt for further management and work up (4) Generalized weakness Priority: Primary Status: Resolved Assessment and Plan: Generalized fatigue and lack of energy most likely secondary to poor by mouth intake. Unclear whether his chronic hyponatremia is a contributing component. Admitting Na was only slightly lower than his report of most recents -His neurologic exam was benign. -Patient has no evidence of an infection. Chest x-ray unremarkable. -trop neg -tsh wnl -symptoms improved to baseline with only gentle IVFs -on day of dc he ambulated unit with nursing without issue Hospital course: Mr. Pratt is a 72 year old male who presented with worsened generalized fatigue from baseline. He had no focal deficits or other symptoms, generally felt he was fatiguing with exertion more quickly than he usually does. He has known chronic hyponatremia being closely followed outpt by nephrology. Baseline appears to be mids 120s, most recently 129. His work up was largely unremarkable including Na level near baseline 125, tsh wnl, trop neg, no metabolic disturbance, no signs or symptoms of infectious process. His symptoms resolved with only IVFs and he felt back to baseline, ambulating the unit with nursing without difficulty. He was dc to home in stable ocndiition with outpt follow up with pcp and nephro for chronic conditions and further work up as needed. Discharge discussed with: patient - Time Spent with Patient Total time spent providing and/or coordinating discharge services: Less than 30 minutes - Discharge Medications Home Medications: Cinnamon Bark [Cinnamon] 1,000 mg PO DAILY 04/23/15 [History] Vitamin B Complex 1 tab PO DAILY 04/23/15 [History] Aspirin Enteric Coated [Aspirin EC] 81 mg PO DAILY tablet. 04/24/15 [Rx] Krill/Om-3/Dha/Epa/Phospho/Ast [Krill Oil 1,000 mg Softgel] 1,000 mg PO DAILY [History] Atorvastatin [Lipitor] 10 mg PO HS 03/17/18 [History] Buspirone HCl [Buspar] 10 mg PO TID PRN 03/17/18 [History] Calcium Carb/Vit D3/Minerals [Ra Calcium 600-Minerals Tab] 1 tab PO BIDWM [History] Fluticasone Propionate Nasal [Flonase] 1 spr NS BID 03/17/18 [History] Losartan [Cozaar] 25 mg PO DAILY 03/17/18 [History] Metformin HCl [Glucophage] 1,000 mg PO BID 03/17/18 [History] Turmeric Root Extract [Turmeric] 1,053 mg PO DAILY 03/17/18 [History] traZODone [TraZODone] 50 mg PO HS 14 Days #14 tablet 03/21/18 [Rx] Escitalopram [Lexapro] 10 mg PO DAILY 05/22/18 [History] Tamsulosin [Flomax] 0.4 mg PO BID 05/22/18 [History] Brexpiprazole [Rexulti] 1.5 mg PO DAILY 05/23/18 [History] Sodium Chloride [Sodium Chloride Tab] 1 gm PO DAILY 05/23/18 [History] Allergies/Adverse Reactions: 3 Allergy/AdvReac Type Severity Reaction Status Date / Time No Known Allergies Allergy Verified 04/12/18 18:28 Date of admission: 05/23/18 11:39 Primary care physician: Sina Negron Discharging clinician: Dawna Fagan - Constitutional Vitals: Temp Pulse Resp BP Pulse Ox 97.8 F 54 18 146/85 95 05/24/18 10:47 05/24/18 10:47 05/24/18 10:47 05/24/18 10:47 05/24/18 10:47 Exam: General: Alert and oriented 3; lying in bed in no acute distress HEENT:EOM intact, pupils equal, round Cardiovascular:regular rate and rhythm, Normal S1 & S2, no rubs, murmurs or gallops. No JVD. No le edema Lungs:Normal breath sounds, no wheezes or crackles. normal resp effort on room air Abdomen:Soft, non distended, non-tender, + bs Extremities:No deformity, no edema or tenderness, no joint swelling or clubbing. Neurological:Normal cognition; cranial nerves II through XII intact; muscle strength 5 out of 5 bilaterally in the lower extremities; 5 out of 5 in the upper extremities. Sensation intact to light touch - Patient Status Disposition: Home, Self-Care Condition: Good Functional capacity at discharge: independent ambulation Overall status at discharge: patient is back to baseline - Discharge Instructions Follow Up With: Lindne Pritchard MD [Partnered Physician] - Krissy Rai DO [Primary Care Provider] - - Diet and Activity Activity: resume usual activities as tolerated Diet: advance to your usual diet
--- NOTE | 2018-05-27 10:59 | Electrocardiograph Report ---
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
== END 2018-05-24 14:41 | disposition home or self-care (01) | DRG 641 ==
LOC: 3NENU 18:50 → EMEROOARM 18:50 → SUATTDRO 21:39 → 3NENU 23:25
PROVIDERS: ADMIT Internal Medicine; ATTEND Internal Medicine

== ENCOUNTER 2019-03-02 19:49 | Observation (INO) ==
--- NOTE | 2019-03-02 20:02 | Emergency Department Note ---
Disposition Clinical Impression: Weakness Disposition: Admitted As Inpatient Condition: Fair Forms: ED Satisfaction Letter Time of Disposition: 23:06 General Adult HPI - General Time Seen by Provider: 03/02/19 19:57 Source: patient Mode of arrival: EMS Limitations: no limitations Nursing Notes Reviewed: Yes Vital Signs Reviewed: Yes - History of Present Illness HPI Narrative: Patient is a 73-year-old male who is presenting with weakness and instability. Patient with known history of hypertension, hyperlipidemia as well as hyponatremia. He does not that he has had to be admitted. In the past for hyponatremia with some or symptoms. He states that over the past week and half he has had progressive worsening of instability and weakness. He also states that at times he will feel somewhat confused. He does live at home with his at baseline. He notes that approximately one week ago he was walking down the stairs felt unstable and did fall onto his left hip. He states that this time he has had pain to the left hip as well as pain with ambulation. He denies any history of fracture to the left hip or history of surgery. Patient has not had any current blood thinner. He denies hitting his head or loss of consciousness during this fall. He has no had no further falls since this time. Patient states that he also has occasional chest pain and palpitations without shortness of breath. He does not have dizziness or lightheadedness. No abdominal pain, nausea or vomiting. He denies any focal weakness, numbness or tingling, no vision changes. - Related Data Home Medications Medication Instructions Recorded Confirmed Cinnamon Bark [Cinnamon] 1,000 mg PO DAILY 04/23/15 02/22/19 Vitamin B Complex 1 tab PO DAILY 04/23/15 02/22/19 Atorvastatin [Lipitor] 10 mg PO HS 03/17/18 02/22/19 Calcium Carb/Vit D3/Minerals [Ra 1 tab PO BIDWM 03/17/18 02/22/19 Calcium 600-Minerals Tab] Tamsulosin [Flomax] 0.4 mg PO DAILY 05/22/18 02/22/19 Brexpiprazole [Rexulti] 1.5 mg PO DAILY 05/23/18 02/22/19 Sodium Chloride [Sodium Chloride 1 gm PO BID 05/23/18 02/22/19 Tab] BuPROPion XL (24 HR) [Wellbutrin 150 mg PO QAM 02/05/19 02/22/19 Xl] Buspirone HCl [Buspar] 15 mg PO PRN PRN 02/05/19 02/22/19 Ferrous Sulfate 325 mg PO DAILY 02/05/19 02/22/19 Fluticasone Propionate Nasal 1 spray NS BID 02/05/19 02/22/19 [Flonase] LORazepam [Lorazepam] 2 mg PO TID PRN 02/05/19 02/22/19 Losartan Potassium 50 mg PO QAM 02/05/19 02/22/19 Metformin HCl [Fortamet] 500 mg PO TIDWM 02/05/19 02/22/19 Previous Rx's Medication Instructions Recorded traZODone [TraZODone] 50 mg PO HS 14 Days #14 tablet 03/21/18 Allergies Allergy/AdvReac Type Severity Reaction Status Date / Time No Known Allergies Allergy Verified 02/22/19 13:51 All systems ED: reviewed and negative except as stated. Review of Systems: As Per HPI Constitutional: Reports: weakness. Denies: fever, chills ENT ED: Denies: congestion Cardiovascular: Reports: chest pain, palpitations. Denies: dyspnea on exertion, syncope Respiratory: Reports: dyspnea. Denies: cough, wheezes Gastrointestinal: Denies: abdominal pain, nausea, vomiting Genitourinary: Denies: urgency, dysuria Musculoskeletal: Denies: back pain Integumentary: Denies: rash Neurological: Reports: weakness, confusion. Denies: headache, numbness, paresthesias Endocrine: Reports: fatigue Past Medical History - Past Medical History Medical history: Reports: diabetes, glaucoma, hypertension Surgical history: Reports: appendectomy, cataract, other Psychiatric history: Reports: anxiety, depression, previous psychiatric hospitalization - Social History Smoking Status: Former smoker Smokeless Tobacco Status: No Alcohol use: Reports: none Drug use: Reports: none Physical Exam - General Limitations: no limitations General appearance: alert, in no apparent distress - Head Head exam: atraumatic, normocephalic, normal inspection - Eye Eye exam: Present: normal appearance, PERRL, EOMI - ENT ENT exam: normal exam, normal oropharynx, mucous membranes moist - Neck Neck exam: Present: normal inspection, full ROM, trachea midline - Chest Chest inspection: Present: normal inspection, symmetric chest wall rise - Respiratory Respiratory exam: Present: normal lung sounds bilaterally - Cardiovascular Cardiovascular exam: Present: regular rate, normal rhythm, normal heart sounds - Abdominal Exam Abdominal exam: Present: soft, Non-Tender. Absent: tenderness, distention, guarding, rebound, rigidity - Extremities Exam Extremities exam: Present: normal capillary refill, other (Patient with a small ecchymotic bruised the left lateral buttocks, with decreased range of motion to the left hip only secondary to pain, no tenderness to palpation to the pelvis, or the lower leg as well as thigh. Patient has sensation as well as pulses intact distally.). Absent: pedal edema, calf tenderness - Back Exam Back exam: Present: normal inspection, full ROM. Absent: tenderness - Neurological Exam Neurological exam: Present: alert, oriented X3 - Expanded Neurological Exam Patient oriented to: Present: person, place, time Speech: Present: fluid speech Cranial nerves: EOM function (II, III, IV, ): Normal, facial sensation (V): Normal, facial palsy (VII): Normal, spinal accessory function (XI): Normal, tongue deviation (XII): Normal Cerebellar function: finger to nose: Normal Motor strength - LUE: 5/5 Motor strength - RUE: 5/5 Motor strength - LLE: 5/5 Motor strength - RLE: 5/5 Upper motor neuron exam: pronator drift: Absent bilaterally Sensory exam upper extremity: light touch: Normal Sensory exam lower extremity: light touch: Normal Coma Scale Eye Opening: Spontaneous Coma Scale Motor Response: Obeys Commands Coma Scale Verbal Response: Confused Coma Scale Total: 14 - Psychiatric Psychiatric exam: Present: normal affect, normal mood - Skin Skin exam: Present: warm, dry, intact, normal color. Absent: rash, diaphoresis Course Vital Signs Temperature 97.8 F 03/02/19 19:50 Pulse Rate 85 03/02/19 19:50 Respiratory Rate 16 03/02/19 19:50 Blood Pressure 110/85 03/02/19 19:50 O2 Sat by Pulse Oximetry 94 03/02/19 19:50 Temperature 97.8 F 03/02/19 19:50 Pulse Rate 85 03/02/19 19:50 Respiratory Rate 16 03/02/19 19:50 Blood Pressure 110/85 03/02/19 19:50 O2 Sat by Pulse Oximetry 94 03/02/19 19:50 Oxygen Delivery Oxygen Delivery Room Air Medical Decision Making - MDM Narrative Medical decision making narrative: Patient is a 73-year-old male who is presenting with instability and chest pain. Patient is alert and oriented 3 with a GCS of 14. No neurological deficits on examination. Given concern for intra-cranial, cardiac as well as history of hyponatremia, CBC, BMP as well as troponin, EKG chest x-ray and CT of the head performed. This patient has recently had a fall with left hip pain, a AP pelvis x-ray will be performed. Patient was given 500 mL normal saline bolus with CBC as well as BMP relatively unremarkable. Patient's calcium is mildly elevated at 10.4. Tachycardia secondary to prostate cancer. Troponin is within normal limits. EKG shows no acute ischemic changes. Chest x-ray shows no acute intracardiac or pulmonary process. CT of the head shows no acute intracranial change. No acute fractures the AP pelvis. Patient as well as are in the room, discussed admission to the hospital. They stated they agree at this point in time as patient continues to have intermittent chest pain with instability. No past medical history of coronary artery disease or family history of cardiac disease. Patient has a heart score of 3. However in light of chest pain as well as weakness and instability as wel l as reported confusion per and patient, feels though admission at this time would be most appropriate. Patient did try to ambulate and he states that he felt as though he was unable to keep his balance. I did speak with the hospitalist admit her, that they have accepted the patient. Patient will be admitted. - Medical Records Medical records reviewed: Yes I reviewed the patient's medical records. - Lab Data Lab results reviewed: Yes I reviewed the patient's lab results. Result diagrams: 03/02/19 20:15 03/02/19 20:15 Lab Results 03/02/19 03/02/19 03/02/19 Range/Units 20:15 20:15 22:40 WBC 6.7 (4.3-11.1) K/mcL RBC 4.33 (4.19-5.50) M/mcL Hgb 14.2 (12.9-16.9) g/dL Hct 42.2 (37.5-50.1) % MCV 97.5 (83.0-100.0) fL MCH 32.8 (28.0-33.3) pg MCHC 33.6 (31.6-35.5) g/dL RDW 13.0 (11.5-14.5) % Plt Count 211 (140-400) K/mcL MPV 9.4 (9.4-12.4) fL Immature Gran % 0.3 (0-4) % Seg Neutrophils % 67.8 % Lymphocytes % 20.4 % Monocytes % 9.4 % Eosinophils % 1.5 % Basophils % 0.6 % Neutrophils # 4.5 (1.6-8.9) K/mcL Lymphocytes # 1.4 (0.6-4.6) K/mcL Monocytes # 0.6 (0.0-1.3) K/mcL Eosinophils # 0.1 (0.0-0.6) K/mcL Basophils # 0.0 (0.0-0.2) K/mcL Sodium 139 (136-145) mEq/L Potassium 4.3 (3.5-5.1) mEq/L Chloride 107 (98-107) mEq/L Carbon Dioxide 24 (23-29) mEq/L BUN 21 (8-23) mg/dL Creatinine 0.93 (0.70-1.30) mg/dL Est GFR ( Amer) > 60 (> 60) Est GFR (Non-Af Amer) > 60 (> 60) BUN/Creatinine Ratio 23 (6-26) Glucose 101 (70-105) mg/dL Calculated Osmolality 291 (280-300) Calcium 10.4 H (8.6-10.3) mg/dL Troponin I < 0.03 (< 0.04) ng/mL Urine Color Yellow (Yellow) Urine Clarity Clear (Clear) Urine pH 5.0 (5.0-8.0) pH Units Ur Specific [place] 1.013 (1.010-1.025) Urine Protein Trace (Neg-Trace) mg/dL Urine Glucose (UA) Normal (Normal) mg/dL Urine Ketones 40 H (Negative) mg/dL Urine Blood Negative (Negative) Urine Nitrite Negative (Negative) Urine Bilirubin Small H (Negative) Urine Urobilinogen Normal (Normal) mg/dL Ur Leukocyte Esterase Negative (Negative) - Radiology Data Radiology results reviewed: Yes I reviewed the patient's radiology results. Chest X-Ray 03/02/19 20:10 IMPRESSION: No acute cardiopulmonary abnormality. D/ / Henry Conti MD / Henry Conti MD Interpreting Provider: Henry Conti MD Head CT 03/02/19 20:10 IMPRESSION: No acute intracranial abnormality. Senescent changes including chronic microvascular change. Sizable polyp retention cyst in the right maxillary sinus. D/ / Kristen Dela Cruz MD / Kristen Dela Cruz MD Interpreting Provider: Kristen Dela Cruz MD Pelvis X-Ray 03/02/19 20:43 IMPRESSION: No acute osseous abnormality of the pelvis. D/ / Les Alas MD / Les Alas MD Interpreting Provider: Les Alas MD - EKG Data EKG #1 EKG attestation: Yes I reviewed and interpreted this EKG. EKG results narrative: EKG performed at 1959 with ventricular rate of 84, regular rhythm, left axis deviation, LVH, no ST segment elevation, depression.
[2019-03-02] MEDS ORDERED: 0.9 % Sodium Chloride 500 ML IVC ONE (20:11)
--- NOTE | 2019-03-02 20:13 | Emergency Department Note ---
Disposition Clinical Impression: Weakness Disposition: Admitted As Inpatient Time of Disposition: 20:13 General Adult HPI - General Chief complaint: ED Weakness Time Seen by Provider: 03/02/19 19:57 Source: patient, EMS Limitations: no limitations Nursing Notes Reviewed: Yes Vital Signs Reviewed: Yes - History of Present Illness HPI Narrative: Attestation note: Patient was seen with the emergency medicine resident/nurse practitioner /physician assistant manager trainee/transitional resident/medical student: Dr. KOKO VASQUEZ. I was present for the significant portions of the performance and interpretation of procedures and EKGs. I have personally performed a face to face evaluation on this patient. I have reviewed and agree with history and physical examination patient management and disposition. 3-year-old male by EMS for confusion and weakness. Patient had a mechanical fall seen in the past for this history of hyponatremia denies chest pain nausea vomiting fever chills slight ecchymosis on his posterior left thigh. Patient is slightly slow in responding but follows commands no slurred speech and age of 1 patient will undergo imaging and blood work and EKG. With admission anticipated. Disposition pending. Pain Scale: 0 - Related Data Home Medications Medication Instructions Recorded Confirmed Cinnamon Bark [Cinnamon] 1,000 mg PO DAILY 04/23/15 02/22/19 Vitamin B Complex 1 tab PO DAILY 04/23/15 02/22/19 Atorvastatin [Lipitor] 10 mg PO HS 03/17/18 02/22/19 Calcium Carb/Vit D3/Minerals [Ra 1 tab PO BIDWM 03/17/18 02/22/19 Calcium 600-Minerals Tab] Tamsulosin [Flomax] 0.4 mg PO DAILY 05/22/18 02/22/19 Brexpiprazole [Rexulti] 1.5 mg PO DAILY 05/23/18 02/22/19 Sodium Chloride [Sodium Chloride 1 gm PO BID 05/23/18 02/22/19 Tab] BuPROPion XL (24 HR) [Wellbutrin 150 mg PO QAM 02/05/19 02/22/19 Xl] Buspirone HCl [Buspar] 15 mg PO PRN PRN 02/05/19 02/22/19 Ferrous Sulfate 325 mg PO DAILY 02/05/19 02/22/19 Fluticasone Propionate Nasal 1 spray NS BID 02/05/19 02/22/19 [Flonase] LORazepam [Lorazepam] 2 mg PO TID PRN 02/05/19 02/22/19 Losartan Potassium 50 mg PO QAM 02/05/19 02/22/19 Metformin HCl [Fortamet] 500 mg PO TIDWM 02/05/19 02/22/19 Previous Rx's Medication Instructions Recorded traZODone [TraZODone] 50 mg PO HS 14 Days #14 tablet 03/21/18 Allergies Allergy/AdvReac Type Severity Reaction Status Date / Time No Known Allergies Allergy Verified 02/22/19 13:51 Past Medical History - Past Medical History Medical history: Reports: cancer, diabetes, glaucoma, hypertension Surgical history: Reports: appendectomy, cataract, other Psychiatric history: Reports: anxiety, depression, previous psychiatric hospitalization - Social History Smoking Status: Former smoker Smokeless Tobacco Status: No Alcohol use: Reports: none Drug use: Reports: none Physical Exam - General Limitations: no limitations General appearance: alert, in no apparent distress, lethargic Course Vital Signs Temperature 97.8 F 03/02/19 19:50 Pulse Rate 85 03/02/19 19:50 Respiratory Rate 16 03/02/19 19:50 Blood Pressure 110/85 03/02/19 19:50 O2 Sat by Pulse Oximetry 94 03/02/19 19:50 Temperature 97.8 F 03/02/19 19:50 Pulse Rate 85 03/02/19 19:50 Respiratory Rate 16 03/02/19 19:50 Blood Pressure 110/85 03/02/19 19:50 O2 Sat by Pulse Oximetry 94 03/02/19 19:50 Oxygen Delivery Oxygen Delivery Room Air
[2019-03-02 20:41] LABS: Basophils % 0.6 %; Eosinophils # 0.1 K/mcL (0.0-0.6); Eosinophils % 1.5 %; Hematocrit 42.2 % (37.5-50.1); Hemoglobin 14.2 g/dL (12.9-16.9); Immature Granulocytes % 0.3 % (0-4); Lymphocytes # 1.4 K/mcL (0.6-4.6); Lymphocytes % 20.4 %; Mean Corpuscular HGB Conc 33.6 g/dL (31.6-35.5); Mean Corpuscular Hemoglobin 32.8 pg (28.0-33.3); Mean Corpuscular Volume 97.5 fL (83.0-100.0); Mean Platelet Volume 9.4 fL (9.4-12.4); Monocytes # 0.6 K/mcL (0.0-1.3); Monocytes % 9.4 %; Neutrophils # 4.5 K/mcL (1.6-8.9); Platelet Count 211 K/mcL (140-400); Red Blood Count 4.33 M/mcL (4.19-5.50); Segmented Neutrophils % 67.8 %; White Blood Count 6.7 K/mcL (4.3-11.1)
[2019-03-02 21:02] LABS: BUN/Creatinine Ratio 23 (6-26); Blood Urea Nitrogen 21 mg/dL (8-23); Calcium 10.4 mg/dL (8.6-10.3); Carbon Dioxide 24 mEq/L (23-29); Chloride 107 mEq/L (98-107); Glucose 101 mg/dL (70-105); Osmolality,Calculated 291 (280-300); Potassium 4.3 mEq/L (3.5-5.1); Sodium 139 mEq/L (136-145); Troponin I < 0.03 ng/mL (< 0.04); eGFR For African Americans > 60 (> 60); eGFR For Non-African Americans > 60 (> 60)
[2019-03-02 22:51] LABS: Bilirubin,Urine Small (Negative); Blood,Urine Negative (Negative); Clarity,Urine Clear (Clear); Color,Urine Yellow (Yellow); Glucose,Urine (UA) Normal (Normal); Ketones,Urine 40 mg/dL (Negative); Leukocyte Esterase,Urine Negative (Negative); Nitrite,Urine Negative (Negative); Protein,Urine Trace mg/dL (Neg-Trace); Specific Gravity,Urine 1.013 (1.010-1.025); Urobilinogen,Urine Normal (Normal)
[2019-03-03] MEDS ORDERED: Naloxone 0.4 MG/ML INJ IVP PRN (03:16)
[2019-03-03] MEDS ORDERED: D5% in Water 1,000 ML IVC PRN (03:26)
[2019-03-03] MEDS ORDERED: Dextrose Gel 15 GM/37.5 ML TUBE PO PRN ×2 (03:26)
[2019-03-03] MEDS ORDERED: *HR* Dextrose 50 % in Water (Syg) 50 ML SYRINGE IVP PRN (03:26)
--- NOTE | 2019-03-03 04:38 | Internal Med History&Physical ---
Date of Encounter: 03/03/19 Time of Encounter: 02:46 Internal Medicine - H&P: HPI Chief complaint: Weakness Admitted From: Emergency Dept Plans for Post Hospital Care: Home History of present illness: Mr. Pratt is a 73 year old male Patient presented to the emergency room with weakness and unsteadiness on his feet. He says that this has been going on for the past year as he has been dealing with hyponatremia. He has fallen multiple times in the past week, once walking down the stairs and once walking through his house and tripping on a rug. He most recently fell onto his left hip resulting in pain. He has also been experiencing increased shortness of breath as well. In the emergency room patient's initial vital signs were within normal limits CBC and BMP both within normal limits Initial troponin undetectable Urinalysis negative for infection Head CT: No acute intracranial abnormality Chest x-ray: No acute cardiopulmonary abnormality Pelvis x-ray: No acute osseous abnormality EKG normal sinus rhythm no ischemic changes In the emergency room patient received 500 mL bolus of normal saline and was admitted to the hospital for further management. Upon my evaluation, patient is resting comfortably in the hospital bed in no acute distress. He denies chest pain, abdominal pain, nausea, vomiting, diarrhea and constipation. He denies vision changes and hitting his head when he falls. He denies tremors. He has a past medical history of diabetes which has been well controlled. He was experiencing chest pain intermittently but it has been going on for the past week or so. He has a family history of lung cancer in his father and his mother recently of old age. He is full code. Past Med Surg Social Fam HX - Past Medical History Medical history: cancer, diabetes, glaucoma, hypertension Additional medical history: cataracts, diverticulitis, colon rupture during colonoscopy Psychiatric history: anxiety, depression, previous psychiatric hospitalization - Past Surgical History Surgical History: appendectomy, cataract, other Additional surgical history: colon resection, colonscopy - Social History Smoking Status: Former smoker Smokeless Tobacco Status: No Alcohol use: none Drug use: none - Family History Mother Adopted: No Living Status: Hx Family Cardiac Disorders: Yes Hx Family Respiratory Disorders: No Hx Family Cancer: No Hx Family GI Disorders: No Hx Family Endocrine Disorder: No Hx Family Neuromuscular Disorders: Yes (Stroke) Hx Family Neurologic Disorders: No Hx Family HEENT Disorders: No Hx Family Autoimmune Disorders: No Internal Medicine - H&P: Meds Cinnamon Bark [Cinnamon] 1,000 mg PO DAILY 04/23/15 [History] Vitamin B Complex 1 tab PO DAILY 04/23/15 [History] Atorvastatin [Lipitor] 10 mg PO HS 03/17/18 [History] Calcium Carb/Vit D3/Minerals [Ra Calcium 600-Minerals Tab] 1 tab PO BIDWM 03/17/18 [History] traZODone [TraZODone] 50 mg PO HS 14 Days #14 tablet 03/21/18 [Rx] Tamsulosin [Flomax] 0.4 mg PO DAILY 05/22/18 [History] Brexpiprazole [Rexulti] 1.5 mg PO DAILY 05/23/18 [History] Sodium Chloride [Sodium Chloride Tab] 2 gm PO BID 05/23/18 [History] BuPROPion XL (24 HR) [Wellbutrin Xl] 150 mg PO QAM 02/05/19 [History] Buspirone HCl [Buspar] 15 mg PO PRN PRN 02/05/19 [History] Ferrous Sulfate 325 mg PO DAILY 02/05/19 [History] Fluticasone Propionate Nasal [Flonase] 1 spray NS BID 02/05/19 [History] LORazepam [Lorazepam] 2 mg PO TID PRN 02/05/19 [History] Losartan Potassium 50 mg PO QAM 02/05/19 [History] Metformin HCl [Fortamet] 500 mg PO TIDWM 02/05/19 [History] Allergy/AdvReac Type Severity Reaction Status Date / Time No Known Allergies Allergy Verified 02/22/19 13:51 All Systems PM: A 10-system review of systems was performed and is negative for pertinent findings except as documented above in the HPI. - Constitutional Vitals: Temp Pulse Resp BP Pulse Ox 97.6 F 77 17 119/77 94 03/03/19 02:13 03/03/19 02:13 03/03/19 02:13 03/03/19 02:13 03/03/19 02:13 General appearance: Present: cooperative, A&O X 3, pleasant, no acute distress, answers questions appropriately Exam: - - Head Head exam: Present: normal inspection - Eye Eye exam: Present: EOMI, normal appearance - Neck Neck exam general surgery: Present: full ROM - Respiratory Respiratory exam: Present: CTAB. Absent: rales, respiratory distress, rhonchi, wheezes - Cardiovascular Cardiovascular exam: Present: irregular rhythm. Absent: diastolic murmur, systolic murmur Additional comments: Patient not in atrial fibrillation but heart rate is a regular - GI/Abdominal GI/Abdominal exam: Present: normal bowel sounds, soft. Absent: tenderness - Extremities Exam Extremities exam: Present: warm, radial pulses palpable and symmetrical. Absent: calf tenderness, pedal edema, tenderness - Neurological Exam Neurological exam: Present: no focal deficits, strengths equal and symetr throughout. Absent: motor sensory deficit, facial droop, speech deficit - Skin Skin exam: Present: dry, normal color, warm Internal Med - H&P Results - Labs CBC & Chem 7: 03/02/19 20:15 03/02/19 20:15 Labs: Short CBC 03/02/19 Range/Units 20:15 WBC 6.7 (4.3-11.1) K/mcL Hgb 14.2 (12.9-16.9) g/dL Hct 42.2 (37.5-50.1) % Plt Count 211 (140-400) K/mcL Neutrophils # 4.5 (1.6-8.9) K/mcL BMP 03/02/19 20:15 Sodium 139 Potassium 4.3 Chloride 107 Carbon Dioxide 24 BUN 21 Creatinine 0.93 Glucose 101 Calcium 10.4 H Cardiac Enzymes 03/02/19 03/03/19 Range/Units 20:15 03:07 Troponin I < 0.03 < 0.03 (< 0.04) ng/mL Urine 03/02/19 Range/Units 22:40 Urine Color Yellow (Yellow) Urine Clarity Clear (Clear) Urine pH 5.0 (5.0-8.0) pH Units Ur Specific [place] 1.013 (1.010-1.025) Urine Protein Trace (Neg-Trace) mg/dL Urine Glucose (UA) Normal (Normal) mg/dL - Impressions ITS Impressions Chest X-Ray 03/02/19 20:10 IMPRESSION: No acute cardiopulmonary abnormality. D/ / Henry Conti MD / Henry Conti MD Interpreting Provider: Henry Conti MD Head CT 03/02/19 20:10 IMPRESSION: No acute intracranial abnormality. Senescent changes including chronic microvascular change. Sizable polyp retention cyst in the right maxillary sinus. D/ / Kristen Dela Cruz MD / Kristen Dela Cruz MD Interpreting Provider: Kristen Dela Cruz MD Pelvis X-Ray 03/02/19 20:43 IMPRESSION: No acute osseous abnormality of the pelvis. D/ / Les Alas MD / Les Alas MD Interpreting Provider: Les Alas MD - Assessment and Plan (1) Generalized weakness Current Visit: Yes Status: Acute Assessment and plan: Patient has had falls at home. Has history of alcoholism, hyponatremia, as well as diabetes. Sodium and glucose levels within normal limits. Patient denies recent alcohol use. Physical exam 5 out of 5 in all extremities. Patient also appears to have an arrhythmia on telemetry. Continue cardiac monitoring Physical therapy and occupational therapy consult Echocardiogram in the morning (2) Falls Current Visit: Yes Status: Acute Assessment and plan: Patient had a recent fall, injuring his left hip. X-rays showed no signs of fracture. Continue to monitor PT OT consult in the morning Qualifiers: Encounter type: initial encounter Qualified Code(s): W19.XXXA - Unspecified fall, initial encounter (3) Chest pain Current Visit: No Status: Acute Assessment and plan: Patient currently denies chest pain, troponins undetectable, and EKG is nonischemic. He does however appear to have an arrhythmia on telemetry. Physical exam also demonstrated this. Continue to trend troponins Cardiac monitoring Echocardiogram in the morning Qualifiers: Chest pain type: other chest pain Qualified Code(s): R07.89 - Other chest pain; R07.8 - Other chest pain (4) Diabetes Current Visit: Yes Status: Acute Assessment and plan: Patient is not an insulin dependent diabetic Monitor sugars ACHS Diabetic diet Low dose insulin sliding scale as needed Hold home meds. Qualifiers: Diabetes mellitus type: type 2 Diabetes mellitus fdc insulin use: without fdc use Diabetes mellitus complication status: without c omplication Qualified Code(s): E11.9 - Type 2 diabetes mellitus without c omplications (5) History of alcohol abuse Current Visit: Yes Status: Acute Assessment and plan: Patient does not report recent drinking, but has been admitted to the hospital for alcohol to intoxication in the past. No tremor on exam or other signs of withdrawal. Patient has history of hyponatremia likely exacerbated by his alcohol use but this admission his sodium was within normal limits. Continue to monitor CIWA protocol if withdrawal suspected (6) DVT prophylaxis Current Visit: Yes Status: Acute Assessment and plan: Subcutaneous heparin - Time Spent With Patient Total time spent is greater than 50% in coordination of care (as documented) at patient's floor/unit and/or counseling patient: Greater than 35 minutes
[2019-03-03] MEDS ORDERED: *HR* Heparin 5,000 UNIT/ML VIAL SQ SCH (06:00)
--- NOTE | 2019-03-03 08:11 | Event Note ---
<Dawna Fagan - Last Filed: 03/03/19 13:28> Date of Encounter: 03/03/19 I examined this patient and my medical decision-making was reviewed with the Resident Physician Dr Ferreira. I agree with the documented findings, disposition and treatment plan as described except to the extent set forth below. Mr Pratt is being observed for generalized weakness, frequent falls at home awake, stating he is very anxious and needing his benzo. Has anxiety at baseline and medications at home for years. He has been "very stressed" as just moved yesterday. Agreeable to benzo being ordered however he requires up on ly with assistance and fall precautions due to falls at home and observation for weakness. He states his weakness and general lack of energy have been a problem for sometime. he always has low energy, but weakness comes and goes. Denies ever having focal deficits, numbness, tingling or pace/vision or speak changes. he assumed his sodium would be low as in the past as the cause of his current sxs but it was normal. He is considering leaving the hospital AMA due to wanting to get back to his new house and do work. Encouraged to stay for PT eval and echo. He is considering this. Will notify staff of any changes. Pt gave very different story to resident focusing on presenting to ED due to chest pain, also noting how stressed he has been gen- alert, awake,appears stated age cv- reg rate and rhythm, normal s1,s2, no murmurs appreciated, no le edema lungs- ctabl, no wheezing, rhonchi or crackles neuro- AAOx3, CN grossly intact, strength 5/5 and sensation intact to lt touch and equal in all ext. Chest Pain, resolved, atypical -awaiting echo, otherwise ischemic work up is negative Generalized Weakness -no infection, metabolic or neuroligc finding to indicate etiology, given chest pain over last week, echo is pending -requires a pt eval prior to discharge given hx of multiple falls Chronic hyponatremia- normal sodium level here further dx and plan as noted by resident <Beatrice Ferreira - Last Filed: 03/03/19 15:28> Date of Encounter: 03/03/19 Time of Encounter: 10:35 Patient was seen and examined at bedside. He was alert and oriented resting comfortably in bed. He denied having chest pain, palpitations, fever, chills, shortness of breath. Patient reported he initially presented to hospital due to chest pain. He believed his chest pain was due to stress as he takes Ativan for his anxiety. He reported he had called his psychiatrist whom told him they would lower his Ativan dose. He has been under a lot of stress lately. He reports having chronic weakness. His only complaints is that he is going to leave the hospital at 3 PM whether or not his echocardiogram and other tests are done and even if before PT/OT has evaluated him and his chronic weakness that he was concerned about. Gen.: Vitals noted. No acute distress. AAOx3 HEENT: oropharynx clear, Normocephalic, atraumatic Cardiac: RRR, no murmur, +S1/S2 Pulmonary: CTA bilaterally, no wheezes, rales or rhonchi, equal chest expansion Abdomen: soft, nontender, Bowel sounds noted, no guarding MSK: ROM intact, no joint swelling noted Extremities: no BLE edema, nontender calf, no cyanosis or clubbing Neuro: A&Ox3, moves all extremities, no focal deficits Psych: Appropriate mood and behavior Chest pain -atypical chest pain. Pressure like an in the center of his chest lasting 10 minutes. Not exertional. Not relieved by rest. No family history of cardiac disease. No personal history of CAD. -Troponin negative -EKG showing no ST or T wave changes indicating ischemia -continue cardiac monitoring -echocardiogram completed however the patient left AMA prior to the the reading and final result by the upholstery bundler. -continue atorvastatin Generalized weakness -patient reported having chronic weakness, subsequently he reports having a fall at home recently. -Electrolytes were WNL -PT/OT to evaluate however the patient left AMA prior to PT/OT's evaluation. Falls -patient reported a recent fall and hurt his left hip. -Chest x-ray and pelvis x-ray showed no evidence of fracture -PT/OT ordered Diabetes -history of diabetes that is not insulin-dependent -continue with Accu check them diabetic diet -low dose sliding scale insulin History of alcohol abuse -history of alcohol abuse however he is now in AA. He is sober and no longer drink alcohol. -Continue to monitor DVT prophylaxis heparin SQ
[2019-03-03] MEDS: Insulin LISPRO 300 UNITS/3 ML VIAL SQ SCH ×2 (08:44→12:44)
[2019-03-03 08:59] LABS: Hematocrit 40.6 % (37.5-50.1); Hemoglobin 13.7 g/dL (12.9-16.9); Mean Corpuscular HGB Conc 33.7 g/dL (31.6-35.5); Mean Corpuscular Hemoglobin 33.1 pg (28.0-33.3); Mean Corpuscular Volume 98.1 fL (83.0-100.0); Mean Platelet Volume 9.4 fL (9.4-12.4); Platelet Count 203 K/mcL (140-400); Red Blood Count 4.14 M/mcL (4.19-5.50); Red Cell Distribution Width 13.2 % (11.5-14.5); White Blood Count 6.1 K/mcL (4.3-11.1)
[2019-03-03] MEDS ORDERED: BuPROPion XL (24 HR) 150 MG TABLET PO SCH (09:00)
[2019-03-03 09:09] LABS: BUN/Creatinine Ratio 21 (6-26); Blood Urea Nitrogen 17 mg/dL (8-23); Calcium 9.5 mg/dL (8.6-10.3); Carbon Dioxide 25 mEq/L (23-29); Chloride 108 mEq/L (98-107); Glucose 115 mg/dL (70-105); Osmolality,Calculated 286 (280-300); Sodium 137 mEq/L (136-145); eGFR For African Americans > 60 (> 60); eGFR For Non-African Americans > 60 (> 60)
[2019-03-03] MEDS ORDERED: BUSPIRONE HCL 10 MG TABLET PO PRN (10:07)
[2019-03-03 11:54] VITALS: BP 160/98
[2019-03-03] MEDS ORDERED: *HR* LORazepam 1 MG TABLET PO PRN (12:02)
--- NOTE | 2019-03-03 15:20 | Discharge Summary ---
- NOTES TO OUTPATIENT PROVIDER Notes to Outpatient Provider: left hospital AMA. presented with intermittent chest pain and generalized weakness. He would benefit from outpt echo, possibly stress test and Physical therapy. EKG and trop were unremarkable here. 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 Pratt is a 73 year old male with pmhx HTN, DM, Hyponatremia, prior etoh use, anxiety on higher dose benzos by his psychiatrist, chronic reports of intermittent generalized weakness and chronic fatigue. He presented to ED from home where he was in process of moving to a new home, with generalized weakness and fatigue. He also reported chest pain. His accounts of chest pain varied among various providers he spoke to -intermittent over a week vs one episode yesterday that was fleeting. On all accounts without associated symptoms. He was being observed for this chest pain and generalized weakness with reported multiple falls at home. His work up that was completed included an EKG without ischemic changes and serial trops negative. His cbc and bmp were unremarkable. He had ordered echocardiogram, tele monitoring and PT evaluation. He decided to leave hospital AMA bc he wanted to get back home to [facility]. Lengthy discussion regarding him being a fall risk, particularly on benzos as he is prescribed and encouraged inpt pt eval. He voiced he would consider statying, but then left AMA later in day. - Time Spent with Patient Total time spent providing and/or coordinating discharge services: - Discharge Medications Prescriptions: No Action Cinnamon Bark [Cinnamon] 1,000 mg PO DAILY Vitamin B Complex 1 tab PO DAILY Calcium Carb/Vit D3/Minerals [Ra Calcium 600-Minerals Tab] 1 tab PO BIDWM Atorvastatin [Lipitor] 10 mg PO HS traZODone [TraZODone] 50 mg PO HS 14 Days #14 tablet Tamsulosin [Flomax] 0.4 mg PO DAILY Sodium Chloride [Sodium Chloride Tab] 2 gm PO BID Brexpiprazole [Rexulti] 1.5 mg PO DAILY BuPROPion XL (24 HR) [Wellbutrin Xl] 150 mg PO QAM Buspirone HCl [Buspar] 15 mg PO PRN PRN PRN Reason: ANXIETY ATTACK Ferrous Sulfate 325 mg PO DAILY Fluticasone Propionate Nasal [Flonase] 1 spray NS BID LORazepam [Lorazepam] 2 mg PO TID PRN PRN Reason: Anxiety Losartan Potassium 50 mg PO QAM Metformin HCl [Fortamet] 500 mg PO TIDWM Home Medications: Cinnamon Bark [Cinnamon] 1,000 mg PO DAILY 04/23/15 [History] Vitamin B Complex 1 tab PO DAILY 04/23/15 [History] Atorvastatin [Lipitor] 10 mg PO HS 03/17/18 [History] Calcium Carb/Vit D3/Minerals [Ra Calcium 600-Minerals Tab] 1 tab PO BIDWM 03/17/18 [History] traZODone [TraZODone] 50 mg PO HS 14 Days #14 tablet 03/21/18 [Rx] Tamsulosin [Flomax] 0.4 mg PO DAILY 05/22/18 [History] Brexpiprazole [Rexulti] 1.5 mg PO DAILY 05/23/18 [History] Sodium Chloride [Sodium Chloride Tab] 2 gm PO BID 05/23/18 [History] BuPROPion XL (24 HR) [Wellbutrin Xl] 150 mg PO QAM 02/05/19 [History] Buspirone HCl [Buspar] 15 mg PO PRN PRN 02/05/19 [History] Ferrous Sulfate 325 mg PO DAILY 02/05/19 [History] Fluticasone Propionate Nasal [Flonase] 1 spray NS BID 02/05/19 [History] LORazepam [Lorazepam] 2 mg PO TID PRN 02/05/19 [History] Losartan Potassium 50 mg PO QAM 02/05/19 [History] Metformin HCl [Fortamet] 500 mg PO TIDWM 02/05/19 [History] Allergies/Adverse Reactions: 3 Allergy/AdvReac Type Severity Reaction Status Date / Time No Known Allergies Allergy Verified 02/22/19 13:51 Date of admission: 03/03/19 00:25 Primary care physician: Sina Negron Consults: 03/03/19 03:19 Consult to Occupational Therapy [CONS] Routine Comment: Evaluate, develop and implement POC Reason for Consult: Weakness, falls at home Does patient have active BEDREST order?: No Is patient medically & hemodynamically stable?: Yes Patient assessed for mobility or mobilized this visit?: No Consult to Physical Therapy [CONS] Routine Comment: Evaluate, develop and implement POC Reason for Consult: Weakness, falls at home Does patient have active BEDREST order?: No Is patient medically & hemodynamically stable?: Yes Patient assessed for mobility or mobilized this visit?: No - Constitutional Vitals: Temp Pulse Resp BP Pulse Ox 97.9 F 70 18 160/98 95 03/03/19 11:53 03/03/19 11:53 03/03/19 11:53 03/03/19 11:53 03/03/19 11:53 General appearance: Present: cooperative, A&O X 3, pleasant, no acute distress, answers questions appropriately Exam: gen- alert, awake,appears stated age cv- reg rate and rhythm, normal s1,s2, no murmurs appreciated, no le edema lungs- ctabl, no wheezing, rhonchi or crackles neuro- AAOx3, CN grossly intact, strength 5/5 and sensation intact to lt touch and equal in all ext. - Patient Status Disposition: Left Against Medical Advice Condition: Fair - Discharge Instructions Follow Up With: Krissy Rai DO [Primary Care Provider] - (Appt has been requested. )
[2019-03-03] MEDS ORDERED: Insulin LISPRO 300 UNITS/3 ML VIAL SQ SCH (21:00)
--- NOTE | 2019-03-06 16:35 | Electrocardiograph Report ---
[place] [id number] Test Date: 2019-03-02 Pat Name: Guanako Pratt Department: [id number] Room: 3B23 Gender: M Network Engineer: : [id number] Requested By: Ginette Archuleta Order Number: [id number] Reading MD: Mae Case Measurements Intervals [place] Rate: 84 P: 25 IN: 149 QRS: -35 QRSD: 86 T: 46 QT: 355 QTc: 420 Interpretive Statements Sinus rhythm Multiple premature complexes, vent & supraven Left ventricular hypertrophy Electronically Signed On 03-06-2019 16:34:12 EDT by Mae Case
== END 2019-03-03 15:22 | disposition left against medical advice (07) ==
LOC: EMEROOARM 19:49 → 3BNU 19:49 → SUATTDRO 03-03 00:25 → 3BNU 03-03 01:59
PROVIDERS: ADMIT Internal Medicine; ATTEND Internal Medicine

== ENCOUNTER 2021-03-05 17:47 | Observation (INO) ==
[2021-03-05 18:36] LABS: Basophils % 0.5 %; Eosinophils # 0.1 K/mcL (0.0-0.6); Eosinophils % 2.5 %; Hematocrit 39.6 % (37.5-50.1); Hemoglobin 13.4 g/dL (12.9-16.9); Immature Granulocytes % 0.4 % (0-4); Lymphocytes # 1.4 K/mcL (0.6-4.6); Lymphocytes % 25.1 %; Mean Corpuscular HGB Conc 33.8 g/dL (31.6-35.5); Mean Corpuscular Hemoglobin 32.1 pg (28.0-33.3); Mean Corpuscular Volume 94.7 fL (83.0-100.0); Mean Platelet Volume 9.4 fL (9.4-12.4); Monocytes # 0.6 K/mcL (0.0-1.3); Monocytes % 10.4 %; Neutrophils # 3.5 K/mcL (1.6-8.9); Platelet Count 191 K/mcL (140-400); Red Blood Count 4.18 M/mcL (4.19-5.50); Segmented Neutrophils % 61.1 %; White Blood Count 5.7 K/mcL (4.3-11.1)
[2021-03-05 18:57] LABS: BUN/Creatinine Ratio 17 (6-26); Blood Urea Nitrogen 13 mg/dL (8-23); Calcium 9.7 mg/dL (8.6-10.3); Carbon Dioxide 24 mEq/L (23-29); Chloride 98 mEq/L (98-107); Glucose 121 mg/dL (70-105); Osmolality,Calculated 271 (280-300); Potassium 3.9 mEq/L (3.5-5.1); Sodium 130 mEq/L (136-145); Troponin I < 0.03 ng/mL (< 0.04); eGFR For African Americans > 60 (> 60); eGFR For Non-African Americans > 60 (> 60)
[2021-03-05] MEDS ORDERED: Isovue-370 500 ML BOTTLE IVP ONE (22:24)
[2021-03-05 22:45] LABS: Bilirubin,Urine Negative (Negative); Blood,Urine Negative (Negative); Clarity,Urine Clear (Clear); Color,Urine Light-Yellow (Yellow); Glucose,Urine (UA) Normal (Normal); Ketones,Urine Negative (Negative); Leukocyte Esterase,Urine Negative (Negative); Nitrite,Urine Negative (Negative); Protein,Urine Negative (Neg-Trace); Specific Gravity,Urine 1.011 (1.010-1.025); Urobilinogen,Urine Normal (Normal)
[2021-03-05] MEDS ORDERED: Ondansetron 4 MG/2 ML VIAL IVP PRN (23:29)
[2021-03-05] MEDS ORDERED: Acetaminophen 325 MG TABLET PO PRN (23:29)
[2021-03-05] MEDS ORDERED: Naloxone 0.4 MG/ML INJ IVP PRN (23:29)
[2021-03-05] MEDS ORDERED: traZODone 50 MG TABLET PO SCH (23:30)
[2021-03-05] MEDS ORDERED: D5% in Water 1,000 ML IVC PRN (23:32)
[2021-03-05] MEDS ORDERED: Dextrose Gel 15 GM/37.5 ML TUBE PO PRN ×2 (23:32)
[2021-03-05] MEDS ORDERED: *HR* Dextrose 50 % in Water (Vial) 50 ML VIAL IVP PRN (23:32)
[2021-03-05] MEDS: *HR* LORazepam 1 MG TABLET PO PRN (23:43)
[2021-03-05] MEDS ORDERED: Insulin LISPRO 300 UNITS/3 ML VIAL SUBQ SCH (23:45)
[2021-03-05] MEDS: Artificial Tears SOLN 15 ML BOTTLE BOTH EYES SCH (23:45)
[2021-03-06 00:32] LABS: Hemoglobin 14.4 g/dL (12.9-16.9); Mean Corpuscular HGB Conc 35.1 g/dL (31.6-35.5); Mean Corpuscular Hemoglobin 33.4 pg (28.0-33.3); Mean Corpuscular Volume 95.1 fL (83.0-100.0); Mean Platelet Volume 9.4 fL (9.4-12.4); Platelet Count 201 K/mcL (140-400); Red Blood Count 4.31 M/mcL (4.19-5.50); Red Cell Distribution Width 12.1 % (11.5-14.5); White Blood Count 5.2 K/mcL (4.3-11.1)
[2021-03-06 00:43] LABS: INR 1.1; Prothrombin Time 12.4 Seconds (9.4-12.1)
[2021-03-06 00:45] LABS: Activated Partial Thrombo Time 27.2 Seconds (26.0-36.0)
[2021-03-06 00:54] LABS: BUN/Creatinine Ratio 16 (6-26); Blood Urea Nitrogen 12 mg/dL (8-23); Calcium 9.4 mg/dL (8.6-10.3); Carbon Dioxide 22 mEq/L (23-29); Chloride 98 mEq/L (98-107); Cholesterol 149 mg/dL (< 200); Ethanol < 10 mg/dL (Less than 10); Glucose 131 mg/dL (70-105); HDL Cholesterol 49 mg/dL (40-59); LDL Cholesterol,Calculated 81 mg/dL (< 100); Magnesium 2.1 mg/dL (1.6-2.6); Osmolality,Calculated 270 (280-300); Phosphorous 3.2 mg/dL (2.7-4.5); Potassium 3.8 mEq/L (3.5-5.1); Sodium 129 mEq/L (136-145); Triglycerides 95 mg/dL (< 150); eGFR For African Americans > 60 (> 60); eGFR For Non-African Americans > 60 (> 60)
[2021-03-06 01:09] LABS: Thyroid Stimulating Hormone 3.854 mcIU/mL (0.340-5.600)
[2021-03-06 01:12] LABS: Estimated Average Glucose 128 mg/dl; Hemoglobin A1C 6.1 %
[2021-03-06 01:22] LABS: Folate > 22.3 ng/mL (3.0-16.0); Vitamin B12 802 pg/mL (250-1100); Vitamin D 25 Hydroxy 58 ng/mL (30-80)
[2021-03-06] MEDS ORDERED: Insulin LISPRO 300 UNITS/3 ML VIAL SUBQ SCH (07:30)
[2021-03-06] MEDS ORDERED: Multivit/Ca/Min/Fe/FA 1 TAB TABLET PO SCH (08:00)
[2021-03-06] MEDS: Artificial Tears SOLN 15 ML BOTTLE BOTH EYES SCH (08:27)
[2021-03-06 08:45] VITALS: BP 147/87
[2021-03-06] MEDS: *HR* LORazepam 1 MG TABLET PO PRN (08:46)
[2021-03-06] MEDS ORDERED: BuPROPion XL (24 HR) 150 MG TABLET PO SCH (09:00)
[2021-03-06] MEDS ORDERED: Fluticasone Propionate Nasal 50 MCG/SPRAY BOTTLE NS SCH (09:00)
[2021-03-06] MEDS ORDERED: Aspirin Enteric Coated 81 MG Tablet PO SCH (09:00)
[2021-03-06] MEDS ORDERED: (Brexpiprazole [Rexulti] 1 MG Tablet) PO SCH (09:00)
== END 2021-03-06 11:34 | disposition home or self-care (01) ==
LOC: 3BNU 17:47 → EMEROOARM 17:47 → SUATTDRO 19:50 → 3ANU 19:53
PROVIDERS: ADMIT Student in an Organized Health Care Education/Training Program; ATTEND Family Medicine

== ENCOUNTER 2022-04-08 12:49 | Observation (INO) ==
[2022-04-08 13:11] LABS: Basophils % 0.4 %; Eosinophils # 0.1 K/mcL (0.0-0.6); Eosinophils % 1.6 %; Hematocrit 39.1 % (37.5-50.1); Hemoglobin 13.4 g/dL (12.9-16.9); Immature Granulocytes % 0.2 % (0-4); Lymphocytes # 0.8 K/mcL (0.6-4.6); Lymphocytes % 15.9 %; Mean Corpuscular HGB Conc 34.3 g/dL (31.6-35.5); Mean Corpuscular Hemoglobin 31.4 pg (28.0-33.3); Mean Corpuscular Volume 91.6 fL (83.0-100.0); Mean Platelet Volume 8.5 fL (9.4-12.4); Monocytes # 0.6 K/mcL (0.0-1.3); Monocytes % 11.2 %; Neutrophils # 3.6 K/mcL (1.6-8.9); Platelet Count 198 K/mcL (140-400); Red Blood Count 4.27 M/mcL (4.19-5.50); Red Cell Distribution Width 13.3 % (11.5-14.5); Segmented Neutrophils % 70.7 %; White Blood Count 5.1 K/mcL (4.3-11.1)
[2022-04-08 14:10] LABS: Bilirubin,Urine Negative (Negative); Blood,Urine Negative (Negative); Clarity,Urine Clear (Clear); Color,Urine Light-Yellow (Yellow); Glucose,Urine (UA) Normal (Normal); Ketones,Urine Negative (Negative); Leukocyte Esterase,Urine Negative (Negative); Nitrite,Urine Negative (Negative); PH,Urine 7.5 pH Units (5.0-8.0); Protein,Urine Negative (Neg-Trace); Urobilinogen,Urine Normal (Normal)
[2022-04-08 14:35] LABS: Alanine Aminotransferase 22 Units/L (7-52); Albumin/Globulin Ratio 1.5 (1.1-2.2); Alkaline Phosphatase 43 Units/L (34-104); Aspartate Amino Transferase 38 Units/L (13-39); BUN/Creatinine Ratio 12 (6-26); Bilirubin,Total 0.4 mg/dL (0.3-1.0); Blood Urea Nitrogen 10 mg/dL (8-23); Calcium 8.9 mg/dL (8.6-10.3); Carbon Dioxide 24 mEq/L (23-29); Chloride 95 mEq/L (98-107); Globulin 2.6 g/dL (2.4-3.5); Glucose 103 mg/dL (70-105); Osmolality,Calculated 259 (280-300); Potassium 5.4 mEq/L (3.5-5.1); Sodium 125 mEq/L (136-145); Total Protein 6.6 g/dL (6.4-8.9); Troponin I < 0.03 ng/mL (< 0.04); eGFR For African Americans > 60 (> 60); eGFR For Non-African Americans > 60 (> 60)
[2022-04-08 14:47] LABS: Influenza A PCR Negative (Negative); Influenza B PCR Negative (Negative); Resp. Syncytial Virus PCR Negative (Negative)
[2022-04-08 15:14] LABS: SARS-CoV-2 by PCR (In House) Negative (Negative)
[2022-04-08 17:15] LABS: Uric Acid 4.1 mg/dL (2.3-7.6)
[2022-04-08] MEDS ORDERED: Ondansetron ODT 4 MG TAB.RAPDIS SL PRN (17:20)
[2022-04-08] MEDS ORDERED: Melatonin 3 MG TABLET PO PRN (17:20)
[2022-04-08] MEDS ORDERED: Acetaminophen 325 MG TABLET PO PRN (17:20)
[2022-04-08] MEDS ORDERED: Naloxone 0.4 MG/ML INJ IVP PRN (17:20)
[2022-04-08] MEDS ORDERED: D5% in Water 1,000 ML IVC PRN (17:22)
[2022-04-08] MEDS ORDERED: Dextrose Gel 15 GM/37.5 ML TUBE PO PRN ×2 (17:22)
[2022-04-08] MEDS ORDERED: *HR* Dextrose 50 % in Water (Syg) 50 ML SYRINGE IVP PRN (17:22)
[2022-04-08] MEDS ORDERED: Fluticasone Propionate Nasal 50 MCG/SPRAY BOTTLE NS PRN (17:27)
[2022-04-08 17:28] LABS: Thyroid Stimulating Hormone 1.709 mcIU/mL (0.340-5.600)
[2022-04-08] MEDS: *HR* LORazepam 1 MG TABLET PO SCH ×2 (18:44→21:59)
[2022-04-08] MEDS ORDERED: Insulin LISPRO 300 UNITS/3 ML VIAL SUBQ SCH (21:00)
[2022-04-08] MEDS ORDERED: *HR* LORazepam 1 MG TABLET PO SCH (21:00)
[2022-04-08] MEDS ORDERED: traZODone 50 MG TABLET PO SCH (21:00)
[2022-04-08] MEDS: QUEtiapine Fumarate 25 MG TABLET PO SCH (21:55)
[2022-04-08] MEDS: BuPROPion SR (12 HR) 100 MG TABLET PO SCH (21:55)
[2022-04-08 21:57] LABS: Estimated Average Glucose 126 mg/dl
[2022-04-08 22:39] LABS: BUN/Creatinine Ratio 12 (6-26); Blood Urea Nitrogen 10 mg/dL (8-23); Calcium 8.7 mg/dL (8.6-10.3); Carbon Dioxide 24 mEq/L (23-29); Chloride 99 mEq/L (98-107); Glucose 120 mg/dL (70-105); Osmolality,Calculated 266 (280-300); Potassium 4.1 mEq/L (3.5-5.1); Sodium 128 mEq/L (136-145); eGFR For African Americans > 60 (> 60); eGFR For Non-African Americans > 60 (> 60)
[2022-04-09 05:50] LABS: Basophils % 0.5 %; Eosinophils # 0.2 K/mcL (0.0-0.6); Eosinophils % 2.9 %; Hematocrit 40.6 % (37.5-50.1); Hemoglobin 13.7 g/dL (12.9-16.9); Immature Granulocytes % 0.5 % (0-4); Lymphocytes # 1.1 K/mcL (0.6-4.6); Mean Corpuscular HGB Conc 33.7 g/dL (31.6-35.5); Mean Corpuscular Hemoglobin 31.1 pg (28.0-33.3); Mean Corpuscular Volume 92.1 fL (83.0-100.0); Mean Platelet Volume 8.6 fL (9.4-12.4); Monocytes # 0.7 K/mcL (0.0-1.3); Monocytes % 12.1 %; Neutrophils # 3.9 K/mcL (1.6-8.9); Platelet Count 219 K/mcL (140-400); Red Blood Count 4.41 M/mcL (4.19-5.50); Red Cell Distribution Width 13.4 % (11.5-14.5)
[2022-04-09 06:08] LABS: BUN/Creatinine Ratio 9 (6-26); Blood Urea Nitrogen 9 mg/dL (8-23); Calcium 8.9 mg/dL (8.6-10.3); Carbon Dioxide 26 mEq/L (23-29); Chloride 98 mEq/L (98-107); Glucose 99 mg/dL (70-105); Magnesium 2.1 mg/dL (1.6-2.6); Osmolality,Calculated 269 (280-300); Phosphorous 4.2 mg/dL (2.7-4.5); Potassium 4.5 mEq/L (3.5-5.1); Sodium 130 mEq/L (136-145); eGFR For African Americans > 60 (> 60); eGFR For Non-African Americans > 60 (> 60)
[2022-04-09] MEDS ORDERED: *HR* LORazepam 0.5 MG TABLET PO ONE (06:13)
[2022-04-09] MEDS ORDERED: *HR* Heparin 5,000 UNIT/ML VIAL SQ SCH (08:15)
[2022-04-09] MEDS ORDERED: lisinopriL 5 MG TABLET PO SCH (09:00)
[2022-04-09] MEDS ORDERED: Loratadine 10 MG TABLET PO SCH (09:00)
[2022-04-09] MEDS ORDERED: Linaclotide [Linzess] 145 MCG Capsule PO SCH (09:00)
[2022-04-09] MEDS ORDERED: Finasteride 5 MG TABLET PO SCH (09:00)
[2022-04-09] MEDS ORDERED: Aspirin Enteric Coated 81 MG Tablet PO SCH (09:00)
[2022-04-09] MEDS: BuPROPion SR (12 HR) 100 MG TABLET PO SCH (09:29)
[2022-04-09] MEDS: QUEtiapine Fumarate 25 MG TABLET PO SCH ×2 (09:30→13:01)
[2022-04-09] MEDS: *HR* LORazepam 1 MG TABLET PO SCH ×2 (09:36→13:01)
[2022-04-09 11:42] VITALS: BP 126/87; PULSE 70; TEMP 98.1; O2SAT 96
[2022-04-09 15:26] LABS: Sodium, Urine 72.4 mEq/L
== END 2022-04-09 15:17 | disposition home health service (06) ==
LOC: 3NENU 12:49 → EMEROOARM 12:49 → SUATTDRO 16:51 → 3NENU 19:50
PROVIDERS: ADMIT Internal Medicine; ATTEND Internal Medicine

== ENCOUNTER 2022-04-26 09:51 | Observation (INO) ==
[2022-04-26 11:24] LABS: Bacteria,Urine Few per hpf (None-Few); Bilirubin,Urine Negative (Negative); Blood,Urine Large (Negative); Calcium Oxalate Crystals,Urine Present per hpf; Clarity,Urine Clear (Clear); Color,Urine Colorless (Yellow); Glucose,Urine (UA) Normal (Normal); Ketones,Urine Negative (Negative); Leukocyte Esterase,Urine Moderate (Negative); Mucus,Urine Few per lpf (None-Few); Nitrite,Urine Negative (Negative); PH,Urine 7.5 pH Units (5.0-8.0); Protein,Urine 30 mg/dL (Neg-Trace); RBC,Urine TNTC per hpf (0-3); Specific Gravity,Urine 1.007 (1.010-1.025); Urobilinogen,Urine Normal (Normal)
[2022-04-26 11:28] LABS: Basophils % 0.4 %; Eosinophils # 0.2 K/mcL (0.0-0.6); Eosinophils % 2.3 %; Hematocrit 35.4 % (37.5-50.1); Hemoglobin 11.8 g/dL (12.9-16.9); Immature Granulocytes % 0.3 % (0-4); Lymphocytes # 0.7 K/mcL (0.6-4.6); Lymphocytes % 9.6 %; Mean Corpuscular HGB Conc 33.3 g/dL (31.6-35.5); Mean Corpuscular Hemoglobin 31.1 pg (28.0-33.3); Mean Corpuscular Volume 93.4 fL (83.0-100.0); Mean Platelet Volume 9.2 fL (9.4-12.4); Monocytes # 0.7 K/mcL (0.0-1.3); Monocytes % 9.1 %; Neutrophils # 5.9 K/mcL (1.6-8.9); Platelet Count 265 K/mcL (140-400); Red Blood Count 3.79 M/mcL (4.19-5.50); Red Cell Distribution Width 13.9 % (11.5-14.5); Segmented Neutrophils % 78.3 %; White Blood Count 7.5 K/mcL (4.3-11.1)
[2022-04-26 11:40] LABS: Alanine Aminotransferase 10 Units/L (7-52); Albumin 3.4 g/dL (3.5-5.7); Albumin/Globulin Ratio 1.2 (1.1-2.2); Alkaline Phosphatase 46 Units/L (34-104); Aspartate Amino Transferase 13 Units/L (13-39); BUN/Creatinine Ratio 14 (6-26); Bilirubin,Total 0.4 mg/dL (0.3-1.0); Blood Urea Nitrogen 14 mg/dL (8-23); Calcium 8.8 mg/dL (8.6-10.3); Carbon Dioxide 27 mEq/L (23-29); Chloride 101 mEq/L (98-107); Globulin 2.8 g/dL (2.4-3.5); Glucose 117 mg/dL (70-105); Osmolality,Calculated 278 (280-300); Potassium 4.4 mEq/L (3.5-5.1); Sodium 133 mEq/L (136-145); Total Protein 6.2 g/dL (6.4-8.9); eGFR For African Americans > 60 (> 60); eGFR For Non-African Americans > 60 (> 60)
[2022-04-26 11:43] LABS: Troponin I 0.05 ng/mL (< 0.04)
[2022-04-26] MEDS ORDERED: Aspirin 325 MG TABLET PO ONE (13:29)
[2022-04-26] MEDS ORDERED: Ondansetron 4 MG/2 ML VIAL IVP PRN (14:11)
[2022-04-26] MEDS ORDERED: Naloxone 0.4 MG/ML INJ IVP PRN (14:11)
[2022-04-26] MEDS ORDERED: MOM Conc 10 ML UD.LIQ PO PRN (14:11)
[2022-04-26 15:23] LABS: Influenza A PCR Negative (Negative); Influenza B PCR Negative (Negative); Resp. Syncytial Virus PCR Negative (Negative)
[2022-04-26 15:32] LABS: SARS-CoV-2 by PCR (In House) Negative (Negative)
[2022-04-26 17:10] VITALS: O2SAT 95
[2022-04-26] MEDS: *HR* LORazepam 0.5 MG TABLET PO SCH ×2 (17:36→20:36)
[2022-04-26] MEDS: QUEtiapine Fumarate 25 MG TABLET PO SCH ×2 (17:36→20:36)
[2022-04-26] MEDS: BuPROPion SR (12 HR) 100 MG TABLET PO SCH ×2 (17:37→20:39)
[2022-04-26] MEDS ORDERED: traZODone 50 MG TABLET PO SCH ×2 (21:00)
[2022-04-27 03:09] LABS: Basophils % 0.6 %; Eosinophils # 0.3 K/mcL (0.0-0.6); Eosinophils % 3.7 %; Immature Granulocytes % 0.3 % (0-4); Lymphocytes # 1.4 K/mcL (0.6-4.6); Mean Corpuscular HGB Conc 33.3 g/dL (31.6-35.5); Mean Corpuscular Hemoglobin 30.8 pg (28.0-33.3); Mean Corpuscular Volume 92.3 fL (83.0-100.0); Monocytes # 0.7 K/mcL (0.0-1.3); Monocytes % 9.8 %; Neutrophils # 4.4 K/mcL (1.6-8.9); Platelet Count 276 K/mcL (140-400); Red Cell Distribution Width 13.7 % (11.5-14.5); Segmented Neutrophils % 65.6 %; White Blood Count 6.7 K/mcL (4.3-11.1)
[2022-04-27 03:19] LABS: BUN/Creatinine Ratio 13 (6-26); Blood Urea Nitrogen 14 mg/dL (8-23); Calcium 8.8 mg/dL (8.6-10.3); Carbon Dioxide 25 mEq/L (23-29); Chloride 104 mEq/L (98-107); Glucose 102 mg/dL (70-105); Osmolality,Calculated 281 (280-300); Potassium 4.1 mEq/L (3.5-5.1); Sodium 135 mEq/L (136-145); eGFR For African Americans > 60 (> 60); eGFR For Non-African Americans > 60 (> 60)
[2022-04-27] MEDS ORDERED: Fluticasone Propionate Nasal 50 MCG/SPRAY BOTTLE NS PRN (07:50)
[2022-04-27] MEDS ORDERED: Hyoscyamine SL 0.125 MG TAB.SUBL SL PRN (07:50)
[2022-04-27] MEDS: *HR* LORazepam 0.5 MG TABLET PO SCH ×2 (08:52→13:28)
[2022-04-27] MEDS: QUEtiapine Fumarate 25 MG TABLET PO SCH ×2 (08:52→13:27)
[2022-04-27] MEDS ORDERED: Finasteride 5 MG TABLET PO SCH (09:00)
[2022-04-27] MEDS ORDERED: lisinopriL 5 MG TABLET PO SCH (09:00)
[2022-04-27] MEDS ORDERED: Aspirin Enteric Coated 81 MG Tablet PO SCH (09:00)
[2022-04-27] MEDS ORDERED: Psyllium 1 PACKET POWD.PACK PO SCH (09:00)
[2022-04-27] MEDS ORDERED: *HR* Metformin 500 MG TABLET PO SCH (09:00)
[2022-04-27] MEDS ORDERED: Loratadine 10 MG TABLET PO SCH (09:00)
[2022-04-27] MEDS: BuPROPion SR (12 HR) 100 MG TABLET PO SCH (09:03)
[2022-04-27 09:16] VITALS: BP 157/83; PULSE 64; TEMP 97.8
[2022-04-27] MEDS ORDERED: Melatonin 3 MG TABLET PO SCH (21:00)
== END 2022-04-27 15:19 | disposition home health service (06) ==
LOC: EMEROOARM 09:51 → 3ANU 09:51
PROVIDERS: ADMIT Internal Medicine; ATTEND Internal Medicine

== ENCOUNTER 2022-05-02 03:56 | Inpatient (IN) ==
[2022-05-02] MEDS ORDERED: *HR* FentaNYL (PF) 100 MCG/2 ML VIAL IVP ONE (04:48)
[2022-05-02 05:44] LABS: Basophils % 0.4 %; Eosinophils # 0.2 K/mcL (0.0-0.6); Hematocrit 31.2 % (37.5-50.1); Immature Granulocytes % 0.4 % (0-4); Lymphocytes # 0.5 K/mcL (0.6-4.6); Lymphocytes % 6.4 %; Mean Corpuscular HGB Conc 33.3 g/dL (31.6-35.5); Mean Corpuscular Hemoglobin 30.2 pg (28.0-33.3); Mean Corpuscular Volume 90.7 fL (83.0-100.0); Mean Platelet Volume 9.2 fL (9.4-12.4); Monocytes # 0.7 K/mcL (0.0-1.3); Monocytes % 9.1 %; Neutrophils # 6.2 K/mcL (1.6-8.9); Platelet Count 256 K/mcL (140-400); Red Blood Count 3.44 M/mcL (4.19-5.50); Red Cell Distribution Width 13.6 % (11.5-14.5); Segmented Neutrophils % 81.7 %; White Blood Count 7.6 K/mcL (4.3-11.1)
[2022-05-02 05:45] LABS: Hemoglobin 10.4 g/dL (12.9-16.9)
[2022-05-02 05:47] LABS: Calcium 8.8 mg/dL (8.6-10.3); Potassium 4.5 mEq/L (3.5-5.1)
[2022-05-02] MEDS ORDERED: Lidocaine Jelly 6ml 1 APPL/6 ML JEL.PF.APP MM ONE (08:14)
[2022-05-02] MEDS ORDERED: Naloxone 0.4 MG/ML INJ IVP PRN (09:58)
[2022-05-02] MEDS ORDERED: D5% in Water 1,000 ML IVC PRN (10:12)
[2022-05-02] MEDS ORDERED: *HR* Dextrose 50 % in Water (Syg) 50 ML SYRINGE IVP PRN (10:12)
[2022-05-02] MEDS ORDERED: Dextrose Gel 15 GM/37.5 ML TUBE PO PRN ×2 (10:12)
[2022-05-02] MEDS: Ondansetron 4 MG/2 ML VIAL IVP PRN (10:22)
[2022-05-02] MEDS: Acetaminophen 325 MG TABLET PO PRN ×3 (10:22→21:23)
[2022-05-02] MEDS: lisinopriL 5 MG TABLET PO SCH (11:51)
[2022-05-02] MEDS: Finasteride 5 MG TABLET PO SCH (11:52)
[2022-05-02] MEDS: Aspirin Enteric Coated 81 MG Tablet PO SCH (11:53)
[2022-05-02] MEDS: cefTRIAXone 1,000 MG in 0.9 % Sodium Chloride 10 ML IVP SCH (11:54)
[2022-05-02] MEDS: 0.9 % Sodium Chloride 1,000 ML IVC SCH ×2 (11:56→18:44)
[2022-05-02] MEDS: *HR* LORazepam 1 MG TABLET PO SCH ×3 (12:05→21:24)
[2022-05-02] MEDS: Ketorolac 30 MG/ML VIAL IVP PRN ×2 (12:50→18:41)
[2022-05-02] MEDS: QUEtiapine Fumarate 25 MG TABLET PO SCH ×2 (15:11→21:24)
[2022-05-02] MEDS: traZODone 50 MG TABLET PO SCH (21:23)
[2022-05-03 06:04] LABS: Mean Corpuscular HGB Conc 32.5 g/dL (31.6-35.5); Mean Corpuscular Hemoglobin 30.5 pg (28.0-33.3); Mean Corpuscular Volume 93.8 fL (83.0-100.0); Mean Platelet Volume 9.3 fL (9.4-12.4); Platelet Count 217 K/mcL (140-400); Red Blood Count 2.56 M/mcL (4.19-5.50); White Blood Count 5.4 K/mcL (4.3-11.1)
[2022-05-03 06:06] LABS: Hemoglobin 7.8 g/dL (12.9-16.9)
[2022-05-03 06:40] LABS: Calcium 7.8 mg/dL (8.6-10.3); Magnesium 2.2 mg/dL (1.6-2.6); Phosphorous 4.4 mg/dL (2.7-4.5); Potassium 4.9 mEq/L (3.5-5.1)
[2022-05-03] MEDS: Aspirin Enteric Coated 81 MG Tablet PO SCH (09:01)
[2022-05-03] MEDS: *HR* LORazepam 1 MG TABLET PO SCH ×3 (09:01→16:37)
[2022-05-03] MEDS: lisinopriL 5 MG TABLET PO SCH (09:02)
[2022-05-03] MEDS: QUEtiapine Fumarate 25 MG TABLET PO SCH ×3 (09:02→21:23)
[2022-05-03] MEDS: Finasteride 5 MG TABLET PO SCH (09:02)
[2022-05-03] MEDS: Ketorolac 30 MG/ML VIAL IVP PRN ×2 (09:03→21:23)
[2022-05-03] MEDS: cefTRIAXone 1,000 MG in 0.9 % Sodium Chloride 10 ML IVP SCH (09:03)
[2022-05-03] MEDS: polyethylene glycoL 3350 17 GM POWD.PACK PO SCH ×2 (09:06→09:20)
[2022-05-03] MEDS: Linaclotide [Linzess] 145 MCG Capsule PO SCH (09:06)
[2022-05-03] MEDS: 0.9 % Sodium Chloride 1,000 ML IVC SCH ×2 (09:08→17:53)
[2022-05-03] MEDS: Ondansetron 4 MG/2 ML VIAL IVP PRN ×2 (09:08→14:17)
[2022-05-03] MEDS ORDERED: D5% in Water 1,000 ML IVC PRN (10:15)
[2022-05-03] MEDS ORDERED: *HR* Dextrose 50 % in Water (Syg) 50 ML SYRINGE IVP PRN (10:15)
[2022-05-03] MEDS ORDERED: Dextrose Gel 15 GM/37.5 ML TUBE PO PRN ×2 (10:15)
[2022-05-03] MEDS: Insulin LISPRO 300 UNITS/3 ML VIAL SUBQ SCH ×2 (12:35→16:22)
[2022-05-03 15:20] LABS: Basophils % 0.6 %; Eosinophils # 0.4 K/mcL (0.0-0.6); Eosinophils % 7.1 %; Hematocrit 23.9 % (37.5-50.1); Hemoglobin 7.9 g/dL (12.9-16.9); Immature Granulocytes % 0.4 % (0-4); Lymphocytes # 1.1 K/mcL (0.6-4.6); Lymphocytes % 22.4 %; Mean Corpuscular HGB Conc 33.1 g/dL (31.6-35.5); Mean Corpuscular Hemoglobin 31.3 pg (28.0-33.3); Mean Corpuscular Volume 94.8 fL (83.0-100.0); Mean Platelet Volume 9.2 fL (9.4-12.4); Monocytes # 0.5 K/mcL (0.0-1.3); Monocytes % 9.6 %; Platelet Count 214 K/mcL (140-400); Red Blood Count 2.52 M/mcL (4.19-5.50); Red Cell Distribution Width 14.1 % (11.5-14.5); Segmented Neutrophils % 59.9 %; White Blood Count 4.9 K/mcL (4.3-11.1)
[2022-05-03 20:40] LABS: Color,Urine Dark Red (Yellow)
[2022-05-03 20:41] LABS: Clarity,Urine Turbid (Clear)
[2022-05-03 20:42] LABS: Bilirubin,Urine Negative (Negative); Blood,Urine Large (Negative); Glucose,Urine (UA) Normal (Normal); Ketones,Urine Negative (Negative); Leukocyte Esterase,Urine Moderate (Negative); Nitrite,Urine Negative (Negative); PH,Urine 6.5 pH Units (5.0-8.0); Protein,Urine 100 mg/dL (Neg-Trace); Urobilinogen,Urine Normal (Normal)
[2022-05-03] MEDS: Acetaminophen 325 MG TABLET PO PRN (21:22)
[2022-05-03] MEDS: traZODone 50 MG TABLET PO SCH (21:22)
[2022-05-03] MEDS: *HR* LORazepam 0.5 MG TABLET PO SCH (21:23)
[2022-05-03] MEDS: Melatonin 3 MG TABLET PO PRN (21:23)
[2022-05-04] MEDS: Ketorolac 30 MG/ML VIAL IVP PRN ×2 (04:00→11:19)
[2022-05-04] MEDS: 0.9 % Sodium Chloride 1,000 ML IVC SCH ×3 (04:00→23:48)
[2022-05-04] MEDS ORDERED: Morphine Sulfate 2 MG/ML SYRINGE IVP ONE (04:33)
[2022-05-04 06:19] LABS: Basophils % 0.5 %; Eosinophils # 0.4 K/mcL (0.0-0.6); Eosinophils % 6.2 %; Hematocrit 28.9 % (37.5-50.1); Hemoglobin 9.4 g/dL (12.9-16.9); Immature Granulocytes % 0.5 % (0-4); Lymphocytes # 1.5 K/mcL (0.6-4.6); Lymphocytes % 24.2 %; Mean Corpuscular HGB Conc 32.5 g/dL (31.6-35.5); Mean Corpuscular Hemoglobin 30.4 pg (28.0-33.3); Mean Corpuscular Volume 93.5 fL (83.0-100.0); Mean Platelet Volume 9.7 fL (9.4-12.4); Monocytes # 0.5 K/mcL (0.0-1.3); Neutrophils # 3.6 K/mcL (1.6-8.9); Platelet Count 270 K/mcL (140-400); Red Blood Count 3.09 M/mcL (4.19-5.50); Red Cell Distribution Width 14.3 % (11.5-14.5); Segmented Neutrophils % 60.6 %
[2022-05-04 06:26] LABS: Calcium 8.3 mg/dL (8.6-10.3); Magnesium 1.9 mg/dL (1.6-2.6); Potassium 4.7 mEq/L (3.5-5.1)
[2022-05-04] MEDS ORDERED: *HR* HYDROmorphone (PF) 1 MG/ML SYRINGE IVP ONE (07:18)
[2022-05-04] MEDS ORDERED: *HR* Belladonna Alkaloids/Opium 30 MG RECTAL SUPPOSITORY RC PRN (07:44)
[2022-05-04] MEDS: QUEtiapine Fumarate 25 MG TABLET PO SCH ×3 (08:08→19:40)
[2022-05-04] MEDS: Aspirin Enteric Coated 81 MG Tablet PO SCH (08:08)
[2022-05-04] MEDS: Finasteride 5 MG TABLET PO SCH (08:08)
[2022-05-04] MEDS: *HR* LORazepam 0.5 MG TABLET PO SCH ×4 (08:08→19:41)
[2022-05-04] MEDS: polyethylene glycoL 3350 17 GM POWD.PACK PO SCH (08:09)
[2022-05-04] MEDS: Linaclotide [Linzess] 145 MCG Capsule PO SCH (08:10)
[2022-05-04] MEDS: cefTRIAXone 1,000 MG in 0.9 % Sodium Chloride 10 ML IVP SCH (08:10)
[2022-05-04] MEDS: Insulin LISPRO 300 UNITS/3 ML VIAL SUBQ SCH ×3 (08:15→17:39)
[2022-05-04] MEDS: Ondansetron 4 MG/2 ML VIAL IVP PRN ×2 (08:21→19:50)
[2022-05-04] MEDS: Hyoscyamine SL 0.125 MG TAB.SUBL SL PRN ×2 (11:19→15:30)
[2022-05-04] MEDS: lisinopriL 5 MG TABLET PO SCH (11:19)
[2022-05-04] MEDS: Acetaminophen 325 MG TABLET PO PRN (19:41)
[2022-05-04] MEDS: Melatonin 3 MG TABLET PO PRN (21:41)
[2022-05-04] MEDS: traZODone 50 MG TABLET PO SCH (21:41)
[2022-05-05 03:06] LABS: Basophils % 0.5 %; Eosinophils # 0.5 K/mcL (0.0-0.6); Eosinophils % 8.3 %; Hematocrit 22.8 % (37.5-50.1); Immature Granulocytes % 0.5 % (0-4); Lymphocytes # 1.8 K/mcL (0.6-4.6); Lymphocytes % 29.4 %; Mean Corpuscular HGB Conc 32.9 g/dL (31.6-35.5); Mean Corpuscular Volume 94.2 fL (83.0-100.0); Mean Platelet Volume 9.3 fL (9.4-12.4); Monocytes # 0.5 K/mcL (0.0-1.3); Monocytes % 8.1 %; Neutrophils # 3.2 K/mcL (1.6-8.9); Platelet Count 237 K/mcL (140-400); Red Blood Count 2.42 M/mcL (4.19-5.50); Red Cell Distribution Width 14.3 % (11.5-14.5); Segmented Neutrophils % 53.2 %
[2022-05-05 03:13] LABS: Hemoglobin 7.5 g/dL (12.9-16.9)
[2022-05-05] MEDS: Ketorolac 30 MG/ML VIAL IVP PRN ×4 (03:33→23:45)
[2022-05-05] MEDS: Hyoscyamine SL 0.125 MG TAB.SUBL SL PRN ×2 (06:13→18:29)
[2022-05-05] MEDS: Acetaminophen 325 MG TABLET PO PRN (06:13)
[2022-05-05] MEDS: Insulin LISPRO 300 UNITS/3 ML VIAL SUBQ SCH ×3 (07:37→17:10)
[2022-05-05] MEDS: QUEtiapine Fumarate 25 MG TABLET PO SCH ×3 (08:05→20:03)
[2022-05-05] MEDS: cefTRIAXone 1,000 MG in 0.9 % Sodium Chloride 10 ML IVP SCH (08:06)
[2022-05-05] MEDS: Finasteride 5 MG TABLET PO SCH (08:06)
[2022-05-05] MEDS: Ondansetron 4 MG/2 ML VIAL IVP PRN ×2 (08:06→14:37)
[2022-05-05] MEDS: *HR* LORazepam 0.5 MG TABLET PO SCH ×4 (08:06→20:02)
[2022-05-05] MEDS: lisinopriL 5 MG TABLET PO SCH (08:06)
[2022-05-05] MEDS: polyethylene glycoL 3350 17 GM POWD.PACK PO SCH (08:08)
[2022-05-05] MEDS ORDERED: 0.9 % Sodium Chloride 500 ML IV.SOLN IVC PRN (08:58)
[2022-05-05] MEDS ORDERED: Iopamidol - 370 500 ML MLS IVP ONE (08:59)
[2022-05-05] MEDS: 0.9 % Sodium Chloride 1,000 ML IVC SCH ×2 (09:40→20:01)
[2022-05-05] MEDS: traZODone 50 MG TABLET PO SCH (20:03)
[2022-05-06 03:22] LABS: Magnesium 1.7 mg/dL (1.6-2.6); Phosphorous 3.9 mg/dL (2.7-4.5); Potassium 4.4 mEq/L (3.5-5.1)
[2022-05-06 05:52] LABS: Basophils % 0.4 %; Red Cell Distribution Width 14.5 % (11.5-14.5)
[2022-05-06 05:54] LABS: Eosinophils # 0.5 K/mcL (0.0-0.6); Eosinophils % 7.8 %; Hematocrit 24.9 % (37.5-50.1); Immature Granulocytes % 0.3 % (0-4); Immature Platelets 1.5 % (1.1-6.1); Lymphocytes # 1.6 K/mcL (0.6-4.6); Lymphocytes % 24.2 %; Mean Corpuscular HGB Conc 32.1 g/dL (31.6-35.5); Mean Corpuscular Hemoglobin 30.9 pg (28.0-33.3); Mean Corpuscular Volume 96.1 fL (83.0-100.0); Mean Platelet Volume 9.5 fL (9.4-12.4); Monocytes # 0.5 K/mcL (0.0-1.3); Monocytes % 8.1 %; Platelet Count 285 K/mcL (140-400); Red Blood Count 2.59 M/mcL (4.19-5.50); Segmented Neutrophils % 59.2 %; White Blood Count 6.7 K/mcL (4.3-11.1)
[2022-05-06] MEDS: Ketorolac 30 MG/ML VIAL IVP PRN (06:07)
[2022-05-06] MEDS: 0.9 % Sodium Chloride 1,000 ML IVC SCH ×2 (06:07→17:54)
[2022-05-06 06:30] LABS: Platelet Estimate Normal (Normal)
[2022-05-06] MEDS: Ondansetron 4 MG/2 ML VIAL IVP PRN ×2 (08:09→14:10)
[2022-05-06] MEDS: Acetaminophen 325 MG TABLET PO PRN ×3 (08:09→19:13)
[2022-05-06] MEDS: QUEtiapine Fumarate 25 MG TABLET PO SCH ×3 (09:12→20:48)
[2022-05-06] MEDS: lisinopriL 5 MG TABLET PO SCH (09:13)
[2022-05-06] MEDS: Finasteride 5 MG TABLET PO SCH (09:13)
[2022-05-06] MEDS: polyethylene glycoL 3350 17 GM POWD.PACK PO SCH (09:13)
[2022-05-06] MEDS: cefTRIAXone 1,000 MG in 0.9 % Sodium Chloride 10 ML IVP SCH (09:14)
[2022-05-06] MEDS: Insulin LISPRO 300 UNITS/3 ML VIAL SUBQ SCH ×3 (09:16→17:54)
[2022-05-06] MEDS: *HR* LORazepam 0.5 MG TABLET PO SCH ×4 (09:17→20:49)
[2022-05-06] MEDS: Hyoscyamine SL 0.125 MG TAB.SUBL SL PRN ×3 (10:02→19:13)
[2022-05-06] MEDS: Melatonin 3 MG TABLET PO PRN (20:48)
[2022-05-06] MEDS: traZODone 50 MG TABLET PO SCH (20:48)
[2022-05-07] MEDS: 0.9 % Sodium Chloride 1,000 ML IVC SCH (03:28)
[2022-05-07] MEDS: Acetaminophen 325 MG TABLET PO PRN ×2 (03:32→10:44)
[2022-05-07] MEDS: Hyoscyamine SL 0.125 MG TAB.SUBL SL PRN ×2 (03:32→11:33)
[2022-05-07 07:12] LABS: Basophils % 0.7 %; Eosinophils # 0.5 K/mcL (0.0-0.6); Eosinophils % 7.8 %; Hematocrit 24.3 % (37.5-50.1); Hemoglobin 7.9 g/dL (12.9-16.9); Immature Granulocytes % 0.5 % (0-4); Lymphocytes # 1.3 K/mcL (0.6-4.6); Mean Corpuscular HGB Conc 32.5 g/dL (31.6-35.5); Mean Corpuscular Hemoglobin 30.7 pg (28.0-33.3); Mean Corpuscular Volume 94.6 fL (83.0-100.0); Mean Platelet Volume 9.1 fL (9.4-12.4); Monocytes # 0.4 K/mcL (0.0-1.3); Monocytes % 6.5 %; Neutrophils # 3.7 K/mcL (1.6-8.9); Platelet Count 256 K/mcL (140-400); Red Blood Count 2.57 M/mcL (4.19-5.50); Red Cell Distribution Width 14.4 % (11.5-14.5); Segmented Neutrophils % 62.5 %; White Blood Count 5.9 K/mcL (4.3-11.1)
[2022-05-07 07:22] LABS: Calcium 8.2 mg/dL (8.6-10.3); Magnesium 1.6 mg/dL (1.6-2.6); Phosphorous 3.6 mg/dL (2.7-4.5); Potassium 4.2 mEq/L (3.5-5.1)
[2022-05-07] MEDS: Insulin LISPRO 300 UNITS/3 ML VIAL SUBQ SCH ×2 (08:14→12:09)
[2022-05-07] MEDS: Finasteride 5 MG TABLET PO SCH (08:21)
[2022-05-07] MEDS: *HR* LORazepam 0.5 MG TABLET PO SCH (08:22)
[2022-05-07] MEDS: QUEtiapine Fumarate 25 MG TABLET PO SCH (08:22)
[2022-05-07] MEDS: polyethylene glycoL 3350 17 GM POWD.PACK PO SCH (08:22)
[2022-05-07] MEDS: lisinopriL 5 MG TABLET PO SCH (08:22)
[2022-05-07] MEDS: cefTRIAXone 1,000 MG in 0.9 % Sodium Chloride 10 ML IVP SCH (08:31)
[2022-05-07 11:09] VITALS: BP 161/89; PULSE 78; TEMP 97.7; O2SAT 98
[2022-05-07] MEDS: Ondansetron 4 MG/2 ML VIAL IVP PRN (12:02)
== END 2022-05-07 13:44 | disposition home health service (06) | DRG 699 ==
LOC: EMEROOARM 03:56 → 3NENU 03:56 → SUATTDRO 09:58 → 3NENU 11:09
PROVIDERS: ADMIT Internal Medicine; ATTEND Internal Medicine

== ENCOUNTER 2022-05-23 10:00 | Observation (INO) ==
[2022-05-23 10:56] LABS: Basophils % 0.7 %; Eosinophils # 0.1 K/mcL (0.0-0.6); Eosinophils % 2.3 %; Hematocrit 28.9 % (37.5-50.1); Hemoglobin 9.3 g/dL (12.9-16.9); Immature Granulocytes % 0.5 % (0-4); Lymphocytes # 0.7 K/mcL (0.6-4.6); Lymphocytes % 17.1 %; Mean Corpuscular HGB Conc 32.2 g/dL (31.6-35.5); Mean Corpuscular Hemoglobin 29.5 pg (28.0-33.3); Mean Corpuscular Volume 91.7 fL (83.0-100.0); Mean Platelet Volume 9.6 fL (9.4-12.4); Monocytes # 0.3 K/mcL (0.0-1.3); Platelet Count 302 K/mcL (140-400); Red Blood Count 3.15 M/mcL (4.19-5.50); Red Cell Distribution Width 14.6 % (11.5-14.5); Segmented Neutrophils % 71.4 %; White Blood Count 4.3 K/mcL (4.3-11.1)
[2022-05-23 11:01] LABS: Amorphous Sediment,Urine Few per hpf (None-Few); Bilirubin,Urine Negative (Negative); Blood,Urine Moderate (Negative); Clarity,Urine Turbid (Clear); Color,Urine Yellow (Yellow); Glucose,Urine (UA) Normal (Normal); Hyaline Casts,Urine Few per lpf (None Seen); Ketones,Urine Negative (Negative); Leukocyte Esterase,Urine Small (Negative); Mucus,Urine Few per lpf (None-Few); Nitrite,Urine Negative (Negative); Protein,Urine 100 mg/dL (Neg-Trace); RBC,Urine TNTC per hpf (0-3); Specific Gravity,Urine 1.015 (1.010-1.025); Urobilinogen,Urine Normal (Normal); WBC,Urine 15-30 per hpf (0-3)
[2022-05-23 11:23] LABS: Alanine Aminotransferase 14 Units/L (7-52); Albumin 4.1 g/dL (3.5-5.7); Albumin/Globulin Ratio 1.4 (1.1-2.2); Alkaline Phosphatase 44 Units/L (34-104); Aspartate Amino Transferase 28 Units/L (13-39); BUN/Creatinine Ratio 8 (6-26); Bilirubin,Direct 0.1 mg/dL (0.0-0.2); Bilirubin,Indirect 0.3 mg/dL (0.0-1.0); Bilirubin,Total 0.4 mg/dL (0.3-1.0); Blood Urea Nitrogen 9 mg/dL (8-23); Calcium 8.9 mg/dL (8.6-10.3); Carbon Dioxide 25 mEq/L (23-29); Chloride 100 mEq/L (98-107); Globulin 2.9 g/dL (2.4-3.5); Glucose 121 mg/dL (70-105); Lipase 18 Units/L (11-82); Magnesium 2.2 mg/dL (1.6-2.6); Osmolality,Calculated 276 (280-300); Potassium 4.6 mEq/L (3.5-5.1); Sodium 133 mEq/L (136-145); Troponin I < 0.03 ng/mL (< 0.04)
[2022-05-23] MEDS ORDERED: cefTRIAXone 1,000 MG in Water for inj. (sterile) 10 ML IVP ONE (11:28)
[2022-05-23] MEDS ORDERED: Naloxone 0.4 MG/ML INJ IVP PRN (12:14)
[2022-05-23] MEDS ORDERED: Melatonin 3 MG TABLET PO PRN (12:14)
[2022-05-23] MEDS ORDERED: Acetaminophen 325 MG TABLET PO PRN ×2 (12:14→12:30)
[2022-05-23] MEDS ORDERED: Ondansetron 4 MG/2 ML VIAL IVP PRN (12:14)
[2022-05-23] MEDS ORDERED: 0.9 % Sodium Chloride 1,000 ML IVC SCH (12:15)
[2022-05-23] MEDS ORDERED: Hyoscyamine SL 0.125 MG TAB.SUBL SL PRN (12:24)
[2022-05-23] MEDS ORDERED: *HR* Belladonna Alkaloids/Opium 30 MG RECTAL SUPPOSITORY RC PRN (12:24)
[2022-05-23] MEDS ORDERED: Fluticasone Propionate Nasal 50 MCG/SPRAY BOTTLE NS PRN (12:24)
[2022-05-23] MEDS ORDERED: *HR* Dextrose 50 % in Water (Syg) 50 ML SYRINGE IVP PRN (12:33)
[2022-05-23] MEDS ORDERED: Dextrose Gel 15 GM/37.5 ML TUBE PO PRN ×2 (12:33)
[2022-05-23] MEDS ORDERED: D5% in Water 1,000 ML IVC PRN (12:33)
[2022-05-23] MEDS: *HR* LORazepam 1 MG TABLET PO SCH ×3 (13:41→19:54)
[2022-05-23] MEDS: QUEtiapine Fumarate 25 MG TABLET PO SCH ×2 (15:58→19:55)
[2022-05-23] MEDS: Insulin LISPRO 300 UNITS/3 ML VIAL SUBQ SCH (17:04)
[2022-05-23] MEDS: BuPROPion SR (12 HR) 100 MG TABLET PO SCH (19:56)
[2022-05-23] MEDS ORDERED: Melatonin 3 MG TABLET PO SCH (21:00)
[2022-05-23] MEDS ORDERED: traZODone 50 MG TABLET PO SCH (21:00)
[2022-05-23] MEDS ORDERED: Insulin LISPRO 300 UNITS/3 ML VIAL SUBQ SCH (21:00)
[2022-05-24 02:16] LABS: Basophils % 0.7 %; Eosinophils # 0.3 K/mcL (0.0-0.6); Eosinophils % 4.5 %; Hematocrit 27.4 % (37.5-50.1); Hemoglobin 8.8 g/dL (12.9-16.9); Immature Granulocytes % 0.2 % (0-4); Lymphocytes # 1.6 K/mcL (0.6-4.6); Lymphocytes % 28.7 %; Mean Corpuscular HGB Conc 32.1 g/dL (31.6-35.5); Mean Corpuscular Hemoglobin 29.3 pg (28.0-33.3); Mean Corpuscular Volume 91.3 fL (83.0-100.0); Mean Platelet Volume 8.4 fL (9.4-12.4); Monocytes # 0.6 K/mcL (0.0-1.3); Monocytes % 11.5 %; Platelet Count 284 K/mcL (140-400); Red Cell Distribution Width 14.6 % (11.5-14.5); Segmented Neutrophils % 54.4 %; White Blood Count 5.5 K/mcL (4.3-11.1)
[2022-05-24 02:23] LABS: INR 1.2; Prothrombin Time 13.4 Seconds (9.4-12.1)
[2022-05-24 02:43] LABS: Calcium 8.5 mg/dL (8.6-10.3); Potassium 4.5 mEq/L (3.5-5.1)
[2022-05-24 07:38] VITALS: BP 128/72; PULSE 68; TEMP 97.9; O2SAT 95
[2022-05-24] MEDS: Insulin LISPRO 300 UNITS/3 ML VIAL SUBQ SCH (07:43)
[2022-05-24] MEDS ORDERED: lisinopriL 5 MG TABLET PO SCH (09:00)
[2022-05-24] MEDS ORDERED: Finasteride 5 MG TABLET PO SCH (09:00)
[2022-05-24] MEDS: *HR* LORazepam 1 MG TABLET PO SCH (09:00)
[2022-05-24] MEDS: BuPROPion SR (12 HR) 100 MG TABLET PO SCH (09:00)
[2022-05-24] MEDS ORDERED: polyethylene glycoL 3350 17 GM POWD.PACK PO SCH (09:00)
[2022-05-24] MEDS: QUEtiapine Fumarate 25 MG TABLET PO SCH (09:01)
[2022-05-24] MEDS ORDERED: cefTRIAXone 1,000 MG in 0.9 % Sodium Chloride 10 ML IVPB SCH (12:00)
== END 2022-05-24 11:25 | disposition home or self-care (01) ==
LOC: 3ANU 10:00 → EMEROOARM 10:00 → SUATTDRO 12:05 → 3ANU 12:58
PROVIDERS: ADMIT Internal Medicine; ATTEND Internal Medicine